=== PATIENT | male | born 1970 | race African-American/Black ===

== ENCOUNTER 2020-08-27 21:05 | Inpatient (IN) ==
--- NOTE | 2020-08-27 21:37 | XRay Report ---
XR chest 1V portable HISTORY: Atypical Chest Pain COMPARISON: None. FINDINGS: No pneumothorax. The cardiac silhouette is mildly enlarged. There is near diffuse interstit ial/vascular thickening most pronounced within the perihilar location. This favors mild pulmonary melquiades ma. There are trace bilateral pleural effusions. IMPRESSION: Cardiomegaly with interstitial pulmonary edema and trace bilateral pleural effusions. ACT 112: Negative or not required by law. Electronically signed by: Brad Walker M.D. 08/27/2020 9:35 PM
[2020-08-27] MEDS ORDERED: ALBUTEROL 0.083% NEBU SOLN 3 ML VIAL NEB STA (21:57)
[2020-08-27] MEDS ORDERED: SODIUM CHLORIDE 0.9% 500 ML IV ONE (21:57)
--- NOTE | 2020-08-27 22:00 | Emergency Department Note ---
Impression & Plan Congestive heart failure, Abnormal ECG, Pulmonary edema, Acute hyperglycemia ED Provider Note NAME: LOPEZ RODRÍGUEZ AGE: 50 SEX: M : 1970 ARRIVES VIA: Walk-In INFORMANT: Patient ED PROVIDER(S): Chris Guzman DO CHIEF COMPLAINT: Shortness of breath and dry cough HPI: Patient is a 50-year-old male who presents to the ER for shortness of breath which has been getting worse for the past week. He admits to a little bit of a dry cough. Denies any runny nose or sore throat. No loss of taste or smell. No chest pain. No belly pain, nausea, vomiting, or diarrhea. No dysuria, urgency, or frequency. He has a history of diabetes, hypertension, hyperlipidemia and is a smoker. No history of COPD or asthma. He says that symptoms are worse when he lays down at night to sleep. No other exacerbating or remitting factors. 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 ROS: See above HPI for pertinent positives & negatives. A total of 10 systems reviewed and were otherwise negative. PAST MEDICAL HISTORY:See Below PAST SURGICAL HISTORY:See Below FAMILY HISTORY:See Below SOCIAL HISTORY:See Below HOME MEDICATIONS:See Below ALLERGIES:See Below VITALS:See Below PHYSICAL EXAMINATION: GENERAL: Sitting up in bed, alert, well appearing, well nourished, no distress, non-toxic EYE EXAM: normal conjunctiva. OROPHARYNX: no exudate, no erythema, lips, buccal mucosa, and tongue normal and mucous membranes are moist NECK: supple, no nuchal rigidity, no adenopathy, non-tender LUNGS: Clear to auscultation. Normal chest wall mechanics HEART: Tachycardic, S1 normal and S2 normal ABDOMEN: abdomen soft, non-tender, normo-active bowel sounds, no masses, no rebound or guarding. BACK: Back is symmetrical on inspection and there is no deformity, no midline tenderness, no CVA tenderness. SKIN: no rashes and no bruising UPPER EXTREMITIES: upper extremities are grossly normal. LOWER EXTREMITIES: No pitting edema. NEURO EXAM: Normal sensorium, cranial nerves II-XII grossly intact, normal speech, no gross weakness of arms, no gross weakness of legs. MEDICAL DECISION MAKING: Patient is a 50-year-old male who presents ER for shortness of breath. IV was established blood work was obtained. Labs show mild leukocytosis of 1500. No significant anemia. D-dimer was negative. BMP with an elevated glucose of 445. LFTs bilirubin was unremarkable. Troponin was detectable but not +0.032. Lipase was normal. proBNP slightly elevated at thousand. Covid was negative. Chest x-ray with pulmonary edema and small pleural effusions. EKG with T wave inversions. This in combination with the chest x-ray does support CHF. He was initially given fluids as a table while to get the chest x-ray. This was stopped and he was given IV Lasix. He was updated bedside. Discussed with the hospitalist admitted for further work-up. Triage Nursing notes reviewed. Limited review of prior medical records performed Vital Signs: reviewed and remarkable for HTN and tachy Differential diagnosis: Differential diagnoses includes but is not limited to pneumonia, bronchitis, COPD/Asthma exacerbation, pneumothorax, pulmonary embolism, congestive heart failure, acute coronary syndrome ER treatment provided: See below Diagnostics interpreted by me: ECG: Sinus rhythm rate of 117 Left axis T wave inversion in the high lateral leads T wave inversion V4 through V6 QTC 451 Cardiac Monitoring: An order was placed for continuous cardiac monitoring. The monitor shows a rate of 122 with sinus rhythm. Laboratory studies: As stated above and show below. Imaging studies: Chest x-ray with pulmonary vascular congestion Consultation(s): Discussed with Dr. Theodore Sevilla for further evaluation Procedures: none Critical Care: None Past Med/Surg History Social History Smoking Status: Current every day smoker Tobacco Type: Cigarettes Preferred Language: Sinhala Feels Safe at Home: Yes Allergies Allergies Allergy/AdvReac Type Severity Reaction Status Date / Time No Known Allergies Allergy Unverified 08/27/20 22:24 Home Meds Home Medications Medication Instructions Recorded Confirmed lisinopril-hydrochlorothiazide 1 tab PO DAILY 08/27/20 08/27/20 metformin 1,000 mg PO BID 08/27/20 08/27/20 Results & Data (ED) Vital Signs Vital Signs - 24 hr 08/27/20 21:06 08/27/20 21:30 08/27/20 22:00 Temperature 36.2 C L Temperature Source Temporal Artery Scan Pulse Rate 121 H 115 H 119 H Pulse Rate [Right Radial] Pulse Rate from SpO2 Sensor 114 H Respiratory Rate 18 24 34 H Respiratory Effort / Characteristics Non-Labored Respiratory Depth Normal Respiratory Pattern Regular Blood Pressure 169/117 H 156/91 H 145/97 H Blood Pressure Mean 134 112 113 Blood Pressure Position Sitting Pulse Oximetry 93 93 Oxygen Delivery Method Room Air Sepsis Recent Fever Within 48 Hours No Sepsis New/Unexplained Change in Mental Status N/A Sepsis Action Taken by Nursing No Action Required Pulse Oximetry Post Tiitration 93 08/27/20 22:05 08/27/20 22:30 08/27/20 23:30 Temperature Temperature Source Pulse Rate 117 H 116 H Pulse Rate [Right Radial] 116 H Pulse Rate from SpO2 Sensor 117 H Respiratory Rate 16 29 H 19 Respiratory Effort / Characteristics Non-Labored Spontaneous Respiratory Depth Respiratory Pattern Blood Pressure 145/102 H 137/118 H Blood Pressure Mean 116 124 Blood Pressure Position Pulse Oximetry 95 96 Oxygen Delivery Method Room Air Sepsis Recent Fever Within 48 Hours Sepsis New/Unexplained Change in Mental Status Sepsis Action Taken by Nursing Pulse Oximetry Post Tiitration 08/28/20 00:01 Temperature Temperature Source Pulse Rate 119 H Pulse Rate [Right Radial] Pulse Rate from SpO2 Sensor 120 H Respiratory Rate 32 H Respiratory Effort / Characteristics Respiratory Depth Respiratory Pattern Blood Pressure 138/90 Blood Pressure Mean 106 Blood Pressure Position Pulse Oximetry 97 Oxygen Delivery Method Sepsis Recent Fever Within 48 Hours Sepsis New/Unexplained Change in Mental Status Sepsis Action Taken by Nursing Pulse Oximetry Post Tiitration Laboratory Data Result diagrams: 08/27/20 21:20 08/27/20 21:20 Lab Results 08/27/20 08/27/20 08/27/20 Range/Units 21:20 21:20 21:20 WBC 11.53 H (4.8-10.8) K/uL RBC 4.41 L (4.7-6.1) M/uL Hgb 16.0 (14.0-18.0) g/dL Hct 44.5 (42-52) % MCV 100.9 H (80-100) fL MCH 36.3 H (25-34) pg MCHC 36.0 (32-36) g/dL RDW Std Deviation 44.6 (36.4-46.3) fL RDW Coeff of Airam 12.1 (11.5-14.5) % Plt Count 241 (130-400) K/uL MPV 11.1 H (7.4-10.4) fL Immature Gran % (Auto) 0.5 % Neut % (Auto) 65.0 % Lymph % (Auto) 23.9 % [place] % (Auto) 8.2 % Eos % (Auto) 2.2 % Baso % (Auto) 0.2 % Neut # (Auto) 7.49 H (1.4-6.5) K/uL Lymph # (Auto) 2.76 (1.2-3.4) K/uL [place] # (Auto) 0.95 H (0.11-0.59) K/uL Eos # (Auto) 0.25 (0-0.5) K/uL Baso # (Auto) 0.02 (0-0.2) K/uL Immature Gran # (Auto) 0.06 H (0.00-0.02) K/uL APTT 25.6 (21.0-31.0) Seconds PTT Ratio 1.0 D-Dimer 480 (0-500) ug/L FEU Sodium 134 L (136-145) mmol/L Potassium 4.1 (3.5-5.1) mmol/L Chloride 105 (98-107) mmol/L Carbon Dioxide 22 (21-32) mmol/L Anion Gap 7.0 (3-11) BUN 13 (7-18) mg/dl Creatinine 1.06 (0.6-1.4) mg/dl Est Cr Clr Drug Dosing 104.8 ml/min Est GFR ( Amer) 93.7 ml/min Est GFR (Non-Af Amer) 80.9 ml/min BUN/Creatinine Ratio 12.3 (10-20) Glucose 445 H* (70-99) mg/dl POC Glucose (70-99) mg/dl Calcium 9.0 (8.5-10.1) mg/dl Total Bilirubin 0.5 (0.2-1) mg/dl AST 55 H (15-37) U/L ALT 61 (12-78) U/L Alkaline Phosphatase 79 (45-117) U/L Troponin I 0.032 (0-0.045) ng/ml NT-Pro-B Natriuret Pep 972 H (0-900) pg/ml Total Protein 6.7 (6.4-8.2) gm/dl Albumin 3.3 L (3.4-5.0) gm/dl Globulin 3.4 (2.5-4.0) gm/dl Albumin/Globulin Ratio 1.0 (0.9-2) Lipase 139 (73-393) U/L Beta-Hydroxybutyric Acd (0.2-2.81) mg/dl COVID-19 Eval Order SARS-CoV-2 (PCR) (Negative) 08/27/20 08/27/20 08/27/20 Range/Units 21:20 21:20 22:58 WBC (4.8-10.8) K/uL RBC (4.7-6.1) M/uL Hgb (14.0-18.0) g/dL Hct (42-52) % MCV (80-100) fL MCH (25-34) pg MCHC (32-36) g/dL RDW Std Deviation (36.4-46.3) fL RDW Coeff of Airam (11.5-14.5) % Plt Count (130-400) K/uL MPV (7.4-10.4) fL Immature Gran % (Auto) % Neut % (Auto) % Lymph % (Auto) % [place] % (Auto) % Eos % (Auto) % Baso % (Auto) % Neut # (Auto) (1.4-6.5) K/uL Lymph # (Auto) (1.2-3.4) K/uL [place] # (Auto) (0.11-0.59) K/uL Eos # (Auto) (0-0.5) K/uL Baso # (Auto) (0-0.2) K/uL Immature Gran # (Auto) (0.00-0.02) K/uL APTT (21.0-31.0) Seconds PTT Ratio D-Dimer (0-500) ug/L FEU Sodium (136-145) mmol/L Potassium (3.5-5.1) mmol/L Chloride (98-107) mmol/L Carbon Dioxide (21-32) mmol/L Anion Gap (3-11) BUN (7-18) mg/dl Creatinine (0.6-1.4) mg/dl Est Cr Clr Drug Dosing ml/min Est GFR ( Amer) ml/min Est GFR (Non-Af Amer) ml/min BUN/Creatinine Ratio (10-20) Glucose (70-99) mg/dl POC Glucose 357 H* (70-99) mg/dl Calcium (8.5-10.1) mg/dl Total Bilirubin (0.2-1) mg/dl AST (15-37) U/L ALT (12-78) U/L Alkaline Phosphatase (45-117) U/L Troponin I (0-0.045) ng/ml NT-Pro-B Natriuret Pep (0-900) pg/ml Total Protein (6.4-8.2) gm/dl Albumin (3.4-5.0) gm/dl Globulin (2.5-4.0) gm/dl Albumin/Globulin Ratio (0.9-2) Lipase (73-393) U/L Beta-Hydroxybutyric Acd (0.2-2.81) mg/dl COVID-19 Eval Order Covid19 at [facility] SARS-CoV-2 (PCR) NEGATIVE (Negative) Administered Medications Discontinued Medications Albuterol (Albuterol 0.083% Nebu Soln 3 Ml Vial) 2.5 mg NEB NOW STA Stop: 08/27/20 21:58 Last Admin: 08/27/20 22:03 Dose: 2.5 mg Documented by: [id number] Furosemide (Furosemide 40 Mg/4 Ml Vial) 40 mg IV NOW STA Stop: 08/27/20 22:44 Last Admin: 08/27/20 22:48 Dose: 40 mg Documented by: [id number] Furosemide (Furosemide 40 Mg/4 Ml Vial) 40 mg IV NOW STA Stop: 08/27/20 23:50 Last Admin: 08/28/20 00:00 Dose: 40 mg Documented by: [id number] Sodium Chloride (Nss) 500 mls @ 999 mls/hr IV .Q31M ONE Stop: 08/27/20 22:27 Last Infusion: 08/27/20 22:44 Dose: 0 mls/hr Documented by: [id number] Admin: 08/27/20 22:09 Dose: 999 mls/hr Documented by: [id number] Insulin Human Regular (Novolin-R Insulin Per Unit Charge) 6 units IV NOW STA Stop: 08/27/20 23:29 Last Admin: 08/27/20 23:37 Dose: 6 units Documented by: [id number] Cosigned by: [id number] Imaging Data Radiologist's Impression: Chest X-Ray 08/27/20 21:25 XR chest 1V portable HISTORY: Atypical Chest Pain COMPARISON: None. FINDINGS: No pneumothorax. The cardiac silhouette is mildly enlarged. There is near diffuse interstitial/vascular thickening most pronounced within the perihilar location. This favors mild pulmonary edema. There are trace bilateral pleural effusions. IMPRESSION: Cardiomegaly with interstitial pulmonary edema and trace bilateral pleural effusions. ACT 112: Negative or not required by law. Electronically signed by: Brad Walker M.D. 08/27/2020 9:35 PM Discharge Plan Visit Data Chief Complaint: Shortness of Breath/Dyspnea Stated Complaint: SOB ED Provider: Chris Guzman Discharge Problem: Congestive heart failure, Abnormal ECG, Pulmonary edema, Acute hyperglycemia Forms Stand Alone Forms: 3C Plus Prescriptions Prescriptions: No Action metformin 1,000 mg Tablet 1,000 mg PO BID RF: 0 lisinopril-hydrochlorothiazide 10-12.5 mg Tablet 1 tab PO DAILY RF: 0 Discharge Problem: Congestive heart failure Qualifiers: Heart failure type: unspecified Heart failure chronicity: unspecified Qualified Code(s): I50.9 - Heart failure, unspecified Pulmonary edema Qualifiers: Chronicity: acute Qualified Code(s): J81.0 - Acute pulmonary edema
[2020-08-27 22:22] LABS: Basophils # (auto) 0.02 K/uL (0-0.2); Basophils % (auto) 0.2 %; Eosinophils # (auto) 0.25 K/uL (0-0.5); Eosinophils % (auto) 2.2 %; Hematocrit (blood only) 44.5 % (42-52); Immature Granulocytes # (auto) 0.06 K/uL (0.00-0.02); Immature Granulocytes % (auto) 0.5 %; Lymphocytes # (auto) 2.76 K/uL (1.2-3.4); Lymphocytes % (auto) 23.9 %; Mean Corpuscular Hemoglobin 36.3 pg (25-34); Mean Corpuscular Volume 100.9 fL (80-100); Mean Platelet Volume 11.1 fL (7.4-10.4); Monocytes # (auto) 0.95 K/uL (0.11-0.59); Monocytes % (auto) 8.2 %; Neutrophils # (auto) 7.49 K/uL (1.4-6.5); Platelet Count 241 K/uL (130-400); RDW Coefficient of Variation 12.1 % (11.5-14.5); RDW Standard Deviation 44.6 fL (36.4-46.3); Red Blood Count 4.41 M/uL (4.7-6.1); White Blood Count 11.53 K/uL (4.8-10.8)
[2020-08-27 22:33] LABS: Albumin Level 3.3 gm/dl (3.4-5.0); BUN Creatinine Ratio 12.3 (10-20); Bilirubin,Total 0.5 mg/dl (0.2-1); Creatinine Clr Calc Pharmacy 104.8 ml/min; Est GFR (African American) 93.7 ml/min; Est GFR (Non-African American) 80.9 ml/min; Potassium 4.1 mmol/L (3.5-5.1); Total Protein 6.7 gm/dl (6.4-8.2); Troponin I 0.032 ng/ml (0-0.045)
[2020-08-27 22:35] LABS: Globulin 3.4 gm/dl (2.5-4.0)
[2020-08-27 22:36] LABS: D Dimer 480 ug/L FEU (0-500); Partial Thromboplastin Time 25.6 Seconds (21.0-31.0)
[2020-08-27] MEDS ORDERED: FUROSEMIDE 40 MG/4 ML VIAL IV STA ×2 (22:43→23:49)
[2020-08-27] MEDS ORDERED: NovoLIN-R INSULIN PER UNIT CHARGE IV STA (23:28)
--- NOTE | 2020-08-27 23:51 | History & Physical Report ---
Date of Service August 27, 2020 Assessment & Plan (1) Pulmonary edema: Vignesh Lee is a 50-year-old male with past medical history significant for hypertension, diabetes; who presents for 1 week history of shortness of breath with exertion. Pulmonary edema: -CXR on admission demonstrating concerns for cardiomegaly with interstitial pulmonary edema and trace bilateral pleural effusions -BNP 972 -Mild troponin elevation (0.032) likely in the setting of cardiomegaly/heart strain will trend overnight -Mild white count elevation to 11.53, will continue to monitor -Covid negative -Received 40 of IV Lasix x2 in ED -Echo in a.m. -Repeat CXR in a.m. -Lipid profile in a.m. Diabetes: -Glucose on admission 445, patient was not fasting prior to this collection -Received 6 units of IV insulin in ED -Hold home oral regimen -BSG's ACHS -Sliding scale insulin ordered -A1c in a.m. Hypertension: -Continue home lisinopril/hydrochlorothiazide Diet: Low-sodium/carb consistent CODE STATUS: Full code (2) HTN (hypertension): (3) Diabetes: History of Present Illness Primary Care Provider: NO PCP Vignesh Lee is a 50-year-old male with past medical history significant for hypertension, diabetes; who presents for 1 week history of shortness of breath with exertion. 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 This culminated yesterday when he climbs 1 flight of stairs and felt winded to the point where he had to sit down. Has never previously had symptoms like this nor had requirements of needing to rest with such little exertion. Remains relatively active given his work, however endorses that over the last several weeks he has been eating worse than he normally would be. Does not recall any specific salty foods but realizes that this may have been a problem. Previously was a 20+ year smoker however decided given this admission this is the time to quit. Minimal alcohol consumption (1-2 times per month 1-2 drinks at a time). No recreational drug use. Did not have any chest pain, palpitations, headache, nausea, vomiting, swelling of arms or legs. Allergies Allergy/AdvReac Type Severity Reaction Status Date / Time No Known Allergies Allergy Unverified 08/27/20 22:24 Home Medications Medication Instructions Recorded Confirmed Type lisinopril-hydrochlorothiazide 1 tab PO DAILY 08/27/20 08/27/20 History metformin 1,000 mg PO BID 08/27/20 08/27/20 History Past Med/Surg History Social History Smoking Status: Former smoker Tobacco Type: Cigarettes Second Hand Exposure: No; Hx Alcohol Use: Yes Hx Substance Use: No Preferred Language: Cameroonian Beliefs That Will Affect Care: Yazidism Yazidism Beliefs: Faith, no pork products Current Living Situation: Family Feels Safe at Home: Yes Safety Concerns: Feels Safe At This Time Assistive Devices: Glasses Review of Systems Review of Systems: All systems reviewed & are unremarkable except as noted in HPI & below Physical Exam Constitutional: WD/WN, vitals as above Eyes: PERRL, conjunctivae normal, anicteric sclerae Respiratory: normal respiratory effort, lungs clear to auscultation Auscultation: no crackles, no rales, no rhonchi and no wheezes Cardiovascular: Rate/Rhythm: regular rhythm and + tachycardic Heart Sounds: no gallop, no murmur and no cardiac rub Vessels: normal peripheral pulses; no JVD Extremities: no edema Gastrointestinal (Abdomen): Inspection/Auscultation: normal bowel sounds; abdomen not distended Percussion/Palpation: abdomen soft; abdomen nontender and no guarding Musculoskeletal: no cyanosis or clubbing, extremities motor strength 5/5 Skin: no rashes, warm and dry Neurologic: PERRL, EOMI, accommodation nl, no face palsy, no dysarthria CN's II-XI intact bilaterally and moves all extremities Psychiatric: Orientation: alert and oriented x 3 Results & Data Results & Data ([facility]) Vital Signs (Past 12 Hours) Vital Signs Temp Pulse Pulse Resp BP Pulse Ox 08/27/20 22:30 117 H 29 H 145/102 H 96 08/27/20 22:05 116 H 16 95 08/27/20 22:00 119 H 34 H 145/97 H 08/27/20 21:30 115 H 24 156/91 H 93 08/27/20 21:06 36.2 C L 121 H 18 169/117 H 93 Laboratory Results 08/28/20 08/27/20 08/27/20 Range/Units 01:36 22:58 21:20 WBC (4.8-10.8) K/uL RBC (4.7-6.1) M/uL Hgb (14.0-18.0) g/dL Hct (42-52) % MCV (80-100) fL MCH (25-34) pg MCHC (32-36) g/dL RDW Std Deviation (36.4-46.3) fL RDW Coeff of Airam (11.5-14.5) % Plt Count (130-400) K/uL MPV (7.4-10.4) fL Immature Gran % (Auto) % Neut % (Auto) % Lymph % (Auto) % [place] % (Auto) % Eos % (Auto) % Baso % (Auto) % Neut # (Auto) (1.4-6.5) K/uL Lymph # (Auto) (1.2-3.4) K/uL [place] # (Auto) (0.11-0.59) K/uL Eos # (Auto) (0-0.5) K/uL Baso # (Auto) (0-0.2) K/uL Immature Gran # (Auto) (0.00-0.02) K/uL APTT (21.0-31.0) Seconds PTT Ratio D-Dimer (0-500) ug/L FEU Sodium (136-145) mmol/L Potassium (3.5-5.1) mmol/L Chloride (98-107) mmol/L Carbon Dioxide (21-32) mmol/L Anion Gap (3-11) BUN (7-18) mg/dl Creatinine (0.6-1.4) mg/dl Est Cr Clr Drug Dosing ml/min Est GFR ( Amer) ml/min Est GFR (Non-Af Amer) ml/min BUN/Creatinine Ratio (10-20) Glucose (70-99) mg/dl POC Glucose 254 H 357 H* (70-99) mg/dl Calcium (8.5-10.1) mg/dl Total Bilirubin (0.2-1) mg/dl AST (15-37) U/L ALT (12-78) U/L Alkaline Phosphatase (45-117) U/L Troponin I (0-0.045) ng/ml NT-Pro-B Natriuret Pep (0-900) pg/ml Total Protein (6.4-8.2) gm/dl Albumin (3.4-5.0) gm/dl Globulin (2.5-4.0) gm/dl Albumin/Globulin Ratio (0.9-2) Lipase (73-393) U/L Beta-Hydroxybutyric Acd (0.2-2.81) mg/dl COVID-19 Eval Order SARS-CoV-2 (PCR) NEGATIVE (Negative) 08/27/20 08/27/20 08/27/20 Range/Units 21:20 21:20 21:20 WBC (4.8-10.8) K/uL RBC (4.7-6.1) M/uL Hgb (14.0-18.0) g/dL Hct (42-52) % MCV (80-100) fL MCH (25-34) pg MCHC (32-36) g/dL RDW Std Deviation (36.4-46.3) fL RDW Coeff of Airam (11.5-14.5) % Plt Count (130-400) K/uL MPV (7.4-10.4) fL Immature Gran % (Auto) % Neut % (Auto) % Lymph % (Auto) % [place] % (Auto) % Eos % (Auto) % Baso % (Auto) % Neut # (Auto) (1.4-6.5) K/uL Lymph # (Auto) (1.2-3.4) K/uL [place] # (Auto) (0.11-0.59) K/uL Eos # (Auto) (0-0.5) K/uL Baso # (Auto) (0-0.2) K/uL Immature Gran # (Auto) (0.00-0.02) K/uL APTT 25.6 (21.0-31.0) Seconds PTT Ratio 1.0 D-Dimer 480 (0-500) ug/L FEU Sodium 134 L (136-145) mmol/L Potassium 4.1 (3.5-5.1) mmol/L Chloride 105 (98-107) mmol/L Carbon Dioxide 22 (21-32) mmol/L Anion Gap 7.0 (3-11) BUN 13 (7-18) mg/dl Creatinine 1.06 (0.6-1.4) mg/dl Est Cr Clr Drug Dosing 104.8 ml/min Est GFR ( Amer) 93.7 ml/min Est GFR (Non-Af Amer) 80.9 ml/min BUN/Creatinine Ratio 12.3 (10-20) Glucose 445 H* (70-99) mg/dl POC Glucose (70-99) mg/dl Calcium 9.0 (8.5-10.1) mg/dl Total Bilirubin 0.5 (0.2-1) mg/dl AST 55 H (15-37) U/L ALT 61 (12-78) U/L Alkaline Phosphatase 79 (45-117) U/L Troponin I 0.032 (0-0.045) ng/ml NT-Pro-B Natriuret Pep 972 H (0-900) pg/ml Total Protein 6.7 (6.4-8.2) gm/dl Albumin 3.3 L (3.4-5.0) gm/dl Globulin 3.4 (2.5-4.0) gm/dl Albumin/Globulin Ratio 1.0 (0.9-2) Lipase 139 (73-393) U/L Beta-Hydroxybutyric Acd (0.2-2.81) mg/dl COVID-19 Eval Order Covid19 at [facility] SARS-CoV-2 (PCR) (Negative) 08/27/20 Range/Units 21:20 WBC 11.53 H (4.8-10.8) K/uL RBC 4.41 L (4.7-6.1) M/uL Hgb 16.0 (14.0-18.0) g/dL Hct 44.5 (42-52) % MCV 100.9 H (80-100) fL MCH 36.3 H (25-34) pg MCHC 36.0 (32-36) g/dL RDW Std Deviation 44.6 (36.4-46.3) fL RDW Coeff of Airam 12.1 (11.5-14.5) % Plt Count 241 (130-400) K/uL MPV 11.1 H (7.4-10.4) fL Immature Gran % (Auto) 0.5 % Neut % (Auto) 65.0 % Lymph % (Auto) 23.9 % [place] % (Auto) 8.2 % Eos % (Auto) 2.2 % Baso % (Auto) 0.2 % Neut # (Auto) 7.49 H (1.4-6.5) K/uL Lymph # (Auto) 2.76 (1.2-3.4) K/uL [place] # (Auto) 0.95 H (0.11-0.59) K/uL Eos # (Auto) 0.25 (0-0.5) K/uL Baso # (Auto) 0.02 (0-0.2) K/uL Immature Gran # (Auto) 0.06 H (0.00-0.02) K/uL APTT (21.0-31.0) Seconds PTT Ratio D-Dimer (0-500) ug/L FEU Sodium (136-145) mmol/L Potassium (3.5-5.1) mmol/L Chloride (98-107) mmol/L Carbon Dioxide (21-32) mmol/L Anion Gap (3-11) BUN (7-18) mg/dl Creatinine (0.6-1.4) mg/dl Est Cr Clr Drug Dosing ml/min Est GFR ( Amer) ml/min Est GFR (Non-Af Amer) ml/min BUN/Creatinine Ratio (10-20) Glucose (70-99) mg/dl POC Glucose (70-99) mg/dl Calcium (8.5-10.1) mg/dl Total Bilirubin (0.2-1) mg/dl AST (15-37) U/L ALT (12-78) U/L Alkaline Phosphatase (45-117) U/L Troponin I (0-0.045) ng/ml NT-Pro-B Natriuret Pep (0-900) pg/ml Total Protein (6.4-8.2) gm/dl Albumin (3.4-5.0) gm/dl Globulin (2.5-4.0) gm/dl Albumin/Globulin Ratio (0.9-2) Lipase (73-393) U/L Beta-Hydroxybutyric Acd (0.2-2.81) mg/dl COVID-19 Eval Order SARS-CoV-2 (PCR) (Negative) Medications Administered Current Inpatient Medications Acetaminophen (Acetaminophen 325 Mg Tab) 650 mg PO Q4H PRN PRN Reason: pain/fever Stop: 09/27/20 01:23 Al Hydrox/Mg Hydrox/Simethicone (Aluminum/Magnesium Susp 30 Ml Udc) 30 ml PO Q6H PRN PRN Reason: Dyspepsia Stop: 09/27/20 01:23 Dextrose (Dextrose 50% 50 Ml Syringe) 25 - 50 ml IV UD PRN; Protocol PRN Reason: Hypoglycemia Protocol Stop: 09/27/20 01:23 Glucagon (Glucagon For Inj 1 Mg Vial) 1 mg SQ UD PRN; Protocol PRN Reason: Hypoglycemia Protocol Stop: 09/27/20 01:23 Glucose (Glucose 10 Tabs/Tube) 4 - 8 tabs PO UD PRN; Protocol PRN Reason: Hypoglycemia Protocol Stop: 09/27/20 01:23 Glucose (Glucose 40% Gel 15 Gm Tube) 15 - 30 gm PO UD PRN; Protocol PRN Reason: Hypoglycemia Protocol Stop: 09/27/20 01:23 Lisinopril/HCTZ (Lisinopril/Hctz 10/12.5mg Tab) 1 tab PO DAILY MALAIKA Stop: 09/27/20 08:59 Insulin Aspart (Insulin Aspart 100 Units/Ml 3 Ml Pen) 0 units SC ACHS MALAIKA Stop: 09/27/20 01:59 Last Admin: 08/28/20 02:05 Dose: 3 units Documented by: Magnesium Hydroxide (Magnesium Hydroxide Susp 30 Ml Udc) 30 ml PO Q6H PRN PRN Reason: Constipation Stop: 09/27/20 01:23 Miscellaneous (Carbohydrates For Hypoglycemia ) 15 - 30 gm PO UD PRN PRN Reason: Hypoglycemia Protocol Stop: 09/27/20 01:23 Ondansetron HCl (Ondansetron Inj 2 Mg/Ml 2 Ml Vial) 4 mg IV Q6H PRN PRN Reason: Nausea Stop: 09/27/20 01:23 Polyethylene Glycol (Polyethylene (Miralax) 17 Gm Pack) 17 gm PO DAILY PRN PRN Reason: Constipation Stop: 09/27/20 01:23 Supervising Physician Co-Signing Physician Notes Attending addendum: I have physically seen this patient, have supervised the medical residents activities, and agree with the H&P unless as otherwise noted. Assessment and Plan: Interstitial pulmonary edema/CHF/hypertension- The patient will be admitted to telemetry for serial cardiac enzymes, serial EKG's, cardiac rhythm monitoring and a 2-D echocardiogram with Dopplers. Received a total of Lasix 80 mg IV in the ED Follow serial chest x-rays and BMP Hold lisinopril/HCTZ due to borderline blood pressure Diabetes mellitus- Glucose on admission 445, for which he received 6 units IV regular insulin from the ED Placed on Accu-Cheks before meals and at bedtime with NovoLog coverage per scale May require an additional regular insulin IV bolus Check a hemoglobin A1c Remaining orders and notations as noted Resident Activity Tracking Resident Involvement: Resident Care Provided Care Provided: Adult Hospital Medicine (1) Pulmonary edema Chronicity: acute Qualified Code(s): J81.0 - Acute pulmonary edema
[2020-08-28] MEDS ORDERED: GLUCAGON FOR INJ 1 MG VIAL SQ PRN (01:24)
[2020-08-28] MEDS ORDERED: ACETAMINOPHEN 325 MG TAB PO PRN (01:24)
[2020-08-28] MEDS ORDERED: POLYETHYLENE (MIRALAX) 17 GM PACK PO PRN (01:24)
[2020-08-28] MEDS ORDERED: ALUMINUM/MAGNESIUM SUSP 30 ML UDC PO PRN (01:24)
[2020-08-28] MEDS ORDERED: CARBOHYDRATES FOR HYPOGLYCEMIA PO PRN (01:24)
[2020-08-28] MEDS ORDERED: GLUCOSE 10 TABS/TUBE PO PRN (01:24)
[2020-08-28] MEDS ORDERED: ONDANSETRON INJ 2 MG/ML 2 ML VIAL IV PRN (01:24)
[2020-08-28] MEDS ORDERED: MAGNESIUM HYDROXIDE SUSP 30 ML UDC PO PRN (01:24)
[2020-08-28] MEDS ORDERED: DEXTROSE 50% 50 ML SYRINGE IV PRN (01:24)
[2020-08-28] MEDS ORDERED: GLUCOSE 40% GEL 15 GM TUBE PO PRN (01:24)
[2020-08-28] MEDS ORDERED: METOPROLOL TARTRATE 1 MG/ML VIAL IV STA (01:39)
[2020-08-28] MEDS: INSULIN ASPART 100 UNITS/ML 3 ML PEN SC SCH ×5 (02:05→20:12)
[2020-08-28 06:23] LABS: Basophils # (auto) 0.02 K/uL (0-0.2); Basophils % (auto) 0.2 %; Eosinophils # (auto) 0.19 K/uL (0-0.5); Eosinophils % (auto) 1.6 %; Hematocrit (blood only) 43.3 % (42-52); Hemoglobin 15.6 g/dL (14.0-18.0); Immature Granulocytes # (auto) 0.06 K/uL (0.00-0.02); Immature Granulocytes % (auto) 0.5 %; Lymphocytes # (auto) 2.19 K/uL (1.2-3.4); Lymphocytes % (auto) 18.9 %; Mean Corpuscular Hemoglobin 37.1 pg (25-34); Mean Corpuscular Volume 102.9 fL (80-100); Mean Platelet Volume 10.6 fL (7.4-10.4); Monocytes # (auto) 0.86 K/uL (0.11-0.59); Monocytes % (auto) 7.4 %; Neutrophils # (auto) 8.28 K/uL (1.4-6.5); Neutrophils % (auto) 71.4 %; Platelet Count 242 K/uL (130-400); RDW Coefficient of Variation 12.1 % (11.5-14.5); RDW Standard Deviation 45.9 fL (36.4-46.3); Red Blood Count 4.21 M/uL (4.7-6.1)
[2020-08-28 06:58] LABS: BUN Creatinine Ratio 17.9 (10-20); Calcium 8.7 mg/dl (8.5-10.1); Creatinine Clr Calc Pharmacy 130.7 ml/min; Est GFR (African American) 116.9 ml/min; Est GFR (Non-African American) 100.9 ml/min; Potassium 3.6 mmol/L (3.5-5.1)
[2020-08-28 07:19] LABS: Estimated Average Glucose 286 mg/dl; Hemoglobin A1C 11.6 % (4.5-5.6)
--- NOTE | 2020-08-28 08:48 | XRay Report ---
XR chest 1V portable HISTORY: 50 years-old Male pulmonary edema acute shortness of breath COMPARISON: Chest radiograph 08/27/2020 TECHNIQUE: Portable AP view of the chest FINDINGS: Cardiac silhouette is enlarged. Pulmonary vascular congestion with decreased pulmonary edema. Trace p leural effusions. Mild right greater than left bibasilar opacities. No pneumothorax. Degenerative ace nges of the shoulders and spine. IMPRESSION: 1. Cardiomegaly with decreased pulmonary edema. 2. Trace pleural effusions. 3. Mild asymmetric right lung base opacities suggestive of atelectasis. Pneumonia considered less lik leonila. ACT 112: Negative or not required by law. The above report was generated using voice recognition software. It may contain grammatical, syntax o r spelling errors. Electronically signed by: Darinel Dominguez M.D. 08/28/2020 8:47 AM
[2020-08-28] MEDS ORDERED: LISINOPRIL/HCTZ 10/12.5MG TAB PO SCH (09:00)
[2020-08-28] MEDS ORDERED: FUROSEMIDE 40 MG in SYRINGE 0 ML IV ONE ×2 (09:15→17:00)
[2020-08-28] MEDS: MAGNESIUM OXIDE 400 MG TAB PO SCH ×2 (09:35→20:10)
[2020-08-28] MEDS: INSULIN GLARGINE SOLOSTAR 100 UNITS/ML 3 ML PEN SC SCH ×2 (09:35→20:11)
[2020-08-28] MEDS: POTASSIUM CHLORIDE CRTAB 20 MEQ TABCR PO SCH ×2 (09:35→20:10)
--- NOTE | 2020-08-28 11:09 | XCELERA ---
[id number]
[2020-08-28 14:58] LABS: Ferritin 146.6 ng/ml (8-388); Thyroid Stimulating Hormone 2.73 uIu/ml (0.300-4.500); Troponin I 0.034 ng/ml (0-0.045)
[2020-08-28 15:28] LABS: Folate (Folic Acid) > 20.00 ng/ml (>5.38); Vitamin B12 139 pg/ml (193-986)
[2020-08-28] MEDS ORDERED: CYANOCOBALAMIN 1000 MCG/ML VIAL IM ONE (17:00)
--- NOTE | 2020-08-28 22:08 | Hospitalist Progress Note ---
Date of Service August 28, 2020 Assessment & Plan (1) Acute combined systolic and diastolic heart failure: Patient with new-onset cardiomyopathy, etiology uncertain. EF 30-35%; global hypokinesis. No LVH. Diastolic dysfunction present. No valvular disease. No prior h/o CAD. He remains volume overloaded but improved clinically & radiographically since admission. Gave 2 doses of IV lasix 40mg today with excellent diuresis. Will hold off on beta elizabeth today as tachycardia is compensatory. But can likely start metoprolol xl 25mg once daily tomorrow. Restart ZENA but will lower to 5mg/day. Stop HCTZ. Add K and mag supplementation. Recheck labs in am. Salt-restricted diet. Fluid-restrict. Needs CHF teaching. See "cardiomyopathy" below for additional details. (2) Cardiomyopathy: Etiology uncertain. Ischemic? - but no wall motion abnormalities on echo. [id number]-[id number], given his uncontrolled DM, abnormal EKG, and HTN, deserves ischemic evaluation. Post-viral? - but no recent infectious process. Certainly at risk of COVID with frequent travel. Check COVID serum antibodies. COVID PCR on intake was negative. SLE / other autoimmune? Mother had SLE. Send ARTURO. Check ZENA level. Check ferritin, SPEP. Patient has B12 deficiency and macrocytosis. Thus, check for other deficiencies including thiamine. Diurese. Add BB tomorrow. Continue ZENA (vs entresto). At discharge - lasix 40mg daily vs BID. Formal cardiology consultation with [facility] cardiology. (3) Macrocytosis: 2nd b12 deficiency. see below. folate level wnl. check thiamine to be complete. (4) Vitamin B12 deficiency: severe. unusual given his age and overall diet. he is not vegan. start vitamin B12 injections while here, then send home on vitamin B12 1000mcg daily. will need f/u as outpatient. (5) Diabetes mellitus type 2, uncontrolled: severely uncontrolled. a1c 11.6%. add lantus 15 units BID. novolog correction with carb coverage. resume metformin at d/c. ideally needs lantus at discharge as well. (6) Essential (primary) hypertension: controlled. continue ZENA but stop HCTZ as he will need lasix at discharge. add low-dose BB tomorrow. (7) Abnormal ECG: lateral ST changes on limb leads and anterior leads. no prior h/o CAD. trops neg x 3. no recent ischemic symptoms. no regional wall motion abnormalities on 2D echo. [id number] he has risk factors for CAD - uncontrolled T2DM, HTN, etc. as part of new-onset cardiomyopathy will need ischemic evaluation. likely he will get this back in [place]. (8) DVT prophylaxis: start lovenox 40mg daily updated at bedside brief update given to sister by phone Admission and Anticipated Discharge Date Admission Date: August 27, 2020 Subjective patient is feeling better today. orthopnea and dyspnea improved. denies LE edema. denies abdominal swelling/increasing girth. denies any exertional chest pain in the months leading up to this admission. patient denies h/o recent illness, COVID, etc. 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 denies excessive etoh use. denies h/o illicit drug use. he practices the Islamic татьяна and does not eat pork; however, he consumes all other foods. patient denies any family h/o CAD or CHF. his mother, however, had SLE. he denies h/o sarcoid. Review of Systems Constitutional: no fever, no chills, no weakness and no anorexia Respiratory: + dyspnea on exertion Cardiovascular: + dyspnea on exertion and + orthopnea; no chest pain, no dyspnea at rest and no edema Gastrointestinal: no abdominal pain and no bloating Physical Exam Constitutional: no acute distress and no altered mental status ENMT: external ear and nose normal, oropharynx normal Respiratory: no respiratory distress Auscultation: + rales (bases b/l - mild); no wheezes Cardiovascular: Rate/Rhythm: regular rhythm and + tachycardic Heart Sounds: normal S1, normal S2 and + gallop; no murmur Vessels: posterior tibial pulses present and dorsalis pedis pulses present; no JVD Extremities: + edema (trace b/l ) Gastrointestinal (Abdomen): normal bowel sounds, soft, nontender, no hepatosplenomegaly Skin: no rashes, warm and dry Psychiatric: A+Ox3, euthymic affect Results & Data Results & Data ([facility]) Vital Signs (Past 12 Hours) Vital Signs Temp Pulse Pulse Resp BP Pulse Ox 08/28/20 19:40 37.0 C 102 H 18 129/76 97 08/28/20 15:36 108 H 08/28/20 15:16 36.8 C 106 H 18 129/88 96 08/28/20 11:29 36.6 C 104 H 20 145/96 H 96 Laboratory Results Laboratory Results - last 24 hr 08/27/20 08/27/20 08/27/20 21:20 21:20 21:20 WBC 11.53 H RBC 4.41 L Hgb 16.0 Hct 44.5 MCV 100.9 H MCH 36.3 H MCHC 36.0 RDW Std Deviation 44.6 RDW Coeff of Airam 12.1 Plt Count 241 MPV 11.1 H Immature Gran % (Auto) 0.5 Neut % (Auto) 65.0 Lymph % (Auto) 23.9 [place] % (Auto) 8.2 Eos % (Auto) 2.2 Baso % (Auto) 0.2 Neut # (Auto) 7.49 H Lymph # (Auto) 2.76 [place] # (Auto) 0.95 H Eos # (Auto) 0.25 Baso # (Auto) 0.02 Immature Gran # (Auto) 0.06 H APTT 25.6 PTT Ratio 1.0 D-Dimer 480 Sodium 134 L Potassium 4.1 Chloride 105 Carbon Dioxide 22 Anion Gap 7.0 BUN 13 Creatinine 1.06 Est Cr Clr Drug Dosing 104.8 Est GFR ( Amer) 93.7 Est GFR (Non-Af Amer) 80.9 BUN/Creatinine Ratio 12.3 Glucose 445 H* POC Glucose Estimat Average Glucose Hemoglobin A1c Calcium 9.0 Iron Transferrin Transferrin % Sat Ferritin Total Bilirubin 0.5 AST 55 H ALT 61 Alkaline Phosphatase 79 Troponin I 0.032 NT-Pro-B Natriuret Pep 972 H Total Protein 6.7 Albumin 3.3 L Globulin 3.4 Albumin/Globulin Ratio 1.0 Triglycerides Cholesterol LDL Cholesterol, Calc VLDL Cholesterol, Calc HDL Cholesterol Cholesterol/HDL Ratio Lipase 139 Angiotensin Convert Enz Vitamin B12 Folate Beta-Hydroxybutyric Acd TSH SARS-CoV-2 (PCR) SARS-CoV-2 IgG & IgM Ab 08/27/20 08/27/20 08/28/20 21:20 22:58 01:36 WBC RBC Hgb Hct MCV MCH MCHC RDW Std Deviation RDW Coeff of Airam Plt Count MPV Immature Gran % (Auto) Neut % (Auto) Lymph % (Auto) [place] % (Auto) Eos % (Auto) Baso % (Auto) Neut # (Auto) Lymph # (Auto) [place] # (Auto) Eos # (Auto) Baso # (Auto) Immature Gran # (Auto) APTT PTT Ratio D-Dimer Sodium Potassium Chloride Carbon Dioxide Anion Gap BUN Creatinine Est Cr Clr Drug Dosing Est GFR ( Amer) Est GFR (Non-Af Amer) BUN/Creatinine Ratio Glucose POC Glucose 357 H* 254 H Estimat Average Glucose Hemoglobin A1c Calcium Iron Transferrin Transferrin % Sat Ferritin Total Bilirubin AST ALT Alkaline Phosphatase Troponin I NT-Pro-B Natriuret Pep Total Protein Albumin Globulin Albumin/Globulin Ratio Triglycerides Cholesterol LDL Cholesterol, Calc VLDL Cholesterol, Calc HDL Cholesterol Cholesterol/HDL Ratio Lipase Angiotensin Convert Enz Vitamin B12 Folate Beta-Hydroxybutyric Acd TSH SARS-CoV-2 (PCR) NEGATIVE SARS-CoV-2 IgG & IgM Ab 08/28/20 08/28/20 08/28/20 05:44 05:44 06:11 WBC 11.60 H RBC 4.21 L Hgb 15.6 Hct 43.3 MCV 102.9 H MCH 37.1 H MCHC 36.0 RDW Std Deviation 45.9 RDW Coeff of Airam 12.1 Plt Count 242 MPV 10.6 H Immature Gran % (Auto) 0.5 Neut % (Auto) 71.4 Lymph % (Auto) 18.9 [place] % (Auto) 7.4 Eos % (Auto) 1.6 Baso % (Auto) 0.2 Neut # (Auto) 8.28 H Lymph # (Auto) 2.19 [place] # (Auto) 0.86 H Eos # (Auto) 0.19 Baso # (Auto) 0.02 Immature Gran # (Auto) 0.06 H APTT PTT Ratio D-Dimer Sodium 136 Potassium 3.6 Chloride 104 Carbon Dioxide 24 Anion Gap 8.0 BUN 15 Creatinine 0.85 Est Cr Clr Drug Dosing 130.7 Est GFR ( Amer) 116.9 Est GFR (Non-Af Amer) 100.9 BUN/Creatinine Ratio 17.9 Glucose 298 H POC Glucose Estimat Average Glucose 286 Hemoglobin A1c 11.6 H Calcium 8.7 Iron Transferrin Transferrin % Sat Ferritin Total Bilirubin AST ALT Alkaline Phosphatase Troponin I NT-Pro-B Natriuret Pep Total Protein Albumin Globulin Albumin/Globulin Ratio Triglycerides 100 Cholesterol 154 LDL Cholesterol, Calc 93 VLDL Cholesterol, Calc 20 HDL Cholesterol 41 Cholesterol/HDL Ratio 4 Lipase Angiotensin Convert Enz Vitamin B12 Folate Beta-Hydroxybutyric Acd TSH SARS-CoV-2 (PCR) SARS-CoV-2 IgG & IgM Ab 08/28/20 08/28/20 08/28/20 06:11 07:37 11:45 WBC RBC Hgb Hct MCV MCH MCHC RDW Std Deviation RDW Coeff of Airam Plt Count MPV Immature Gran % (Auto) Neut % (Auto) Lymph % (Auto) [place] % (Auto) Eos % (Auto) Baso % (Auto) Neut # (Auto) Lymph # (Auto) [place] # (Auto) Eos # (Auto) Baso # (Auto) Immature Gran # (Auto) APTT PTT Ratio D-Dimer Sodium Potassium Chloride Carbon Dioxide Anion Gap BUN Creatinine Est Cr Clr Drug Dosing Est GFR ( Amer) Est GFR (Non-Af Amer) BUN/Creatinine Ratio Glucose POC Glucose 280 H 320 H* Estimat Average Glucose Hemoglobin A1c Calcium Iron Transferrin Transferrin % Sat Ferritin Total Bilirubin AST ALT Alkaline Phosphatase Troponin I 0.030 NT-Pro-B Natriuret Pep Total Protein Albumin Globulin Albumin/Globulin Ratio Triglycerides Cholesterol LDL Cholesterol, Calc VLDL Cholesterol, Calc HDL Cholesterol Cholesterol/HDL Ratio Lipase Angiotensin Convert Enz Vitamin B12 Folate Beta-Hydroxybutyric Acd TSH SARS-CoV-2 (PCR) SARS-CoV-2 IgG & IgM Ab 08/28/20 08/28/20 08/28/20 11:45 14:20 14:20 WBC RBC Hgb Hct MCV MCH MCHC RDW Std Deviation RDW Coeff of Airam Plt Count MPV Immature Gran % (Auto) Neut % (Auto) Lymph % (Auto) [place] % (Auto) Eos % (Auto) Baso % (Auto) Neut # (Auto) Lymph # (Auto) [place] # (Auto) Eos # (Auto) Baso # (Auto) Immature Gran # (Auto) APTT PTT Ratio D-Dimer Sodium Potassium Chloride Carbon Dioxide Anion Gap BUN Creatinine Est Cr Clr Drug Dosing Est GFR ( Amer) Est GFR (Non-Af Amer) BUN/Creatinine Ratio Glucose POC Glucose 319 H* Estimat Average Glucose Hemoglobin A1c Calcium Iron 56 Transferrin 221 Transferrin % Sat 18 L Ferritin 146.6 Total Bilirubin AST ALT Alkaline Phosphatase Troponin I 0.034 NT-Pro-B Natriuret Pep Total Protein Albumin Globulin Albumin/Globulin Ratio Triglycerides Cholesterol LDL Cholesterol, Calc VLDL Cholesterol, Calc HDL Cholesterol Cholesterol/HDL Ratio Lipase Angiotensin Convert Enz Vitamin B12 139 L Folate > 20.00 Beta-Hydroxybutyric Acd TSH 2.730 SARS-CoV-2 (PCR) SARS-CoV-2 IgG & IgM Ab 08/28/20 08/28/20 08/28/20 14:20 14:20 16:26 WBC RBC Hgb Hct MCV MCH MCHC RDW Std Deviation RDW Coeff of Airam Plt Count MPV Immature Gran % (Auto) Neut % (Auto) Lymph % (Auto) [place] % (Auto) Eos % (Auto) Baso % (Auto) Neut # (Auto) Lymph # (Auto) [place] # (Auto) Eos # (Auto) Baso # (Auto) Immature Gran # (Auto) APTT PTT Ratio D-Dimer Sodium Potassium Chloride Carbon Dioxide Anion Gap BUN Creatinine Est Cr Clr Drug Dosing Est GFR ( Amer) Est GFR (Non-Af Amer) BUN/Creatinine Ratio Glucose POC Glucose 297 H Estimat Average Glucose Hemoglobin A1c Calcium Iron Transferrin Transferrin % Sat Ferritin Total Bilirubin AST ALT Alkaline Phosphatase Troponin I NT-Pro-B Natriuret Pep Total Protein Albumin Globulin Albumin/Globulin Ratio Triglycerides Cholesterol LDL Cholesterol, Calc VLDL Cholesterol, Calc HDL Cholesterol Cholesterol/HDL Ratio Lipase Angiotensin Convert Enz Pending Vitamin B12 Folate Beta-Hydroxybutyric Acd TSH SARS-CoV-2 (PCR) SARS-CoV-2 IgG & IgM Ab Pending 08/28/20 20:08 WBC RBC Hgb Hct MCV MCH MCHC RDW Std Deviation RDW Coeff of Airam Plt Count MPV Immature Gran % (Auto) Neut % (Auto) Lymph % (Auto) [place] % (Auto) Eos % (Auto) Baso % (Auto) Neut # (Auto) Lymph # (Auto) [place] # (Auto) Eos # (Auto) Baso # (Auto) Immature Gran # (Auto) APTT PTT Ratio D-Dimer Sodium Potassium Chloride Carbon Dioxide Anion Gap BUN Creatinine Est Cr Clr Drug Dosing Est GFR ( Amer) Est GFR (Non-Af Amer) BUN/Creatinine Ratio Glucose POC Glucose 234 H Estimat Average Glucose Hemoglobin A1c Calcium Iron Transferrin Transferrin % Sat Ferritin Total Bilirubin AST ALT Alkaline Phosphatase Troponin I NT-Pro-B Natriuret Pep Total Protein Albumin Globulin Albumin/Globulin Ratio Triglycerides Cholesterol LDL Cholesterol, Calc VLDL Cholesterol, Calc HDL Cholesterol Cholesterol/HDL Ratio Lipase Angiotensin Convert Enz Vitamin B12 Folate Beta-Hydroxybutyric Acd TSH SARS-CoV-2 (PCR) SARS-CoV-2 IgG & IgM Ab PG Care Time/CCT Total # of Minutes Spent Total Time Spent with Patient: Total time spent is greater than 50% in coordination of care (as documented) at patient's floor/unit and/or counseling patient: Coding Level of Care Code 14098 Subseq Hosp Care Lvl 3 Diagnoses Acute combined systolic and diastolic heart failure I50.41 Cardiomyopathy I42.9 Cardiomyopathy type: unspecified Macrocytosis D75.89 Vitamin B12 deficiency E53.8 Diabetes mellitus type 2, uncontrolled E11.65 Glycemic state: with hyperglycemia Essential (primary) hypertension I10 Abnormal ECG R94.31 DVT prophylaxis Z29.9 (1) Cardiomyopathy Cardiomyopathy type: unspecified Qualified Code(s): I42.9 - Cardiomyopathy, unspecified (2) Diabetes mellitus type 2, uncontrolled Glycemic state: with hyperglycemia Qualified Code(s): E11.65 - Type 2 diabetes mellitus with hyperglycemia
--- NOTE | 2020-08-29 00:08 | Electrocardiogram Report ---
Test Reason : Blood Pressure : / mmHG Vent. Rate : 117 BPM Atrial Rate : 117 BPM P-R Int : 136 ms QRS Dur : 082 ms QT Int : 324 ms P-R-T Axes : 062 -23 108 degrees QTc Int : 451 ms Sinus tachycardia T wave abnormality, consider anterolateral ischemia Possible Inferior infarct Abnormal ECG No previous ECGs available Confirmed by Rian Rivera ([id number]) on 08/29/2020 12:07:59 AM Referred By: REFERRED SELF Confirmed By:Rian Rivera
--- NOTE | 2020-08-29 05:14 | Billing Data ---
Date of Service August 29, 2020 Coding Level of Care Code 16365 Initial Inpt Care Lvl 3
[2020-08-29 06:37] LABS: BUN Creatinine Ratio 22.4 (10-20); Calcium 8.7 mg/dl (8.5-10.1); Creatinine Clr Calc Pharmacy 130.7 ml/min; Est GFR (African American) 116.9 ml/min; Est GFR (Non-African American) 100.9 ml/min; Magnesium 1.9 mg/dl (1.8-2.4); Potassium 3.6 mmol/L (3.5-5.1)
[2020-08-29] MEDS: MAGNESIUM OXIDE 400 MG TAB PO SCH (08:11)
[2020-08-29] MEDS: POTASSIUM CHLORIDE CRTAB 20 MEQ TABCR PO SCH (08:11)
[2020-08-29] MEDS: INSULIN GLARGINE SOLOSTAR 100 UNITS/ML 3 ML PEN SC SCH (08:15)
[2020-08-29] MEDS: INSULIN ASPART 100 UNITS/ML 3 ML PEN SC SCH ×2 (08:17→12:13)
--- NOTE | 2020-08-29 08:32 | Hospitalist Progress Note ---
Date of Service August 29, 2020 Assessment & Plan (1) Pulmonary edema: Vignesh Lee is a 50-year-old male with past medical history significant for hypertension, diabetes; who presents for 1 week history of shortness of breath with exertion. Pulmonary edema: HFref -CXR on admission demonstrating concerns for cardiomegaly with interstitial pulmonary edema and trace bilateral pleural effusions -BNP 972 -Mild troponin elevation 0.032 did not rise -Covid negative -Received 40 of IV Lasix x2 in ED -Echo shows EF 30-35%, global hypokinesis and type 2 dm Diabetes: -Glucose on admission 445, patient was not fasting prior to this collection -Received 6 units of IV insulin in ED -Hold home oral regimen -BSG's ACHS -Sliding scale insulin ordered -A1c 11.6 Hypertension: -Continue home lisinopril, metoprolol Diet: Low-sodium/carb consistent CODE STATUS: Full code (2) HTN (hypertension): (3) Diabetes: Admission and Anticipated Discharge Date Admission Date: August 27, 2020 Results & Data Results & Data ([facility]) Vital Signs (Past 12 Hours) Vital Signs Temp Pulse Pulse Pulse Resp BP Pulse Ox 08/29/20 07:50 98.2 F 101 H 20 112/81 98 08/29/20 07:00 95 H 08/29/20 04:02 98.2 F 105 H 18 115/79 97 08/29/20 01:19 107 H 08/28/20 22:51 98.4 F 107 H 18 127/78 96 PG Care Time/CCT Total # of Minutes Spent Total Time Spent with Patient: Total time spent is greater than 50% in coordination of care (as documented) at patient's floor/unit and/or counseling patient: Coding Diagnoses Pulmonary edema J81.0 Chronicity: acute HTN (hypertension) I10 Diabetes E11.9 (1) Pulmonary edema Chronicity: acute Qualified Code(s): J81.0 - Acute pulmonary edema
[2020-08-29] MEDS ORDERED: ENOXAPARIN INJ 40 MG/0.4 ML SYR SQ SCH (09:00)
[2020-08-29] MEDS ORDERED: METOPROLOL SUCC 25MG EXT REL TAB PO SCH (09:00)
[2020-08-29] MEDS ORDERED: CYANOCOBALAMIN 1000 MCG/ML VIAL IM SCH (09:00)
[2020-08-29] MEDS ORDERED: lisinopril 5 MG TAB PO SCH (09:00)
--- NOTE | 2020-08-29 14:13 | Discharge Summary ---
Date of Service August 29, 2020 Admission HPI Per Admitting Provider Vignesh Lee is a 50-year-old male with past medical history significant for hypertension, diabetes; who presents for 1 week history of shortness of breath with exertion. 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 This culminated yesterday when he climbs 1 flight of stairs and felt winded to the point where he had to sit down. Has never previously had symptoms like this nor had requirements of needing to rest with such little exertion. Remains relatively active given his work, however endorses that over the last several weeks he has been eating worse than he normally would be. Does not recall any specific salty foods but realizes that this may have been a problem. Previously was a 20+ year smoker however decided given this admission this is the time to quit. Minimal alcohol consumption (1-2 times per month 1-2 drinks at a time). No recreational drug use. Did not have any chest pain, palpitations, headache, nausea, vomiting, swelling of arms or legs. Principal Diagnosis HFref diabetes Discharge Exam The patient appeared well Vital signs as documented. No JVD was seen Lungs are clear to auscultation and appear unlabored Cardiac exam, Rhythm is regular.. No murmurs, rubs or gallops. Abdominal exam reveals normal bowel sounds, soft non tender, no masses Extremities are nonedematous and both pedal pulses are normal. Neurologic exam is alert and oriented, no focal loss of strength or sensation Psychologically is without concerns for anxiety or depression. Discharge Data Allergies Allergy/AdvReac Type Severity Reaction Status Date / Time No Known Allergies Allergy Unverified 08/27/20 22:24 Consultations 08/27/20 23:07 ED Decision to Admit Stat Diabetes Follow up Diabetes Follow-up Needed for HgbA1c >9% Hospital Course (1) Pulmonary edema: Vignesh Lee is a 50-year-old male with past medical history significant for hypertension, diabetes; who presents for 1 week history of shortness of breath with exertion. Pulmonary edema: HFref -CXR on admission demonstrating concerns for cardiomegaly with interstitial pulmonary edema and trace bilateral pleural effusions -BNP 972 -Mild troponin elevation 0.032 did not rise -Covid negative -Received 40 of IV Lasix x2 in ED -Echo shows EF 30-35%, global hypokinesis and type 2 dm Will be dischared on lasix 40, lisinopril 5 and metoprolol 25, will benefit from cardiology follow up and likely have an ischemic evaluation. Pt did not want to stay in the hospital to complete any additional testing and in fact said if he was not discharged he would just leave. 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 Hypertension: -Continue home lisinopril, metoprolol Diet: Low-sodium/carb consistent CODE STATUS: Full code (2) HTN (hypertension): (3) Diabetes: Total Time Total Time Spent Total Time Spent (In Minutes): It required greater than 30 minutes to prepare this patient for discharge Discharge Plan Discharge Items Patient Disposition: Home - Self-Care Reason For Visit: DYSPNEA ON EXERTION Discharge Diagnosis: heart failure diabetes Activity: Per Instructions section Activity Comment: no intentional exercise until seen by your follow up doctor Non-emergency contact: Primary Care Provider and Export Coordinator Call non-emergency contact if: you have any medication questions and your symptoms worsen Follow-up/Referrals: Rian Rivera MD [Physician] - PCP,NO [Primary Care Provider] - Diet: Carb Consistent or DM2 and Low Sodium (2gm) Addtl Attending Provider Instructions: Call 911 and go to the Emergency Room if: * You have tightness or pain in your chest that does not go away with rest or Nitroglycerin * You are very short of breath even with rest Call your doctor if any of the following symptoms or problems start or get worse: * Shortness of breath or difficulty breathing * Wake up at night short of breath * Chest pain * Cough * Swelling of your hands, fee, or legs * More fatigued or tired with your normal activity * Palpitations - sudden fast heart beats WEIGHT * Weigh yourself every morning after using the bathroom. * Use the same scale. * Wear the same amount of clothing. * Write your weight down on your chart. * Call your doctor if you gain more than 2-3 pounds in 1-2 days. MEDICATIONS * Use this discharge instruction sheet for instructions. * Take your medications at the time your doctor ordered. * Do not skip a dose of your medicines. * If you miss a dose of medicine, take as soon as possible, but DO NOT DOUBLE A DOSE. * Read your medicine information when you get home. * Know all of the side effects of your medicine. * Call your doctor's office if you have any side effects. * Be sure all of your doctors know what medicine and herbs you take (including cold, flu, and herbal medicine). * Pain Medicine: If you do not get relief from your pain, please call your doctor for help. Take the following with you to your follow-up doctor appointments: * Weight Chart * Medication List * List of questions Do not drink excessive alcohol, beer or wine. Pending Studies at Discharge: No Stand-Alone Forms: [employer], Work/School Release, Smoking Cessation Medications and DC Order Prescriptions: New lisinopril [Zestril] 5 mg Tablet 5 mg PO QAM Qty: 30 RF: 5 metoprolol succinate 25 mg Tablet Extended Release 24 Hr 25 mg PO QAM Qty: 30 RF: 5 Lantus Solostar U-100 Insulin 100 unit/mL (3 mL) Insulin Pen 15 unit SC BID Qty: 15 RF: 5 insulin aspart U-100 [Novolog Flexpen U-100 Insulin] 100 unit/mL (3 mL) Ins ulin Pen 1 unit SC ACHS Qty: 15 RF: 0 (DME) blood-glucose meter [OneTouch Verio Meter] Misc See Rx Instructions .ROUTE .MEDSUPPLY Qty: 1 RF: 0 (DME) blood sugar diagnostic Strip See Rx Instructions .ROUTE .MEDSUPPLY Qty: 10 RF: 0 (DME) lancets Mis See Rx Instructions .ROUTE .MEDSUPPLY Qty: 100 RF: 0 furosemide [Lasix] 40 mg tablet 40 mg PO DAILY Qty: 30 RF: 5 Discontinued metformin 1,000 mg Tablet 1,000 mg PO BID RF: 0 lisinopril-hydrochlorothiazide 10-12.5 mg Tablet 1 tab PO DAILY RF: 0 Discharge Orders: Discharge Order (Routine); Ordered 08/29/20 Ordered By: Willard Burt/Other Patient Handouts: Managing Type 2 Diabetes, ED Heart Failure, Congestive (CHF), ED Low-Salt Diet, A1C Admission Data Admit Date/Time: 08/27/20 23:58 Attending Provider: Willard Murry Admit Provider: Jose Garland Primary Care Provider: PCP,NO Other Providers: Theodore Moore Coding Level of Care Code D/C Day Management >30 mins Diagnoses Pulmonary edema J81.0 Chronicity: acute HTN (hypertension) I10 Diabetes E11.9
[2020-08-30 08:50] LABS: CoV2 Total Antibody Negative (Negative)
--- NOTE | 2020-09-03 09:31 | Coding Query ---
CODING QUERY To promote full compliance with coding requirements relating to patient care, provider participation is requested in all cases of pinion staker uncertainty. Please assist us with the question(s) below: Coding Question(s): Progress note states "acute combine systolic and diastolic heart failure." Discharge states "HFrEF" (xxxx ) Acute Combined Systolic and Diastolic Heart Failure ( ) Acute Systolic Heart Failure ( ) Other Please Explain: Thank you Chito Alfonso Principal Diagnosis: "that condition established after study, to be chiefly responsible for occasioning the admission of the patient to the hospital for care." Co-Existing Principal Diagnosis: "when two or more diagnoses equally meet the criteria for principal diagnosis as determined by the circumstances of admission, diagnostic work up, and/or therapy provided, and the Alphabetic Index, Tabular List, or another coding guideline does not provide sequencing direction, any one of the diagnoses may be sequenced first." "When the physician has documented what appears to be a current diagnosis in the body of the record, but has not included the diagnosis in the final diagnostic statement, the physician should be asked whether the diagnosis should be added." ([facility] 2 QTR90. p3-4) AUBREY
[2020-09-03 14:07] LABS: Albumin 3.2 g/dL (3.8-4.8); Alpha 1 Globulin 0.3 g/dL (0.2-0.3); Alpha 2 Globulin 0.6 g/dL (0.5-0.9); Anti Nuclear Antibody Screen NEGATIVE (NEGATIVE); Beta-1-Globulin 0.4 g/dL (0.4-0.6); Beta-2-Globulin 0.4 g/dL (0.2-0.5); Gamma Globulin 0.8 g/dL (0.8-1.7); Monoclonal Protein Band 1 DNR g/dL (NONE DETECTED); Monoclonal Protein Band 2 DNR g/dL (NONE DETECTED); Monoclonal Protein Band 3 DNR g/dL (NONE DETECTED); Total Protein 5.6 g/dL (6.1-8.1)
== END 2020-08-29 14:15 | disposition home or self-care (01) | DRG 293 ==
LOC: ED 21:05 → SUATTDRO 23:58 → 2N 23:58

== ENCOUNTER 2020-10-05 07:14 | Observation (INO) ==
--- NOTE | 2020-10-05 08:13 | History & Physical Bridge Note ---
Date of Service October 05, 2020 History & Physical Bridge Note I have examined the patient, reviewed the History & Physical and in the interval since the performance of the History & Physical I have noted the following changes of clinical significance: no changes noted
--- NOTE | 2020-10-05 08:21 | Pre Anesthesia Assessment ---
Date of Service October 05, 2020 Pre Sedation Assessment Vital Signs Temp Pulse Resp BP Pulse Ox 10/05/20 07:21 36.9 C 106 H 22 130/88 98 Cardiovascular RRR, no murmur, no edema + tachycardic Respiratory normal respiratory effort, lungs clear to auscultation Pre-Sedation Airway Assessment Smoking Status: Former smoker Hx Sleep Apnea: No Short, Thick Neck: No Thyromental Distance: > or= 3.5 Finger Breadths Oral Cavity: + WNL Mallampati Class: I ASA: ASA2 NPO Status Date of Last Intake of Fluids: 10/04/20 Date of Last Intake of Solid Food: 10/04/20 Procedure Planning Contraindications for Sedation: none Current Medications Reviewed: Yes Notes The planned sedation has been discussed with the patient. Informed Consent was obtained. I have identified the patient, determined the appropriateness of sedation and have assessed the patient immediately prior to the procedure. All medicine(s) and interventions are by my order.
[2020-10-05] MEDS ORDERED: niCARdipine HCL INJ 2.5 MG/ML 10 ML AMP ONE (08:23)
[2020-10-05] MEDS ORDERED: fentaNYL citrate 100 MCG/2 ML VIAL ONE (08:23)
[2020-10-05] MEDS ORDERED: HEPARIN (PORCINE) 1000 UNIT/ML 10 ML (CATH LAB USE ONLY) ONE (08:23)
[2020-10-05] MEDS ORDERED: MIDAZOLAM HCL 1 MG/ML 2ML VIAL ONE (08:24)
[2020-10-05] MEDS ORDERED: NITROGLYCERIN/D5W 100MCG/ML 20ML SYR ONE (08:24)
[2020-10-05] MEDS ORDERED: ONDANSETRON INJ 2 MG/ML 2 ML VIAL ONE (09:22)
[2020-10-05 09:32] LABS: iSTAT Arterial Blood Gas HCO3 29 meg/L (19-24); iSTAT Arterial Blood Gas pCO2 46 mmHg (35-46); iSTAT Arterial Blood Gas pH 7.41 (7.35-7.45); iSTAT Arterial Blood Gas pO2 36 mmHg (80-95); iSTAT Carbon Dioxide 30 mmol/L (24-31); iSTAT Hematocrit 44 % (42-52); iSTAT Potassium 3.7 mmol/L (3.3-5.0); iSTAT Sodium 138 mmol/L (135-144)
[2020-10-05 09:32] LABS: iSTAT Arterial Blood Gas HCO3 24 meg/L (19-24); iSTAT Arterial Blood Gas pCO2 37 mmHg (35-46); iSTAT Arterial Blood Gas pH 7.42 (7.35-7.45); iSTAT Arterial Blood Gas pO2 71 mmHg (80-95); iSTAT Carbon Dioxide 25 mmol/L (24-31); iSTAT Hematocrit 40 % (42-52); iSTAT Hemoglobin 13.6 g/dl (14.0-18.0); iSTAT Potassium 3.1 mmol/L (3.3-5.0); iSTAT Sodium 144 mmol/L (135-144)
--- NOTE | 2020-10-05 09:40 | Cardiac Catheterization ---
Cardiac Cath Procedure Brief Procedure Date October 05, 2020 Pre-Procedure Diagnosis Pre-Procedure Diagnosis: CHF and Cardiomyopathy AUC Score AUC Score: 8 Post-Procedure Diagnosis Post-Procedure Diagnosis: Mild CAD, Decreased LV Systolic Function and Elevated Intracardiac Pressures Procedure(s) Performed Procedure(s) Performed: Coronary Angiography, Left Heart Cath and Right Heart Cath Electrician Crane Maintenance Dominick Ortiz MD Software Support Representative(s) Nancie Wright Estimated Blood Loss Estimated Blood Loss: <15cc Medication(s) Medication(s): Fentanyl (12.5 mcg IV), Heparin (5000 units IV), Lidocaine 1% (Local infiltration access site), Nicardipine (250 mcg intra-arterial after arterial sheath insertion) and Versed (1 mg IV) Medication(s): Zofran 4mg IV Preliminary Findings Large-caliber codominant coronary anatomy Diffuse ectasia with moderate luminal irregularities but no obstructive disease Poorly contractile ventricle on fluoroscopy (LV angiography not performed) Sinus tachycardia Pulmonary hypertension with elevated left heart pressures, narrow pulse pressure Recommendations Recommendations: Medical Therapy and/or Counseling Specimens Specimens: None Fluids (cc crystalloids) Fluids (cc crystalloids): 63 Anesthesia Start time: 840, stop time 934 Procedural Complication(s) None Disposition Nursing Coordinator Holding/Recovery
[2020-10-05] MEDS ORDERED: ACETAMINOPHEN 325 MG TAB PO PRN ×2 (09:43→10:28)
[2020-10-05] MEDS ORDERED: ONDANSETRON INJ 2 MG/ML 2 ML VIAL IV PRN (09:43)
[2020-10-05] MEDS ORDERED: SODIUM CHLORIDE 0.9% 1000ML 1,000 ML IV SCH (09:45)
--- NOTE | 2020-10-05 09:56 | Cardiac Catheterization ---
Cardiac Cath Procedure Full Procedure Date October 05, 2020 Pre-Procedure Diagnosis Pre-Procedure Diagnosis: CHF and Cardiomyopathy AUC Score AUC Score: 8 Post-Procedure Diagnosis Post-Procedure Diagnosis: Mild CAD, Decreased LV Systolic Function and Elevated Intracardiac Pressures Procedure(s) Performed Procedure(s) Performed: Coronary Angiography, Left Heart Cath and Right Heart Cath Cna Per Diem Dominick Ortiz MD Fish Drier(s) Nancie Wright Estimated Blood Loss Estimated Blood Loss: <15cc Medication(s) Medication(s): Fentanyl (12.5 mcg IV), Heparin (5000 units IV), Lidocaine 1% (Local infiltration access site), Nicardipine (250 mcg intra-arterial after arterial sheath insertion) and Versed (1 mg IV) Summary of Findings Impression: Large-caliber codominant coronary anatomy Diffuse ectasia with moderate luminal irregularities but no obstructive disease Poorly contractile ventricle on fluoroscopy (LV angiography not performed) Sinus tachycardia Pulmonary hypertension with elevated left heart pressures, narrow pulse pressure consistent with poorly compensated congestive heart failure, marked increase in right heart pressures post coronary angiography Coronary angiography: Left main: Large caliber without disease Left anterior descending: Large caliber type III vessel. It gives rise to a small first diagonal and a large second diagonal in its midportion. The LAD has diffuse ectasia and mild to moderate luminal irregularities with 30% juncture of mid and apical segments Left circumflex: Very large codominant. Gives rise to a large branching obtuse marginal and along the AV groove a large posterior lateral branch and a small posterior lateral branch. The left circumflex has diffuse ectasia with 30% narrowing at the origin of the obtuse marginal Right coronary artery: Codominant moderate in caliber gives rise to a large right ventricular branch in its proximal portion. At the AV groove it gives rise to a small caliber posterior descending artery. Then continues along the AV groove as a very thin caliber vessel. This does supply the AV zahra artery LV angiography: Not performed. Hemodynamics as below with elevated left ventricular end-diastolic pressure 30 or greater Hemodynamics: Moderate pulmonary hypertension in part at least due to elevated left heart pressures with increase in right heart pressures post coronary angiography Cardiac output 4.6 L by thermal dilution, heart rate 95 RA saturation 74%, PA saturation 69%, radial artery saturation 94% room air. Cardiac output by Jose Eduardo equation 5.0, heart rate 100 Hemodynamics Rest Ao:: 113/87/1 Final Ao: 113/85/99 LV: 107/18/28 LVEDP 30 RA: 8 precoronary angiography, 17 post RV: 44/8 pre, 58/13 post PA: 43/30, mean 33 pre-, 51/39, mean 48 post PW: Mean 19 V wave 21 pre-, mean 38 V wave of 40 post Recommendations Recommendations: Medical Therapy and/or Counseling (Patient referred for inpatient management) Specimens Specimens: None Radiation Exposure (mGy) 825 Contrast (mls) 75 Fluids (cc crystalloids) Fluids (cc crystalloids): 63 Anesthesia Start time: 840, stop time 934 Procedural Complication(s) None Disposition Data Steward Holding/Recovery I attest to the content of the Intraoperative Record and any orders documented therein. Any exceptions are noted below. ACC Data: Data Steward Cardiac Status Clinical evaluation leading to the procedure 50-year-old male with newly diagnosed diffuse cardiomyopathy and congestive heart failure referred for right and left heart catheterization due to poor response to medical therapy CAD Presenation: No Sxs, No angina Anginal Classification: No Symptoms Heart Failure: NYHA Class: CCS III Cardiogenic Shock within 24 Hours: No Cardiac Arrest within 24 Hours: No Imaging Studies Past 6 Months: Yes Stress Studies Past 6 Months: No Standard Exercise Test: No Stress Echocardiogram: No Stress Testing w/SPECT MPI: No Cardiac CTA: No Coronary Anatomy Dominant: Co-Dominant Left Main (% Stenosis): Distal (30) D1 (% Stenosis): Normal D2 (% Stenosis): Normal Circumflex (% Stenosis): Normal OM1 (% Stenosis): Ostial (30) L PL1 (% Stenosis): Normal L PL2 (% Stenosis): Normal RCA (% Stenosis): Normal R PDA (% Stenosis): Normal Ramus (% Stenosis): Normal Diagnostic Physicians Name: Dominick Ortiz MD Status: Elective Closure Device Closure Device: Radial Band Recommendations: Medical Therapy and/or Counseling (Patient referred for inpatient management)
[2020-10-05 10:22] LABS: iSTAT Arterial Blood Gas HCO3 30 meg/L (19-24); iSTAT Arterial Blood Gas pCO2 43 mmHg (35-46); iSTAT Arterial Blood Gas pH 7.45 (7.35-7.45); iSTAT Arterial Blood Gas pO2 37 mmHg (80-95); iSTAT Carbon Dioxide 31 mmol/L (24-31)
--- NOTE | 2020-10-05 10:42 | Communication Note ---
Date of Service: October 05, 2020 Patient underwent diagnostic cardiac catheterization right and left heart today. Finding demonstrates no obstructive coronary disease but poorly compensated cardiomyopathy. Patient referred for inpatient management with high risk for further decline
[2020-10-05] MEDS ORDERED: METOPROLOL SUCC 25MG EXT REL TAB PO SCH ×2 (10:45→14:00)
--- NOTE | 2020-10-05 12:25 | Hospitalist Consultation ---
Date of Consultation October 05, 2020 Assessment & Plan (1) Combined systolic and diastolic heart failure: (2) Non-ischemic cardiomyopathy: This is a 50yo M with a PMH of combined systolic and diastolic heart failure, type 2 diabetes, hypertension, history of tobacco use and LEVON on CPAP who p resented for scheduled diagnostic cardiac catheterization right and left heart earlier today by Dr. Ortiz. Recently dx with combined systolic and diastolic heart failure August 2020 with estimated EF 30-34% with global hypokinesis Underwent scheduled diagnostic catheterization today R and L heart - findings demonstrate no obstructive coronary disease but poorly compensated cardiomyopathy In setting of severe LEVON that was recently diagnosed- plan to start CPAP tonight CXR with mild vascular prominence without evidence of overt failure Given 40mg IV Lasix by Dr. Ortiz this afternoon Continue lisinopril, Toprol, statin per cardiology Daily EKG, monitor on tele (3) Diabetes mellitus type 2, uncontrolled: Uncontrolled - recent a1c 11.6 in August 2020 Initial BSG in 380s --> improved to 119 Given 15u SQ Lantus x 1, strict SSI Consulted glycemic mgmt for assistance- will benefit from adjusted OP regimen BSG AC HS (4) History of tobacco use: Recently quit smoking. Nicotine patch ordered (5) LEVON (obstructive sleep apnea): CPAP HS DVT Ppx: SQ Lovenox Code status: FULL PCP: Zeynep Dispo: Observation PCU Patient seen in collaboration with Dr. Heredia. Please see addendum. Supervising Physician Co-Signing Physician Notes patient seen and examined , care co-ordinated with Kate SALDAÑA_C this is a 50 yo m who has been having ongoing shortness of breath , poor exercise tolerance , orthopnea EcHO shows EF 30-35% with global hypokinesis diagnostic cardiac cath showed , non obstructed coronaries non ischemic cardiomyopathy : started on diuresis pt reports improvement of orthopnea poorly controlled type2 DM A1c > 10 hyperglycemia on admission cont basal lantus added insulin [facility] for glycemic management Eboni Heredia MD History of Present Illness Reason for Consultation: DM II and CHF Requesting Physician: Dr. Ortiz Attending Physician: Dominick Ortiz MD History of Present Illness This is a 50yo M with a PMH of combined systolic and diastolic heart failure, type 2 diabetes, hypertension, history of tobacco use and LEVON on CPAP who presented for scheduled diagnostic cardiac catheterization right and left heart earlier today by Dr. Ortiz. Findings demonstrate no obstructive coronary disease but poorly compensated cardiomyopathy. Patient admitted for inpatient management with high risk for further decline. Patient diagnosed with heart failure this past August with reduced EF of 30 to 34% with global hypokinesis. Repeat echo pending. Was transitioned from Lasix to torsemide 20 mg daily in the past few weeks with improved diuresis, per patient. Also with uncontrolled diabetes with recent A1c of 11.6 in August. Feeling well after cardiac cath. Endorsing continued intermittent palpitations. Able to fly flat without shortness of breath. Denies any cough, chest pain. Recently completed sleep study that showed severe LEVON and is due to start CPAP at home soon. Denies any fever, chills, lightheadedness, nausea, vomiting, abdominal pain, dysuria, diarrhea or constipation. Allergies Allergy/AdvReac Type Severity Reaction Status Date / Time No Known Allergies Allergy Unverified 08/27/20 22:24 Home Medications Medication Instructions Recorded Confirmed Type blood sugar diagnostic #10 ea 08/29/20 09/06/20 Rx blood-glucose meter [OneTouch #1 ea 08/29/20 09/06/20 Rx Verio Meter] insulin aspart U-100 [Novolog 1 unit SC ACHS #15 ml 08/29/20 10/05/20 Rx Flexpen U-100 Insulin] lancets #100 ea 08/29/20 09/06/20 Rx lisinopril [Zestril] 5 mg PO QAM #30 tab 08/29/20 10/05/20 Rx aspirin 81 mg PO DAILY 09/06/20 10/05/20 History insulin glargine [Lantus Solostar 35 unit SC HS 09/06/20 10/05/20 History U-100 Insulin] metformin 1,000 mg PO BIDM 09/06/20 10/05/20 History nicotine 14 mg TOPICAL DAILY 09/06/20 10/05/20 History nitroglycerin 0.4 mg BUCCAL UD 09/06/20 10/05/20 History rosuvastatin 20 mg PO DAILY 09/06/20 10/05/20 History semaglutide [Ozempic] 0.25 mg SUBCUT WK 09/06/20 10/05/20 History metoprolol succinate 25 mg PO BID 10/05/20 10/05/20 History torsemide 20 mg PO DAILY 10/05/20 10/05/20 History Patient History Medical History (Updated 10/05/20 @ 16:45 by Kate Royal PA-C) Combined systolic and diastolic heart failure Diabetes mellitus type 2, uncontrolled History of tobacco use Hypertension Non-ischemic cardiomyopathy LEVON (obstructive sleep apnea) Surgical History No pertinent past surgical history Family History Other Cancer Heart disease Lupus Social History Smoking Status: Former smoker Tobacco Type: Cigarettes Second Hand Exposure: No; Hx Alcohol Use: No Hx Substance Use: No Preferred Language: Tajik Communication Ability: Impaired Cement Truck Driver Required: No Beliefs That Will Affect Care: None Current Living Situation: Spouse Other Information That Helps Us Care for You: No Feels Safe at Home: Yes Safety Concerns: Feels Safe At This Time Assistive Devices: Glasses Review of Systems Review of Systems: At least ten systems reviewed and negative except as noted in the HPI. Physical Exam Physical Exam: General Appearance: WD/WN, vitals as above, NAD, sitting up in bed, pleasant, conversing easily Head: normocephalic, atraumatic Eyes: normal inspection, PERRL, conjunctivae normal, anicteric sclerae ENT: external ear and nose normal, oropharynx normal Neck: normal visual inspection, trachea midline, no thyromegaly Respiratory: normal respiratory effort, lungs clear to auscultation, no wheeze, rales, rhonchi. No accessory muscle use Cardiovascular: tachycardic rate, rhythm, no murmur, normal peripheral pulses, no BLE edema. Vessels: no JVD Chest: normal inspection of chest Abdomen/GI: normal bowel sounds, soft, nontender, no hepatosplenomegaly Extremities/Musculoskeletal: no cyanosis or clubbing, extremities motor strength 5/5 Neurologic: PERRL, EOMI, accommodation nl, no face palsy, no dysarthria, CN's II-XI intact bilaterally and moves all extremities Psychiatric: A+Ox3, euthymic affect Skin: no rashes, normal color, warm/dry Results & Data Results & Data ([facility]) Vital Signs (Past 12 Hours) Vital Signs Temp Pulse Resp BP Pulse Ox 10/05/20 11:53 36.6 C 97 H 18 111/78 98 10/05/20 11:27 36.6 C 103 H 18 121/80 98 10/05/20 11:00 102 H 18 145/98 H 96 10/05/20 10:45 98 H 18 153/103 H 96 10/05/20 10:28 106 H 18 121/104 H 98 10/05/20 10:15 88 18 127/88 98 10/05/20 10:00 87 18 138/90 98 10/05/20 09:45 99 H 18 143/101 H 98 10/05/20 07:21 36.9 C 106 H 22 130/88 98 Laboratory Results BMP 10/05/20 13:12 Sodium 135 L Potassium 4.1 Chloride 103 Carbon Dioxide 25 BUN 17 Creatinine 1.04 Glucose 388 H* Calcium 8.9 Diagnostic Findings CXR pending (1) Diabetes mellitus type 2, uncontrolled Glycemic state: with hyperglycemia Qualified Code(s): E11.65 - Type 2 diabetes mellitus with hyperglycemia
[2020-10-05] MEDS ORDERED: GLUCOSE 40% GEL 15 GM TUBE PO PRN (12:27)
[2020-10-05] MEDS ORDERED: GLUCOSE 10 TABS/TUBE PO PRN (12:27)
[2020-10-05] MEDS ORDERED: DEXTROSE 50% 50 ML SYRINGE IV PRN (12:27)
[2020-10-05] MEDS ORDERED: CARBOHYDRATES FOR HYPOGLYCEMIA PO PRN (12:27)
[2020-10-05] MEDS ORDERED: GLUCAGON FOR INJ 1 MG VIAL SQ PRN (12:27)
[2020-10-05] MEDS ORDERED: INSULIN GLARGINE SOLOSTAR 100 UNITS/ML 3 ML PEN SC STA (12:31)
[2020-10-05] MEDS: ENOXAPARIN INJ 40 MG/0.4 ML SYR SQ SCH ×2 (12:45→20:50)
[2020-10-05] MEDS: INSULIN ASPART 100 UNITS/ML 3 ML PEN SC SCH ×3 (13:16→20:51)
[2020-10-05] MEDS ORDERED: POTASSIUM CHLORIDE CRTAB 20 MEQ TABCR PO STA (13:25)
[2020-10-05 14:00] LABS: BUN Creatinine Ratio 16.4 (10-20); Calcium 8.9 mg/dl (8.5-10.1); Creatinine Clr Calc Pharmacy 104.1 ml/min; Est GFR (African American) 95.9 ml/min; Est GFR (Non-African American) 82.7 ml/min; Potassium 4.1 mmol/L (3.5-5.1)
[2020-10-05] MEDS ORDERED: NICOTINE 14 MG/24 HR PATCH TD ONE (14:15)
[2020-10-05 14:17] LABS: Beta-Hydroxybutyrate 1.03 mg/dl (0.2-2.81)
[2020-10-05] MEDS ORDERED: NICOTINE 21 MG/24 HR TDSY TD ONE (14:30)
[2020-10-05] MEDS ORDERED: MAGNESIUM SULFATE / D5W 1 GM/100 ML BAG IV ONE (15:22)
[2020-10-05] MEDS ORDERED: PHARMACY GLYCEMIC MGMT CONSULT SCH (15:32)
[2020-10-05] MEDS ORDERED: FUROSEMIDE 40 MG in SYRINGE 0 ML IV ONE (16:00)
[2020-10-05] MEDS: METOPROLOL SUCC 25MG EXT REL TAB PO SCH ×2 (18:00→20:15)
--- NOTE | 2020-10-05 18:15 | XRay Report ---
XR chest 1V portable CLINICAL HISTORY: Admission chest x-ray COMPARISON STUDY: 09/06/2020 FINDINGS: The heart is at the upper limits of normal in size. There is minor central vascular promine nce without evidence of overt failure. There are no significant pleural effusions. There is no focal pulmonary consolidation. There is a linear opacity at the right lung base, likely representing subseg mental atelectasis[ IMPRESSION: 1. Mild vascular prominence without evidence of overt failure 2. Right basilar subsegmental atelectasis ACT 112: Negative or not required by law. Electronically signed by: Lucho Farris M.D. 10/05/2020 6:13 PM
[2020-10-05] MEDS ORDERED: INSULIN GLARGINE SOLOSTAR 100 UNITS/ML 3 ML PEN SC SCH ×3 (21:00)
[2020-10-05] MEDS ORDERED: lisinopril 5 MG TAB PO SCH (21:00)
[2020-10-06] MEDS ORDERED: INSULIN ASPART 100 UNITS/ML 3 ML PEN SC ONE (02:00)
[2020-10-06 07:20] LABS: Hematocrit (blood only) 43.2 % (42-52); Hemoglobin 15.7 g/dL (14.0-18.0); Mean Corpuscular Hemoglobin 33.1 pg (25-34); Mean Corpuscular Hgb Conc 36.3 g/dL (32-36); Mean Corpuscular Volume 91.1 fL (80-100); Mean Platelet Volume 10.2 fL (7.4-10.4); Platelet Count 217 K/uL (130-400); RDW Coefficient of Variation 12.4 % (11.5-14.5); RDW Standard Deviation 41.8 fL (36.4-46.3); Red Blood Count 4.74 M/uL (4.7-6.1); White Blood Count 9.92 K/uL (4.8-10.8)
[2020-10-06 07:54] LABS: Calcium 8.6 mg/dl (8.5-10.1); Creatinine Clr Calc Pharmacy 125.2 ml/min; Est GFR (African American) 116.4 ml/min; Est GFR (Non-African American) 100.4 ml/min; Potassium 3.5 mmol/L (3.5-5.1)
[2020-10-06] MEDS: INSULIN ASPART 100 UNITS/ML 3 ML PEN SC SCH ×4 (08:29→22:02)
[2020-10-06] MEDS: ASPIRIN 81 MG ECTAB PO SCH (08:30)
[2020-10-06] MEDS: ENOXAPARIN INJ 40 MG/0.4 ML SYR SQ SCH ×2 (08:31→22:02)
[2020-10-06] MEDS: NICOTINE 21 MG/24 HR TDSY TD SCH (08:33)
[2020-10-06] MEDS: ROSUVASTATIN CALCIUM 20 MG TAB PO SCH (08:33)
[2020-10-06] MEDS: lisinopril 2.5 MG TAB PO SCH ×2 (08:44→22:02)
[2020-10-06] MEDS ORDERED: METOPROLOL SUCC 50MG EXT REL TAB PO SCH (09:00)
[2020-10-06] MEDS ORDERED: lisinopril 5 MG TAB PO SCH (09:00)
[2020-10-06] MEDS ORDERED: NICOTINE 14 MG/24 HR PATCH TD SCH (09:00)
[2020-10-06] MEDS ORDERED: ASPIRIN 81 MG ECTAB PO SCH (09:00)
--- NOTE | 2020-10-06 10:06 | Pharmacy Report ---
Pharmacy Glycemic Short Note 2 - Date of Service October 06, 2020 - Glycemic Short BSG Results (Last 24 hours): 10/05/20 10/05/20 10/05/20 11:30 13:12 16:14 Glucose 388 H* POC Glucose 366 H* 98 10/05/20 10/05/20 10/06/20 17:09 20:21 03:11 Glucose POC Glucose 119 H 141 H 185 H 10/06/20 10/06/20 07:07 07:16 Glucose 188 H POC Glucose 183 H OUTPATIENT ANTIDIABETIC REGIMEN: * Lantus 35 units SQ HS * NovoLog with meals per CF = 25, CR = 8 * Metformin 1,000mg PO BIDM * Semaglutide 0.25mg SQ weekly * A1c = 11.6% on 08/28/20 ASSESSMENT: * 50yo T2DM male with suboptimal outpatient control. Goal A1c < 7% based on age/co-morbidities * Severe hyperglycemia on admission resolved with SQ basal bolus insulin dosing regimen. BID Lantus started yesterday - will change back to Q24hrs dosing at HS to be consistent with outpatient regimen. * Hold metformin & semaglutide for inpatient - will titrate NovoLog and Lantus as needed PLAN FOR INPATIENT GLYCEMIC CONTROL: * Hold outpatient oral diabetes medications * Basal insulin * Work dosing back to Q24hrs at HS; Lantus 35 units SQ x 1 dose at lunch today, then dinner tomorrow and HS the following day. Will adjust dosing to achieve fasting BSG < 140 * Bolus insulin * NovoLog per scale ACHS or Q6hrs while NPO * Goal Range: Low 110 mg/dL - High 140 mg/dL * Correction Factor: 15 mg/dL/unit * Nutritional / Prandial insulin per carb ratio of 1 unit per 5 grams CHO consumed PLAN FOR DISCHARGE: * TBD; outpatient regimen will need adjusted to achieve goal A1c < 7%
[2020-10-06] MEDS ORDERED: INSULIN GLARGINE SOLOSTAR 100 UNITS/ML 3 ML PEN SC SCH (12:00)
--- NOTE | 2020-10-06 12:29 | Cardiology Progress Note ---
Date of Service October 06, 2020 Assessment & Plan (1) Non-ischemic cardiomyopathy: Patient underwent cardiac catheterization yesterday for diagnosis of newly observed nonischemic cardiomyopathy with initial presentation in late August 2020. He has marginally compensated congestive heart failure and severe overall LV dysfunction. Ultimately will be optimal medical regimen and close clinical follow-up. With admission will titrate beta-elizabeth to tolerance and heart rate control. Resume oral torsemide and add spironolactone and magnesium supplement Telemetry today demonstrated short run of nonsustained ventricular tachycardia rate 200 bpm. We will anticipate discharge with LifeVest Discussed all findings in detail with the patient. Future management goals include improved LV systolic function through medical therapies, treatment of obstructive sleep apnea as well as other cardiac vascular risk factors and. Have recommended disability and avoiding strenuous activities and work for initial management until better compensated. LifeVest planned on discharge and if no improvement in LV systolic function 3 months consideration for prophylactic defibrillator. Also discussed long-term management issue should heart function failed to improve. (2) Nonsustained ventricular tachycardia: (3) Combined systolic and diastolic heart failure: (4) LEVON (obstructive sleep apnea): (5) Diabetes mellitus type 2, uncontrolled: Admission and Anticipated Discharge Date Admission Date: October 05, 2020 Subjective Patient was seen and examined, chart, medications, telemetry reviewed. No acute chest pains but has had leg cramping last night. No dizziness or lightheadedness. Was aware of palpitations this morning with telemetry reflecting short run of nonsustained ventricular tachycardia. Heart rate is trending towards better control. Patient did tolerate BiPAP last night and was able to sleep with device in place Review of Systems Review of Systems: All systems reviewed & are unremarkable except as noted in HPI & below Physical Exam 2 Constitutional: WD/WN, vitals as above Eyes: PERRL, conjunctivae normal, anicteric sclerae ENMT: external ear and nose normal, oropharynx normal Neck: trachea midline, no thyromegaly Respiratory: normal respiratory effort, lungs clear to auscultation Cardiovascular: Rate/Rhythm: regular rate and regular rhythm Heart Sounds: normal S1 and normal S2; no gallop and no murmur Palpation: normal PMI and + heave Vessels: normal carotid upstroke and radial pulses present (Radial access site healing); no JVD and no carotid bruit Extremities: + edema (Trace) Gastrointestinal (Abdomen): normal bowel sounds, soft, nontender, no hepatosplenomegaly Musculoskeletal: no cyanosis or clubbing, extremities motor strength 5/5 Skin: no rashes, warm and dry Neurologic: PERRL, EOMI, accommodation nl, no face palsy, no dysarthria Psychiatric: A+Ox3, euthymic affect Results & Data ([place]) Vital Signs (Past 12 Hours) Vital Signs Temp Pulse Pulse Resp BP Pulse Ox 10/06/20 11:31 37.1 C 89 18 110/80 100 10/06/20 08:00 91 H 10/06/20 07:23 36.5 C 86 17 95/66 L 96 10/06/20 03:31 36.5 C 85 20 106/71 99 10/06/20 03:24 89 18 99 Laboratory Results Laboratory Results - last 24 hr 10/05/20 10/05/20 10/05/20 13:12 13:48 13:48 WBC RBC Hgb Hct MCV MCH MCHC RDW Std Deviation RDW Coeff of Airam Plt Count MPV Sodium 135 L Potassium 4.1 Chloride 103 Carbon Dioxide 25 Anion Gap 7.0 BUN 17 Creatinine 1.04 Est Cr Clr Drug Dosing 104.1 Est GFR ( Amer) 95.9 Est GFR (Non-Af Amer) 82.7 BUN/Creatinine Ratio 16.4 Glucose 388 H* POC Glucose Calcium 8.9 Magnesium 1.7 L NT-Pro-B Natriuret Pep 760 Beta-Hydroxybutyric Acd 1.03 10/05/20 10/05/20 10/05/20 16:14 17:09 20:21 WBC RBC Hgb Hct MCV MCH MCHC RDW Std Deviation RDW Coeff of Airam Plt Count MPV Sodium Potassium Chloride Carbon Dioxide Anion Gap BUN Creatinine Est Cr Clr Drug Dosing Est GFR ( Amer) Est GFR (Non-Af Amer) BUN/Creatinine Ratio Glucose POC Glucose 98 119 H 141 H Calcium Magnesium NT-Pro-B Natriuret Pep Beta-Hydroxybutyric Acd 10/06/20 10/06/20 10/06/20 03:11 07:07 07:07 WBC 9.92 RBC 4.74 Hgb 15.7 Hct 43.2 MCV 91.1 MCH 33.1 MCHC 36.3 H RDW Std Deviation 41.8 RDW Coeff of Airam 12.4 Plt Count 217 MPV 10.2 Sodium 137 Potassium 3.5 Chloride 105 Carbon Dioxide 24 Anion Gap 8.0 BUN 20 H Creatinine 0.86 Est Cr Clr Drug Dosing 125.2 Est GFR ( Amer) 116.4 Est GFR (Non-Af Amer) 100.4 BUN/Creatinine Ratio 23.0 H Glucose 188 H POC Glucose 185 H Calcium 8.6 Magnesium NT-Pro-B Natriuret Pep Beta-Hydroxybutyric Acd 10/06/20 10/06/20 07:16 11:25 WBC RBC Hgb Hct MCV MCH MCHC RDW Std Deviation RDW Coeff of Airam Plt Count MPV Sodium Potassium Chloride Carbon Dioxide Anion Gap BUN Creatinine Est Cr Clr Drug Dosing Est GFR ( Amer) Est GFR (Non-Af Amer) BUN/Creatinine Ratio Glucose POC Glucose 183 H 232 H Calcium Magnesium NT-Pro-B Natriuret Pep Beta-Hydroxybutyric Acd (1) Diabetes mellitus type 2, uncontrolled Glycemic state: with hyperglycemia Qualified Code(s): E11.65 - Type 2 diabetes mellitus with hyperglycemia
[2020-10-06] MEDS: SPIRONOLACTONE 12.5 MG TAB PO SCH (14:22)
[2020-10-06] MEDS: MAGNESIUM OXIDE 400 MG TAB PO SCH (14:22)
[2020-10-06] MEDS: TORSEMIDE 10 MG TAB PO SCH (14:22)
[2020-10-06] MEDS: METOPROLOL SUCC 25MG EXT REL TAB PO SCH (18:07)
--- NOTE | 2020-10-06 18:19 | Hospitalist Progress Note ---
Date of Service October 06, 2020 Assessment & Plan (1) Combined systolic and diastolic heart failure: (2) Non-ischemic cardiomyopathy: Patient is a 50 yr male with H/O combined systolic and diastolic heart failure, type 2 diabetes, hypertension, history of tobacco use and LEVON on CPAP who pre sented for scheduled diagnostic cardiac catheterization right and left heart by Dr. Ortiz. Acute on chronic systolic, diastolic heart failure Nonischemic cardiomyopathy NSVT Recently dx with combined systolic and diastolic heart failure August 2020 with estimated EF 30-34% with global hypokinesis -CXR:Mild vascular prominence without evidence of overt failure. Right basilar subsegmental atelectasis -Cardiac Cath:Large-caliber codominant coronary anatomy. Diffuse ectasia with moderate luminal irregularities but no obstructive disease. Poorly contractile ventricle on fluoroscopy (LV angiography not performed). Sinus tachycardia. Pulmonary hypertension with elevated left heart pressures, narrow pulse pressure consistent with poorly compensated congestive heart failure, marked increase in right heart pressures post coronary angiography -ECHO: Left ventricle is mildly dilated. Normal left ventricle wall thickness. Severe global hypokinesis of left ventricle. EF 20 to 25%. Mild to moderate mitral regurgitation. Mild tricuspid regurgitation. Right ventricle systolic pressure is elevated at 40 to 50 mmHg -Received IV Lasix -Started on torsemide, Aldactone Continue metoprolol, lisinopril Appreciate cardiology input Needs LifeVest arranged prior to discharge Monitor I's and O's, daily weight (3) Diabetes mellitus type 2, uncontrolled: Uncontrolled - recent a1c 11.6 in August 2020 Initial BSG in 380s on presentation Continue Insulin therapy Consulted glycemic mgmt Monitor blood glucose levels Hypomagnesemia Replace electrolytes as needed Monitor (4) History of tobacco use: Recently quit smoking. Nicotine patch (5) LEVON (obstructive sleep apnea): CPAP HS DVT Px: SQ Lovenox Code status: FULL CODE Admission and Anticipated Discharge Date Admission Date: October 05, 2020 Subjective Patient is seen and examined at bedside States feeling very tired Reports intermittent palpitations, dyspnea Discussed with cardiology today Also reports left leg cramping Offers no other complaints Patient had a short run of nonsustained ventricular tachycardia Review of Systems Review of Systems: All systems reviewed & are unremarkable except as noted in HPI & below Physical Exam Physical Exam: Physical Exam: Vitals signs as noted above General Appearance:Moderately built and nourished, no apparent distress Head: normocephalic, Atraumatic Eyes: normal inspection, EOMI Neck: supple, Trachea midline Respiratory/Chest: Normal breath sounds, CTA, No accessory muscle use Cardiovascular: S1, S2, No murmur Abdomen/GI:Soft, Non tender, Bowel sounds present Extremities/Musculoskeletal:normal inspection, Trace edema Neurologic/Psych:AAOX3, grossly no focal neurological deficits Skin: normal color, warm Results & Data Results & Data ([facility]) Vital Signs (Past 12 Hours) Vital Signs Temp Pulse Pulse Resp BP Pulse Ox Pulse Ox 10/06/20 15:37 93 H 10/06/20 15:23 36.9 C 89 18 114/77 99 10/06/20 11:31 37.1 C 89 18 110/80 100 10/06/20 10:28 97 10/06/20 08:00 91 H 10/06/20 07:23 36.5 C 86 17 95/66 L 96 Laboratory Results Short CBC 10/06/20 Range/Units 07:07 WBC 9.92 (4.8-10.8) K/uL Hgb 15.7 (14.0-18.0) g/dL Hct 43.2 (42-52) % Plt Count 217 (130-400) K/uL BMP 10/06/20 07:07 Sodium 137 Potassium 3.5 Chloride 105 Carbon Dioxide 24 BUN 20 H Creatinine 0.86 Glucose 188 H Calcium 8.6 (1) Diabetes mellitus type 2, uncontrolled Glycemic state: with hyperglycemia Qualified Code(s): E11.65 - Type 2 diabetes mellitus with hyperglycemia
[2020-10-06] MEDS ORDERED: INSULIN GLARGINE SOLOSTAR 100 UNITS/ML 3 ML PEN SC ONE ×2 (21:00)
[2020-10-07] MEDS ORDERED: POTASSIUM CHLORIDE CRTAB 20 MEQ TABCR PO STA ×2 (00:47→02:21)
[2020-10-07] MEDS ORDERED: MAGNESIUM SULFATE / D5W 1 GM/100 ML BAG IV ONE (01:00)
[2020-10-07 01:38] LABS: Basophils # (auto) 0.02 K/uL (0-0.2); Basophils % (auto) 0.2 %; Eosinophils % (auto) 2.9 %; Hematocrit (blood only) 43.1 % (42-52); Hemoglobin 15.8 g/dL (14.0-18.0); Immature Granulocytes # (auto) 0.05 K/uL (0.00-0.02); Immature Granulocytes % (auto) 0.5 %; Lymphocytes # (auto) 3.22 K/uL (1.2-3.4); Lymphocytes % (auto) 31.6 %; Mean Corpuscular Hemoglobin 33.3 pg (25-34); Mean Corpuscular Hgb Conc 36.7 g/dL (32-36); Mean Corpuscular Volume 90.9 fL (80-100); Mean Platelet Volume 10.3 fL (7.4-10.4); Monocytes # (auto) 0.76 K/uL (0.11-0.59); Monocytes % (auto) 7.5 %; Neutrophils # (auto) 5.85 K/uL (1.4-6.5); Neutrophils % (auto) 57.3 %; Platelet Count 217 K/uL (130-400); RDW Coefficient of Variation 12.5 % (11.5-14.5); RDW Standard Deviation 41.6 fL (36.4-46.3); Red Blood Count 4.74 M/uL (4.7-6.1)
[2020-10-07 02:03] LABS: BUN Creatinine Ratio 23.5 (10-20); Calcium 8.5 mg/dl (8.5-10.1); Creatinine Clr Calc Pharmacy 112.1 ml/min; Est GFR (African American) 105.6 ml/min; Est GFR (Non-African American) 91.2 ml/min; Magnesium 1.9 mg/dl (1.8-2.4); Potassium 3.4 mmol/L (3.5-5.1)
[2020-10-07] MEDS: INSULIN ASPART 100 UNITS/ML 3 ML PEN SC SCH ×4 (08:09→20:50)
[2020-10-07] MEDS: ENOXAPARIN INJ 40 MG/0.4 ML SYR SQ SCH ×2 (09:06→20:50)
[2020-10-07] MEDS: POTASSIUM CHLORIDE CRTAB 20 MEQ TABCR PO SCH ×2 (09:06→17:39)
[2020-10-07] MEDS: ROSUVASTATIN CALCIUM 20 MG TAB PO SCH (09:06)
[2020-10-07] MEDS: MAGNESIUM OXIDE 400 MG TAB PO SCH (09:06)
[2020-10-07] MEDS: NICOTINE 21 MG/24 HR TDSY TD SCH (09:07)
[2020-10-07] MEDS: ASPIRIN 81 MG ECTAB PO SCH (09:07)
[2020-10-07] MEDS: lisinopril 2.5 MG TAB PO SCH (10:44)
[2020-10-07] MEDS ORDERED: METOPROLOL SUCC 50MG EXT REL TAB PO SCH (10:45)
[2020-10-07] MEDS: METOPROLOL SUCC 25MG EXT REL TAB PO SCH ×2 (10:48→17:04)
[2020-10-07] MEDS: TORSEMIDE 10 MG TAB PO SCH (10:57)
[2020-10-07] MEDS: SPIRONOLACTONE 12.5 MG TAB PO SCH (10:58)
--- NOTE | 2020-10-07 11:06 | Pharmacy Report ---
Pharmacy Glycemic Short Note 2 - Date of Service October 07, 2020 - Glycemic Short BSG Results (Last 24 hours): 10/06/20 10/06/20 10/06/20 11:25 16:12 20:53 Glucose POC Glucose 232 H 116 H 125 H 10/07/20 10/07/20 01:17 07:28 Glucose 133 H POC Glucose 170 H OUTPATIENT ANTIDIABETIC REGIMEN: * Lantus 35 units SQ HS * NovoLog with meals per CF = 25, CR = 8 * Metformin 1,000mg PO BIDM * Semaglutide 0.25mg SQ weekly * A1c = 11.6% on 08/28/20 ASSESSMENT: 10/07 * Pt has received 81 units of insulin over the past 24hrs * 35 units of basal with Lantus * 46 units of bolus with NovoLog * BSGs [phone] mg/dl * BSGs trending downwards with changes made yesterday. No changes needed today 10/06 * 50yo T2DM male with suboptimal outpatient control. Goal A1c < 7% based on age/co-morbidities * Severe hyperglycemia on admission resolved with SQ basal bolus insulin dosing regimen. BID Lantus started yesterday - will change back to Q24hrs dosing at HS to be consistent with outpatient regimen. * Hold metformin & semaglutide for inpatient - will titrate NovoLog and Lantus as needed PLAN FOR INPATIENT GLYCEMIC CONTROL: * Hold outpatient oral diabetes medications * Basal insulin * Work dosing back to Q24hrs at HS; Lantus 35 units SQ x 1 dose at dinner today and HS the following day. Will adjust dosing to achieve fasting BSG < 140 * Bolus insulin * NovoLog per scale ACHS or Q6hrs while NPO * Goal Range: Low 110 mg/dL - High 140 mg/dL * Correction Factor: 15 mg/dL/unit * Nutritional / Prandial insulin per carb ratio of 1 unit per 5 grams CHO co nsumed PLAN FOR DISCHARGE: * A1c in August ws 11.6%. At this time insulin and GLP1 were added. Pt is to increase his GLP1 semiglutide dosing this Sunday. Will re-order an A1c; likely A1c has improved with these changes. No changes needed at dc- patient is working with outpatient provider.
[2020-10-07 11:30] LABS: Estimated Average Glucose 260 mg/dl; Hemoglobin A1C 10.7 % (4.5-5.6)
--- NOTE | 2020-10-07 12:26 | Cardiology Progress Note ---
Date of Service October 07, 2020 Assessment & Plan (1) Non-ischemic cardiomyopathy: Patient underwent cardiac catheterization yesterday for diagnosis of newly observed nonischemic cardiomyopathy with initial presentation in late August 2020. He has marginally compensated congestive heart failure and severe overall LV dysfunction. Ultimately will be optimal medical regimen and close clinical follow-up. With admission will titrate beta-elizabeth to tolerance and heart rate control. Resume oral torsemide and add spironolactone and magnesium supplement Telemetry today demonstrated short run of nonsustained ventricular tachycardia rate 200 bpm. We will anticipate discharge with LifeVest Discussed all findings in detail with the patient. Future management goals include improved LV systolic function through medical therapies, treatment of obstructive sleep apnea as well as other cardiac vascular risk factors and. Have recommended disability and avoiding strenuous activities and work for initial management until better compensated. LifeVest planned on discharge and if no improvement in LV systolic function 3 months consideration for prophylactic defibrillator. Also discussed long-term management issue should heart function failed to improve. 10/07/2020 Plan given arrhythmias hypokalemia and hypotension this morning we will admit for further management. Metoprolol succinate 50 mg this morning then resume 75 mg twice per day Potassium supplemented we will continue spironolactone Change lisinopril to 2.5 mg at 1700 (2) Nonsustained ventricular tachycardia: (3) Combined systolic and diastolic heart failure: (4) LEVON (obstructive sleep apnea): Will need device ordered for home on discharge (5) Diabetes mellitus type 2, uncontrolled: Admission and Anticipated Discharge Date Admission Date: October 05, 2020 Subjective Patient was seen and examined, chart, medications, telemetry reviewed. Mild breathlessness last night, lightheaded and low blood pressure this morning. Telemetry demonstrated 2 short runs of nonsustained ventricular tachycardia last night No sustained arrhythmias No worsening edema Physical Exam Constitutional: WD/WN, vitals as above Eyes: PERRL, conjunctivae normal, anicteric sclerae ENMT: Mallampati Class: I Neck: trachea midline, no thyromegaly Respiratory: normal respiratory effort, lungs clear to auscultation Cardiovascular: RRR, no murmur, no edema Rate/Rhythm: regular rate, regular rhythm and + tachycardic Heart Sounds: normal S1 and normal S2; no gallop and no murmur Palpation: normal PMI and + heave Vessels: normal carotid upstroke and radial pulses present (Radial access site healing); no JVD and no carotid bruit Extremities: + edema (Trace) Gastrointestinal (Abdomen): normal bowel sounds, soft, nontender, no hepatosplenomegaly Musculoskeletal: no cyanosis or clubbing, extremities motor strength 5/5 Skin: no rashes, warm and dry Neurologic: PERRL, EOMI, accommodation nl, no face palsy, no dysarthria Psychiatric: A+Ox3, euthymic affect Results & Data ([facility]) Vital Signs (Past 12 Hours) Vital Signs Temp Pulse Pulse Resp BP BP Pulse Ox 10/07/20 11:47 36.7 C 95 H 18 107/76 97 10/07/20 10:00 10/07/20 09:00 97 H 92/60 L 10/07/20 07:27 36.6 C 96 H 17 91/60 L 99 10/07/20 07:00 91 H 10/07/20 03:53 36.6 C 93 H 16 109/73 92 10/07/20 01:23 85 111/72 Pulse Ox 10/07/20 11:47 10/07/20 10:00 95 10/07/20 09:00 10/07/20 07:27 10/07/20 07:00 10/07/20 03:53 10/07/20 01:23 Laboratory Results Laboratory Results - last 24 hr 10/06/20 10/06/20 10/07/20 16:12 20:53 01:17 WBC 10.20 RBC 4.74 Hgb 15.8 Hct 43.1 MCV 90.9 MCH 33.3 MCHC 36.7 H RDW Std Deviation 41.6 RDW Coeff of Airam 12.5 Plt Count 217 MPV 10.3 Immature Gran % (Auto) 0.5 Neut % (Auto) 57.3 Lymph % (Auto) 31.6 [place] % (Auto) 7.5 Eos % (Auto) 2.9 Baso % (Auto) 0.2 Neut # (Auto) 5.85 Lymph # (Auto) 3.22 [place] # (Auto) 0.76 H Eos # (Auto) 0.30 Baso # (Auto) 0.02 Immature Gran # (Auto) 0.05 H Sodium Potassium Chloride Carbon Dioxide Anion Gap BUN Creatinine Est Cr Clr Drug Dosing Est GFR ( Amer) Est GFR (Non-Af Amer) BUN/Creatinine Ratio Glucose POC Glucose 116 H 125 H Estimat Average Glucose Hemoglobin A1c Calcium Magnesium 10/07/20 10/07/20 10/07/20 01:17 01:17 07:28 WBC RBC Hgb Hct MCV MCH MCHC RDW Std Deviation RDW Coeff of Airam Plt Count MPV Immature Gran % (Auto) Neut % (Auto) Lymph % (Auto) [place] % (Auto) Eos % (Auto) Baso % (Auto) Neut # (Auto) Lymph # (Auto) [place] # (Auto) Eos # (Auto) Baso # (Auto) Immature Gran # (Auto) Sodium 137 Potassium 3.4 L Chloride 105 Carbon Dioxide 27 Anion Gap 5.0 BUN 23 H Creatinine 0.96 Est Cr Clr Drug Dosing 112.1 Est GFR ( Amer) 105.6 Est GFR (Non-Af Amer) 91.2 BUN/Creatinine Ratio 23.5 H Glucose 133 H POC Glucose 170 H Estimat Average Glucose 260 Hemoglobin A1c 10.7 H Calcium 8.5 Magnesium 1.9 10/07/20 11:43 WBC RBC Hgb Hct MCV MCH MCHC RDW Std Deviation RDW Coeff of Airam Plt Count MPV Immature Gran % (Auto) Neut % (Auto) Lymph % (Auto) [place] % (Auto) Eos % (Auto) Baso % (Auto) Neut # (Auto) Lymph # (Auto) [place] # (Auto) Eos # (Auto) Baso # (Auto) Immature Gran # (Auto) Sodium Potassium Chloride Carbon Dioxide Anion Gap BUN Creatinine Est Cr Clr Drug Dosing Est GFR ( Amer) Est GFR (Non-Af Amer) BUN/Creatinine Ratio Glucose POC Glucose 217 H Estimat Average Glucose Hemoglobin A1c Calcium Magnesium (1) Diabetes mellitus type 2, uncontrolled Glycemic state: with hyperglycemia Qualified Code(s): E11.65 - Type 2 diabe elda mellitus with hyperglycemia
--- NOTE | 2020-10-07 14:48 | Electrocardiogram Report ---
Test Reason : Blood Pressure : / mmHG Vent. Rate : 092 BPM Atrial Rate : 092 BPM P-R Int : 140 ms QRS Dur : 078 ms QT Int : 368 ms P-R-T Axes : 068 -28 099 degrees QTc Int : 455 ms Normal sinus rhythm Inferior infarct , age undetermined Abnormal ECG When compared with ECG of 06-OCT-2020 05:30, (unconfirmed) Inferior infarct is now Present Confirmed by Jairo Neumann ([id number]) on 10/07/2020 2:48:23 PM Referred By: Yaritza Zaragoza Confirmed By:Jairo Neumann
--- NOTE | 2020-10-07 16:12 | Hospitalist Progress Note ---
Date of Service October 07, 2020 Assessment & Plan (1) Combined systolic and diastolic heart failure: (2) Non-ischemic cardiomyopathy: Patient is a 50 yr male with H/O combined systolic and diastolic heart failure, type 2 diabetes, hypertension, history of tobacco use and LEVON on CPAP who pres ented for scheduled diagnostic cardiac catheterization right and left heart by Dr. Ortiz. Acute on chronic systolic, diastolic heart failure Nonischemic cardiomyopathy NSVT Recently dx with combined systolic and diastolic heart failure August 2020 with estimated EF 30-34% with global hypokinesis -CXR:Mild vascular prominence without evidence of overt failure. Right basilar subsegmental atelectasis -Cardiac Cath:Large-caliber codominant coronary anatomy. Diffuse ectasia with moderate luminal irregularities but no obstructive disease. Poorly contractile ventricle on fluoroscopy (LV angiography not performed). Sinus tachycardia. Pulmonary hypertension with elevated left heart pressures, narrow pulse pressure consistent with poorly compensated congestive heart failure, marked increase in right heart pressures post coronary angiography -ECHO: Left ventricle is mildly dilated. Normal left ventricle wall thickness. Severe global hypokinesis of left ventricle. EF 20 to 25%. Mild to moderate mitral regurgitation. Mild tricuspid regurgitation. Right ventricle systolic pressure is elevated at 40 to 50 mmHg -Received IV Lasix -Continue torsemide, Aldactone Continue metoprolol, lisinopril Lisinopril dose decreased to 2.5 mg daily Appreciate cardiology input Needs LifeVest arranged prior to discharge Monitor I's and O's, daily weight Replace and monitor electrolytes as needed (3) Diabetes mellitus type 2, uncontrolled: Uncontrolled - recent a1c 11.6 in August 2020 Initial BSG in 380s on presentation Continue Insulin therapy Consulted glycemic mgmt Monitor blood glucose levels Hypomagnesemia Replace electrolytes as needed Monitor (4) History of tobacco use: Recently quit smoking. Nicotine patch (5) LEVON (obstructive sleep apnea): CPAP HS DVT Px: SQ Lovenox Code status: FULL CODE Admission and Anticipated Discharge Date Admission Date: October 07, 2020 Subjective Patient is seen and examined at bedside States feeling dizzy today Persistent intermittent palpitations associated with dyspnea Had 2 transient runs of NSVT overnight Review of Systems Review of Systems: All systems reviewed & are unremarkable except as noted in HPI & below Physical Exam Physical Exam: Physical Exam: Vitals signs as noted above General Appearance:Moderately built and nourished, no apparent distress Head: normocephalic, Atraumatic Eyes: normal inspection, EOMI Neck: supple, Trachea midline Respiratory/Chest: Normal breath sounds, CTA, No accessory muscle use Cardiovascular: S1, S2, No murmur Abdomen/GI:Soft, Non tender, Bowel sounds present Extremities/Musculoskeletal:normal inspection, Trace edema Neurologic/Psych:AAOX3, grossly no focal neurological deficits Skin: normal color, warm Results & Data Results & Data ([facility]) Vital Signs (Past 12 Hours) Vital Signs Temp Pulse Pulse Resp BP BP Pulse Ox 10/07/20 14:46 93 H 19 122/88 98 10/07/20 11:47 36.7 C 95 H 18 107/76 97 10/07/20 10:00 10/07/20 09:00 97 H 92/60 L 10/07/20 07:27 36.6 C 96 H 17 91/60 L 99 10/07/20 07:00 91 H Pulse Ox 10/07/20 14:46 10/07/20 11:47 10/07/20 10:00 95 10/07/20 09:00 10/07/20 07:27 10/07/20 07:00 Laboratory Results Short CBC 10/07/20 Range/Units 01:17 WBC 10.20 (4.8-10.8) K/uL Hgb 15.8 (14.0-18.0) g/dL Hct 43.1 (42-52) % Plt Count 217 (130-400) K/uL BMP 10/07/20 01:17 Sodium 137 Potassium 3.4 L Chloride 105 Carbon Dioxide 27 BUN 23 H Creatinine 0.96 Glucose 133 H Calcium 8.5 (1) Diabetes mellitus type 2, uncontrolled Glycemic state: with hyperglycemia Qualified Code(s): E11.65 - Type 2 diabetes mellitus with hyperglycemia
[2020-10-07] MEDS ORDERED: INSULIN GLARGINE SOLOSTAR 100 UNITS/ML 3 ML PEN SC SCH (16:30)
[2020-10-07] MEDS ORDERED: lisinopril 2.5 MG TAB PO SCH (17:00)
[2020-10-08] MEDS ORDERED: PHENAZOPYRIDINE HCL 100 MG TAB PO STA (03:26)
[2020-10-08] MEDS ORDERED: traMADol HCL 50 MG TABLET PO PRN (03:27)
[2020-10-08 06:58] LABS: BUN Creatinine Ratio 21.3 (10-20); Calcium 8.6 mg/dl (8.5-10.1); Creatinine Clr Calc Pharmacy 94.9 ml/min; Est GFR (African American) 85.8 ml/min; Est GFR (Non-African American) 74.1 ml/min; Magnesium 2.1 mg/dl (1.8-2.4); Potassium 3.8 mmol/L (3.5-5.1)
[2020-10-08] MEDS: INSULIN ASPART 100 UNITS/ML 3 ML PEN SC SCH ×4 (08:30→11:52)
[2020-10-08] MEDS: NICOTINE 21 MG/24 HR TDSY TD SCH (08:37)
[2020-10-08] MEDS: METOPROLOL SUCC 25MG EXT REL TAB PO SCH (08:38)
[2020-10-08] MEDS: ENOXAPARIN INJ 40 MG/0.4 ML SYR SQ SCH (08:39)
[2020-10-08] MEDS: SPIRONOLACTONE 12.5 MG TAB PO SCH (08:40)
[2020-10-08] MEDS: ROSUVASTATIN CALCIUM 20 MG TAB PO SCH (08:40)
[2020-10-08] MEDS: POTASSIUM CHLORIDE CRTAB 20 MEQ TABCR PO SCH (08:40)
[2020-10-08] MEDS: TORSEMIDE 10 MG TAB PO SCH (08:40)
[2020-10-08] MEDS: ASPIRIN 81 MG ECTAB PO SCH (08:41)
[2020-10-08] MEDS: MAGNESIUM OXIDE 400 MG TAB PO SCH (08:41)
[2020-10-08 09:55] LABS: Appearance Urine Clear (Clear); Bacteria Urine Automated Negative (Negative); Bilirubin Urine Negative (Negative); Blood Urine Negative (Negative); Cast Urine Automated 0 /lpf (0-5); Color Urine Dark Yellow; Epithelial Cell Urine Auto 0-5 /lpf (0-5); Glucose Urine UA Negative (Negative); Ketones Urine Negative (Negative); Leukocyte Esterase Urine Negative (Negative); Nitrite Urine Positive (Negative); Protein Urine Negative (Negative); RBC Urine Automated 0-4 /hpf (0-4); Urobilinogen Urine Negative (Negative); WBC Urine Automated 0 /hpf (0-5); pH Urine 5.5 (4.5-7.5)
[2020-10-08] MEDS ORDERED: SPIRONOLACTONE 12.5 MG TAB PO ONE (10:08)
--- NOTE | 2020-10-08 10:21 | Cardiology Progress Note ---
Date of Service October 08, 2020 Assessment & Plan (1) Non-ischemic cardiomyopathy: Patient underwent cardiac catheterization yesterday for diagnosis of newly observed nonischemic cardiomyopathy with initial presentation in late August 2020. He has marginally compensated congestive heart failure and severe overall LV dysfunction. Ultimately will be optimal medical regimen and close clinical follow-up. With admission will titrate beta-elizabeth to tolerance and heart rate control. Resume oral torsemide and add spironolactone and magnesium supplement Telemetry today demonstrated short run of nonsustained ventricular tachycardia rate 200 bpm. We will anticipate discharge with LifeVest Discussed all findings in detail with the patient. Future management goals include improved LV systolic function through medical therapies, treatment of obstructive sleep apnea as well as other cardiac vascular risk factors and. Have recommended disability and avoiding strenuous activities and work for initial management until better compensated. LifeVest planned on discharge and if no improvement in LV systolic function 3 months consideration for prophylactic defibrillator. Also discussed long-term management issue should heart function failed to improve. 10/07/2020 Plan given arrhythmias hypokalemia and hypotension this morning we will admit for further management. Metoprolol succinate 50 mg this morning then resume 75 mg twice per day Potassium supplemented we will continue spironolactone Change lisinopril to 2.5 mg at 1700 Patient 10/08/2020 stable for discharge. Cardiac medications to include: Metoprolol succinate 75 mg twice per day Lisinopril 2.5 mg with evening meal Torsemide 20 mg p.o. daily Spironolactone 25 mg p.o. daily Rosuvastatin 20 mg p.o. daily Aspirin 81 mg p.o. daily CHF instructions given Appointment arranged with cardiology in 1 week's time Paperwork to be placed for short-term disability/FLMA (2) Nonsustained ventricular tachycardia: No further arrhythmias overnight, LifeVest in place (3) Combined systolic and diastolic heart failure: (4) LEVON (obstructive sleep apnea): BiPAP scheduled to be delivered (5) Diabetes mellitus type 2, uncontrolled: Admission and Anticipated Discharge Date Admission Date: October 07, 2020 Subjective Patient was seen and examined, chart, medications, telemetry reviewed. No cardiac complaints overnight no arrhythmias other than rare ventricular ectopy. Weight stable. No worsening dyspnea, dizziness or lightheadedness. Patient trained and he is wearing LifeVest currently Review of Systems Review of Systems: All systems reviewed & are unremarkable except as noted in Subjective Physical Exam Constitutional: WD/WN, vitals as above Eyes: PERRL, conjunctivae normal, anicteric sclerae ENMT: Mallampati Class: I Neck: trachea midline, no thyromegaly Respiratory: normal respiratory effort, lungs clear to auscultation Cardiovascular: RRR, no murmur, no edema Rate/Rhythm: regular rate, regular rhythm and + tachycardic Heart Sounds: normal S1 and normal S2; no gallop and no murmur Palpation: normal PMI and + heave Vessels: normal carotid upstroke and radial pulses present (Radial access site healing); no JVD and no carotid bruit Extremities: + edema (Trace) Gastrointestinal (Abdomen): normal bowel sounds, soft, nontender, no hepatosplenomegaly Musculoskeletal: no cyanosis or clubbing, extremities motor strength 5/5 Skin: no rashes, warm and dry Neurologic: PERRL, EOMI, accommodation nl, no face palsy, no dysarthria Psychiatric: A+Ox3, euthymic affect Results & Data ([facility]) Vital Signs (Past 12 Hours) Vital Signs Temp Pulse Pulse Resp BP Pulse Ox 10/08/20 08:20 36.9 C 89 19 108/77 94 10/08/20 04:05 36.6 C 86 18 103/72 96 10/07/20 23:42 74 (1) Diabetes mellitus type 2, uncontrolled Glycemic state: with hyperglycemia Qualified Code(s): E11.65 - Type 2 diabetes mellitus with hyperglycemia
--- NOTE | 2020-10-08 11:52 | Hospitalist Progress Note ---
Date of Service October 08, 2020 Assessment & Plan (1) Combined systolic and diastolic heart failure: (2) Non-ischemic cardiomyopathy: Patient is a 50 yr male with H/O combined systolic and diastolic heart failure, type 2 diabetes, hypertension, history of tobacco use and LEVON on CPAP who pres ented for scheduled diagnostic cardiac catheterization right and left heart by Dr. Ortiz. Acute on chronic systolic, diastolic heart failure Nonischemic cardiomyopathy NSVT Recently dx with combined systolic and diastolic heart failure August 2020 with estimated EF 30-34% with global hypokinesis -CXR:Mild vascular prominence without evidence of overt failure. Right basilar subsegmental atelectasis -Cardiac Cath:Large-caliber codominant coronary anatomy. Diffuse ectasia with moderate luminal irregularities but no obstructive disease. Poorly contractile ventricle on fluoroscopy (LV angiography not performed). Sinus tachycardia. Pulmonary hypertension with elevated left heart pressures, narrow pulse pressure consistent with poorly compensated congestive heart failure, marked increase in right heart pressures post coronary angiography -ECHO: Left ventricle is mildly dilated. Normal left ventricle wall thickness. Severe global hypokinesis of left ventricle. EF 20 to 25%. Mild to moderate mitral regurgitation. Mild tricuspid regurgitation. Right ventricle systolic pressure is elevated at 40 to 50 mmHg -Received IV Lasix -Continue torsemide 20mg daily, Aldactone 25mg daily Continue metoprolol 75mg BID, lisinopril 2.5mg PM daily Lisinopril dose decreased to 2.5 mg daily Appreciate cardiology input LifeVest arranged Monitor I's and O's, daily weight Needs follow up with Cardiology upon discharge (3) Diabetes mellitus type 2, uncontrolled: Uncontrolled - recent a1c 11.6 in August 2020 Repeat HbA1C:10.7 Initial BSG in 380s on presentation Continue Insulin therapy Appreciate glycemic mgmt Input Monitor blood glucose levels Hypomagnesemia Replace electrolytes as needed Monitor (4) History of tobacco use: Recently quit smoking. Nicotine patch (5) LEVON (obstructive sleep apnea): CPAP HS DVT Px: SQ Lovenox Code status: FULL CODE Admission and Anticipated Discharge Date Admission Date: October 07, 2020 Subjective Patient is seen and examined at bedside No arrhythmias overnight Dizziness resolved States feeling better today LifeVest arranged Discussed with cardiology today Review of Systems Review of Systems: All systems reviewed & are unremarkable except as noted in HPI & below Physical Exam Physical Exam: Physical Exam: Vitals signs as noted above General Appearance:Moderately built and nourished, no apparent distress Head: normocephalic, Atraumatic Eyes: normal inspection, EOMI Neck: supple, Trachea midline Respiratory/Chest: Normal breath sounds, CTA, No accessory muscle use Cardiovascular: S1, S2, No murmur Abdomen/GI:Soft, Non tender, Bowel sounds present Extremities/Musculoskeletal:normal inspection, Trace edema Neurologic/Psych:AAOX3, grossly no focal neurological deficits Skin: normal color, warm Results & Data Results & Data ([facility]) Vital Signs (Past 12 Hours) Vital Signs Temp Pulse Pulse Pulse Resp BP BP 10/08/20 11:19 36.9 C 102 H 89 19 108/77 101/69 10/08/20 08:20 36.9 C 89 19 108/77 10/08/20 08:00 84 10/08/20 04:05 36.6 C 86 18 103/72 Pulse Ox 10/08/20 11:19 94 10/08/20 08:20 94 10/08/20 08:00 10/08/20 04:05 96 Laboratory Results BMP 10/08/20 05:52 Sodium 136 Potassium 3.8 Chloride 104 Carbon Dioxide 28 BUN 24 H Creatinine 1.14 Glucose 159 H Calcium 8.6 Urine 10/08/20 Range/Units 09:15 Urine Color Dark Yellow Urine Appearance Clear (Clear) Urine pH 5.5 (4.5-7.5) Ur Specific [place] 1.010 (1.000-1.030) Urine Protein Negative (Negative) Urine Glucose (UA) Negative (Negative) (1) Diabetes mellitus type 2, uncontrolled Glycemic state: with hyperglycemia Qualified Code(s): E11.65 - Type 2 diabetes mellitus with hyperglycemia
--- NOTE | 2020-10-08 12:10 | Discharge Summary ---
Date of Service October 08, 2020 Admission HPI Per Admitting Provider This is a 50yo M with a PMH of combined systolic and diastolic heart failure, type 2 diabetes, hypertension, history of tobacco use and LEVON on CPAP who presented for scheduled diagnostic cardiac catheterization right and left heart earlier today by Dr. Ortiz. Findings demonstrate no obstructive coronary disease but poorly compensated cardiomyopathy. Patient admitted for inpatient management with high risk for further decline. Patient diagnosed with heart failure this past August with reduced EF of 30 to 34% with global hypokinesis. Repeat echo pending. Was transitioned from Lasix to torsemide 20 mg daily in the past few weeks with improved diuresis, per patient. Also with uncontrolled diabetes with recent A1c of 11.6 in August. Feeling well after cardiac cath. Endorsing continued intermittent palpitations. Able to fly flat without shortness of breath. Denies any cough, chest pain. Recently completed sleep study that showed severe LEVON and is due to start CPAP at home soon. Denies any fever, chills, lightheadedness, nausea, vomiting, abdominal pain, dysuria, diarrhea or constipation. Admission Exam Per Admitting Provider Physical Exam Constitutional: WD/WN, vitals as above Eyes: PERRL, conjunctivae normal, anicteric sclerae ENMT: external ear and nose normal, oropharynx normal Neck: trachea midline, no thyromegaly Respiratory: normal respiratory effort, lungs clear to auscultation Cardiovascular: Rate/Rhythm: regular rate and regular rhythm Heart Sounds: normal S1 and normal S2; no gallop and no murmur Palpation: normal PMI and + heave Vessels: normal carotid upstroke and radial pulses present (Radial access site healing); no JVD and no carotid bruit Extremities: + edema (Trace) Gastrointestinal (Abdomen): normal bowel sounds, soft, nontender, no hepatosplenomegaly Musculoskeletal: no cyanosis or clubbing, extremities motor strength 5/5 Skin: no rashes, warm and dry Neurologic: PERRL, EOMI, accommodation nl, no face palsy, no dysarthria Psychiatric: A+Ox3, euthymic affect Principal Diagnosis Acute on chronic systolic, diastolic heart failure Nonsustained ventricular tachycardia Uncontrolled diabetes mellitus Hypomagnesemia Discharge Data Allergies Allergy/AdvReac Type Severity Reaction Status Date / Time No Known Allergies Allergy Unverified 08/27/20 22:24 Consultations 10/05/20 10:40 Consult Hospitalist Routine Procedures Performed Operation Date: 10/05/20 08:00 Actual Procedures p Cath, Right and Left Heart - Dominick Ortiz MD s Cineradiography w/Routine Exam - Dominick Ortiz MD s Ultrasound Vascular Access - Dominick Ortiz MD Ordered Studies 10/05/20 06:53 CL Cath Imgs for PACS use only Routine -CXR:Mild vascular prominence without evidence of overt failure. Right basilar subsegmental atelectasis -Cardiac Cath:Large-caliber codominant coronary anatomy. Diffuse ectasia with moderate luminal irregularities but no obstructive disease. Poorly contractile ventricle on fluoroscopy (LV angiography not performed). Sinus tachycardia. Pulmonary hypertension with elevated left heart pressures, narrow pulse pressure consistent with poorly compensated congestive heart failure, marked increase in right heart pressures post coronary angiography -ECHO: Left ventricle is mildly dilated. Normal left ventricle wall thickness. Severe global hypokinesis of left ventricle. EF 20 to 25%. Mild to moderate mitral regurgitation. Mild tricuspid regurgitation. Right ventricle systolic pressure is elevated at 40 to 50 mmHg Diabetes Follow up Diabetes Follow-up Needed for HgbA1c >9% Hospital Course (1) Combined systolic and diastolic heart failure: (2) Non-ischemic cardiomyopathy: Patient is a 50 yr male with H/O combined systolic and diastolic heart failure, type 2 diabetes, hypertension, history of tobacco use and LEVON on CPAP who presented for scheduled diagnostic cardiac catheterization right and left heart by Dr. Ortiz. Acute on chronic systolic, diastolic heart failure Nonischemic cardiomyopathy NSVT Recently dx with combined systolic and diastolic heart failure August 2020 with estimated EF 30-34% with global hypokinesis -CXR:Mild vascular prominence without evidence of overt failure. Right basilar subsegmental atelectasis -Cardiac Cath:Large-caliber codominant coronary anatomy. Diffuse ectasia with moderate luminal irregularities but no obstructive disease. Poorly contractile ventricle on fluoroscopy (LV angiography not performed). Sinus tachycardia. Pulmonary hypertension with elevated left heart pressures, narrow pulse pressure consistent with poorly compensated congestive heart failure, marked increase in right heart pressures post coronary angiography -ECHO: Left ventricle is mildly dilated. Normal left ventricle wall thickness. Severe global hypokinesis of left ventricle. EF 20 to 25%. Mild to moderate mitral regurgitation. Mild tricuspid regurgitation. Right ventricle systolic pressure is elevated at 40 to 50 mmHg -Received IV Lasix -Continue torsemide 20mg daily, Aldactone 25mg daily Continue metoprolol 75mg BID, lisinopril 2.5mg PM daily Lisinopril dose decreased to 2.5 mg daily Appreciate cardiology input LifeVest arranged Monitor I's and O's, daily weight Needs follow up with Cardiology upon discharge (3) Diabetes mellitus type 2, uncontrolled: Uncontrolled - recent a1c 11.6 in August 2020 Repeat HbA1C:10.7 Initial BSG in 380s on presentation Continue Insulin therapy Appreciate glycemic mgmt Input Monitor blood glucose levels Hypomagnesemia Replace electrolytes as needed Monitor (4) History of tobacco use: Recently quit smoking. Nicotine patch (5) LEVON (obstructive sleep apnea): CPAP HS DVT Px: SQ Lovenox Code status: FULL CODE Total Time Total Time Spent Total Time Spent (In Minutes): 43 minutes Total Time Includes: Examination of the Patient, Discharge Planning, Medication Reconciliation, Communication With Other Providers and Other Discharge Plan Discharge Items Patient Disposition: Home - Self-Care Reason For Visit: Heart Failure w/Reduced Ejection Fraction, Discharge Diagnosis: Acute on chronic systolic, diastolic heart failure Nonsustained ventricular tachycardia Uncontrolled diabetes mellitus Hypomagnesemia Activity: Per Instructions section Exercise/Sports: Wait until after follow-up appointment Non-emergency contact: Primary Care Provider and Chief Nursing Officer Call non-emergency contact if: you have any medication questions, your symptoms worsen, your pain is concerning for you and you have a fever Follow-up/Referrals: Jenny Smith PA-C [Primary Care Provider] - (Date & Time 10/13/2020 9:20 AM Provider Rabia Adhikari [facility] ) Dominick Ortiz MD [Physician] - (Dr. Ortiz is unavailable.) Yaritza Zaragoza CRNP [Nurse Practitioner] - 10/15/20 3:00 pm (Dr. Ortiz is unavailable. Please follow up with AGAPITO Wong on Sunday10/15/20 at 3:00 pm. Please arrive to the office at 2:45 pm for your appointment. If you are unable to keep this appointment, please call the office to reschedule at [phone].) Diet: Carb Consistent or DM2 and Heart Healthy Addtl Attending Provider Instructions: Follow-up with your primary care physician Anne Betancourt PA-C on 10/13/2020 9:20 AM Follow-up with your digital developer Dr. Ortiz in 1 week as advised Get Blood Test (basic metabolic panel, magnesium level) in 1 week and follow-up with your physician for further instructions on medication adjustments. Seek immediate medical attention if your symptoms reoccur or worsen Please take all medications as instructed on discharge list below. Please call if you have any questions or problems. You can reach a [facility] hospitalist on duty at [facility] 24 hours a day by calling [phone] Call your Primary Care doctor if any of the following symptoms or problems start or get worse: * Shortness of breath or difficulty breathing * Wake up at night short of breath * Chest pain * Cough * Swelling of your hands, feet, or legs * More fatigued or tired with your normal activity * Palpitations - sudden fast heart beats WEIGHT * Weigh yourself every morning after using the bathroom. * Use the same scale. * Wear the same amount of clothing. * Write your weight down on a chart. * Call your Primary Care doctor if you gain more than 2-3 pounds in 1-2 days. MEDICATIONS * Use this discharge instruction sheet for medication instructions. * Take your medications at the time your doctor ordered. * Do not skip a dose of your medicines. * If you miss a dose of medicine, take it as soon as possible, but DO NOT DOUBLE A DOSE. * Read your medicine information when you get home. * Know all of the side effects of your medicine. If in doubt, ask your pharmacist * Call your Primary Care doctor's office if you have any side effects. * Be sure all of your doctors know what medicine and herbs you take (including cold, flu, and herbal medicine). Take the following with you to your follow-up doctor appointments: * Weight Chart * Medication List * List of questions Do not drink excessive alcohol, beer or wine. Pending Studies at Discharge: No Stand-Alone Forms: My [facility] [employer], Smoking Cessation Medications and DC Order Prescriptions: New spironolactone 25 mg Tablet 25 mg PO DAILY Qty: 30 RF: 1 potassium chloride [Klor-Con M20] 20 mEq Tablet,Er Particles/Crystals 20 meq PO DAILY Qty: 10 RF: 0 metoprolol succinate 25 mg Tablet Extended Release 24 Hr 75 mg PO BID17 30 Days Qty: 90 RF: 1 magnesium oxide 400 mg (241.3 mg magnesium) Tablet 400 mg PO QAM Qty: 10 RF: 0 Continued insulin aspart U-100 [Novolog Flexpen U-100 Insulin] 100 unit/mL (3 mL) Insulin Pen 1 unit SC ACHS Qty: 15 RF: 0 (DME) blood-glucose meter [OneTouch Verio Meter] Misc See Rx Instructions .ROUTE .MEDSUPPLY Qty: 1 RF: 0 (DME) blood sugar diagnostic Strip See Rx Instructions .ROUTE .MEDSUPPLY Qty: 10 RF: 0 (DME) lancets Misc See Rx Instructions .ROUTE .MEDSUPPLY Qty: 100 RF: 0 aspirin 81 mg tablet,delayed release (DR/EC) 81 mg PO DAILY RF: 0 nicotine 14 mg/24 hr patch 24 hour 14 mg topical DAILY RF: 0 metformin 1,000 mg tablet 1,000 mg PO BIDM RF: 0 nitroglycerin 0.4 mg tablet, sublingual 0.4 mg buccal UD RF: 0 rosuvastatin 20 mg tablet 20 mg PO DAILY RF: 0 Ozempic 0.25 mg or 0.5 mg(2 mg/1.5 mL) pen injector 0.25 mg SUBCUT WK RF: 0 Lantus Solostar U-100 Insulin 100 unit/mL (3 mL) insulin pen 35 unit SC HS RF: 0 torsemide 20 mg Tablet 20 mg PO DAILY Qty: 30 RF: 1 Changed lisinopril [Zestril] 5 mg Tablet 2.5 mg PO 1700 Qty: 30 RF: 5 Discontinued metoprolol succinate 25 mg tablet extended release 24 hr 25 mg PO BID RF: 0 Discharge Orders: Discharge Order (Routine); Ordered 10/08/20 Ordered By: Blaine Mcgee Admission Data Admit Date/Time: 10/07/20 14:06 Attending Provider: Dominick Ortiz Admit Provider: Dominick Ortiz Primary Care Provider: Jenny Smith Other Providers: Lois Earl ; Ana Ang ; Brendon Lees ; Leslye Damon ; Yane Monteiro ; Ayleen Monge ; Kerrie Bazan ; Kate Royal ; Ramy Talley ; Lewis Garcia ; Marvin Bueno ; Eboni Heredia ; Nydia Brito ; Blaine Mcgee ; Cesilia Dueñas ; Karine Farias ; Sal Musa ; Megan Blount ; Ghazal Rea ; Elicia Gasca ; Nakita Singh I. ; Jarvis Alberts Other Interventions: Discharge Summary Assessment (RN) Last Done: 10/08/20 12:27
[2020-10-09] MEDS ORDERED: SPIRONOLACTONE 25 MG TAB PO SCH (09:00)
== END 2020-10-08 13:00 | disposition home or self-care (01) ==
LOC: 2S 07:14 → CC 07:14

== ENCOUNTER 2021-03-22 11:19 | Observation (INO) ==
[2021-03-22] MEDS ORDERED: MoRPHine SULFATE 4 MG/ML 1 ML CARP\\VIAL IV STA (11:54)
[2021-03-22] MEDS ORDERED: SODIUM CHLORIDE 0.9% 1000ML 1,000 ML IV STA (11:54)
[2021-03-22] MEDS ORDERED: ONDANSETRON INJ 2 MG/ML 2 ML VIAL IV STA (11:56)
[2021-03-22 12:08] LABS: Basophils # (auto) 0.01 K/uL (0-0.2); Basophils % (auto) 0.1 %; Eosinophils # (auto) 0.22 K/uL (0-0.5); Hematocrit (blood only) 41.4 % (42-52); Hemoglobin 14.7 g/dL (14.0-18.0); Immature Granulocytes # (auto) 0.02 K/uL (0.00-0.02); Immature Granulocytes % (auto) 0.3 %; Lymphocytes # (auto) 2.26 K/uL (1.2-3.4); Lymphocytes % (auto) 31.2 %; Mean Corpuscular Hemoglobin 36.7 pg (25-34); Mean Corpuscular Hgb Conc 35.5 g/dL (32-36); Mean Corpuscular Volume 103.2 fL (80-100); Mean Platelet Volume 10.5 fL (7.4-10.4); Monocytes # (auto) 0.69 K/uL (0.11-0.59); Monocytes % (auto) 9.5 %; Neutrophils # (auto) 4.05 K/uL (1.4-6.5); Neutrophils % (auto) 55.9 %; Platelet Count 177 K/uL (130-400); RDW Coefficient of Variation 12.4 % (11.5-14.5); RDW Standard Deviation 47.3 fL (36.4-46.3); Red Blood Count 4.01 M/uL (4.7-6.1); White Blood Count 7.25 K/uL (4.8-10.8)
[2021-03-22 12:10] LABS: iSTAT Creatinine 0.7 mg/dl (0.6-1.3); iSTAT Hemoglobin 14.6 g/dl (14.0-18.0); iSTAT Ionized Calcium 1.17 mmol/l (1.12-1.32); iSTAT Potassium 3.8 mmol/L (3.3-5.0)
[2021-03-22 12:19] LABS: Partial Thromboplastin Time 26.8 Seconds (21.0-31.0)
[2021-03-22] MEDS ORDERED: OPTIRAY 320 125ml IV ONE (12:20)
[2021-03-22 12:26] LABS: BUN Creatinine Ratio 13.7 (10-20); Blood Urea Nitrogen 13 mg/dl (7-18); Calcium 8.8 mg/dl (8.5-10.1); Carbon Dioxide 25 mmol/L (21-32); Chloride 106 mmol/L (98-107); Est GFR (African American) 105.6 ml/min; Est GFR (Non-African American) 91.2 ml/min; Glucose 284 mg/dl (70-99); Lipase 192 U/L (73-393); Potassium 3.8 mmol/L (3.5-5.1); Sodium 136 mmol/L (136-145)
[2021-03-22 12:30] LABS: Creatine Kinase 121 U/L (39-308); Troponin I < 0.015 ng/ml (0-0.045)
--- NOTE | 2021-03-22 12:42 | XRay Report ---
SINGLE VIEW CHEST CLINICAL HISTORY: Atypical chest pain. FINDINGS: An AP, portable, upright chest radiograph is compared to study dated 10/05/2020. The heart i s mildly enlarged. The pulmonary vasculature is noncongested. The lungs and pleural spaces are clear. No pneumothorax is seen. The bony thorax is grossly intact. IMPRESSION: Mild cardiomegaly with no active disease in the chest. ACT 112: Negative or not required by law. Electronically signed by: Reilly Hoover M.D. 03/22/2021 12:41 PM
--- NOTE | 2021-03-22 12:50 | CT Scan Report ---
CT ANGIOGRAM OF THE CHEST COMBO CLINICAL HISTORY: Atypical chest pain. COMPARISON STUDY: Chest x-ray dated 03/22/2021. TECHNIQUE: Before and following the IV administration of 119 cc of Optiray 320, CT angiogram of the c hest was performed from the thoracic inlet to the upper abdomen utilizing the dissection protocol. Im ages are reviewed in the axial, sagittal, and coronal planes. 3-D MIPS images are created and assesse d. IV contrast was administered without complication. A dose lowering technique was utilized adherin g to the principles of ALARA. FINDINGS: Thyroid: Imaged portions of the thyroid gland are normal in size and attenuation. Thoracic aorta: No intramural hematoma is seen on the unenhanced series. The thoracic aorta is normal in caliber and demonstrates standard 3-vessel arch anatomy. No dissection is seen. The arch vessels are widely patent. Pulmonary vasculature: The pulmonary trunk is normal in caliber. There are no filling defects identif ied in the main, lobar, or segmental pulmonary vessels to suggest pulmonary embolus. Heart: The heart is mildly enlarged and without pericardial effusion. Lungs and pleural spaces: The lungs and pleural spaces are clear. The trachea and central airways are patent. Mediastinum: There is no mediastinal lymphadenopathy. Chelsie: Clear. Axillae: There is no axillary lymphadenopathy. Upper abdomen: Partially visualized upper abdominal viscera is within normal limits. Skeletal structures: No lytic or blastic bony lesions are seen. Arthritic change is seen in the shoul ders. IMPRESSION: 1. Unremarkable CT angiogram of the thoracic aorta. 2. There is no evidence of pulmonary embolus in the main, lobar, or segmental pulmonary arteries. 3. The lungs are clear. 4. Mild cardiac enlargement. 5. Additional findings as above. ACT 112: Negative or not required by law. Electronically signed by: Reilly Hoover M.D. 03/22/2021 12:49 PM
--- NOTE | 2021-03-22 13:07 | CT Scan Report ---
CT angio abdomen pelvis w con CLINICAL HISTORY: ro dissection TECHNIQUE: Multidetector row helical CT of the abdomen, pelvis and bilateral lower extremities down t hrough the feet was performed, following intravenous administration of 140 cc of Omnipaque-350. No or al contrast was administered. Coronal and sagittal reformations were obtained. MIP and 3D volume rend ered reconstructions were obtained. Comparison: None available at the time of this dictation. FINDINGS: Lower chest: For findings above the diaphragm, please see CT chest performed same day. Liver: Unremarkable. No focal lesions are seen. Gallbladder and biliary tree: No calcified gallstones. Normal caliber wall. No intra- or extrahepatic biliary ductal dilation. Pancreas: Unremarkable, no focal lesions. Spleen: Unremarkable. Adrenals: Unremarkable. Kidneys and ureters: Unremarkable. Bladder: Unremarkable. Reproductive organs: Unremarkable. Bowel: Unremarkable. Lymph nodes Retroperitoneal: Unremarkable. Mesenteric: Unremarkable. Pelvic: Unremarkable. Peritoneum: Normal Abdominal wall: Unremarkable. Bones: Unremarkable. CT angiogram: The abdominal aortic contours appear intact without evidence of aneurysmal dilatation a nd/or dissection. No significant atherosclerosis is seen. The origins of the celiac axis, superior mesenteric, inferior mesenteric and bilateral renal arteries are patent. IMPRESSION: No acute abnormalities and in particular no evidence of aortic dissection. ACT 112: Negative or not required by law. Electronically signed by: Karl Melendrez M.D. 03/22/2021 1:05 PM
--- NOTE | 2021-03-22 13:20 | History & Physical Report ---
Date of Service March 22, 2021 Assessment & Plan (1) Chest pain: Plan: This is a 50-year-old male with PMH of nonischemic cardiomyopathy diagnosed in August 2020 with EF of 30%, uncontrolled type 2 diabetes, hypertension, hyperlipidemia, former tobacco use, severe LEVON on bipap who presents with chest pain and back pain starting last evening. Intermittent pain since last evening, currently asymptomatic No acute ECG changes, initial troponin negative, chest CTA with unremarkable CT angiogram of the thoracic aorta, no evidence of pulmonary embolus in the main, lobar, or segmental pulmonary arteries, lungs are clear, mild cardiac enlargement Trend troponin, monitor on tele, continue aspirin, statin, Toprol Repeat echo pending, routine cardiology consult, NPO @ [facility] (2) Combined systolic and diastolic heart failure: (3) Non-ischemic cardiomyopathy: Plan: Diagnosed with severe HF last August 2020, echo with moderately to severe reduced EF of 30 to 35%. Global hypokinesis. No LVH Dr. Hutchinson planning for ICD placement scheduled on 03/28 at [facility] Appears euvolemic on exam Continue Entresto, Toprol, torsemide, spironolactone (4) Lower back pain: Plan: Seems musculoskeletal in nature, although has urinary complaints CT abd/pelvis without any evidence of nephrolithiasis, urinary obstruction or distended bladder UA pending (5) Nonsustained ventricular tachycardia: Plan: History of short run of NSVT on previous admission last August Discharged with LifeVest but patient did not wear and ultimately returned per cards note (6) Diabetes mellitus type 2, uncontrolled: Plan: A1c 11.1 in Jan 2021 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 Continue home medications (8) LEVON (obstructive sleep apnea): Plan: Severe LEVON. Continue bipap HS (9) History of tobacco use: Plan: Recently quit smoking. Hold nicotine patch for now DVT Ppx: SQ heparin Code status: FULL PCP: Zeynep Dispo: Observation PCU Patient seen in collaboration with Dr. Leone. Please see addendum. History of Present Illness Chief Complaint: Chest pain, lower back pain Primary Care Provider: Jenny Smith PA-C This is a 50-year-old male with PMH of nonischemic cardiomyopathy diagnosed in August 2020 with EF of 30%, uncontrolled type 2 diabetes, hypertension, hyperlipidemia, former tobacco use, severe LEVON on bipap who presents with chest pain and back pain starting last evening. Patient was holding his 4-month-old grandson when he developed central chest discomfort and left lower back pain. Describes chest pain is intermittent throughout the evening, nonradiating and not associated with any diaphoresis, nausea, vomiting or shortness of breath. Did not take any additional medication for this. States that left lower back pain was actually worse in character and constant, waking him up at 3 in the morning. Thinks that maybe he turned the wrong way while holding his granddaughter. Does endorse some burning with urination and rust colored urine this morning, prompting presentation to ED. Denies any fever, chills, headache, lightheadedness, cough, congestion, palpitations, shortness of breath, nausea, vomiting, abdominal pain, diarrhea or constipation. Follows with AGAPITO Bravo and Dr. Hutchinson. Dr. Hutchinson planning for ICD placement scheduled on 03/28 at [facility]. Echo from August 2020 with moderately to severe reduced EF of 30 to 35%. Global hypokinesis. No LVH. Allergies Allergy/AdvReac Type Severity Reaction Status Date / Time No Known Allergies Allergy Unverified 03/22/21 13:47 Home Medications Medication Instructions Recorded Confirmed Type aspirin 81 mg tablet,delayed 81 mg PO DAILY 09/06/20 03/22/21 History release insulin glargine 100 unit/mL (3 35 unit SC HS 09/06/20 03/22/21 History mL) subcutaneous pen (Lantus Solostar U-100 Insulin) metformin 1,000 mg tablet 1,000 mg PO BIDM 09/06/20 03/22/21 History nicotine 14 mg/24 hr daily 14 mg TOPICAL DAILY 09/06/20 03/22/21 History transdermal patch nitroglycerin 0.4 mg sublingual 0.4 mg BUCCAL UD 09/06/20 03/22/21 History tablet rosuvastatin 20 mg tablet 20 mg PO DAILY 09/06/20 03/22/21 History semaglutide (Ozempic) 0.25 mg SUBCUT WK 09/06/20 03/22/21 History magnesium oxide 400 mg (241.3 mg 400 mg PO QAM #10 tab 10/08/20 03/22/21 Rx magnesium) tablet spironolactone 25 mg tablet 25 mg PO DAILY #30 tab 10/08/20 03/22/21 Rx torsemide 20 mg tablet 20 mg PO DAILY #30 tab 10/08/20 03/22/21 Rx insulin aspart U-100 100 unit/mL 3 unit SC ACHS 03/22/21 03/22/21 History (3 mL) subcutaneous pen (Novolog Flexpen U-100 Insulin aspart) metoprolol succinate 100 mg 100 mg PO BID 03/22/21 03/22/21 History tablet,extended release 24 hr sacubitril 97 mg-valsartan 103 mg 1 tab PO BID 03/22/21 03/22/21 History tablet (Entresto) Past Med/Surg History Medical History Combined systolic and diastolic heart failure Diabetes mellitus type 2, uncontrolled History of tobacco use Hypertension Non-ischemic cardiomyopathy LEVON (obstructive sleep apnea) Surgical History No pertinent past surgical history Family History Other Cancer Heart disease Lupus Social History Smoking Status: Former smoker Tobacco Type: Cigarettes Second Hand Exposure: No; Do You Dip or Chew Tobacco: No; Tobacco Cessation Education Requested by Patient: No Hx Alcohol Use: Yes Alcohol type: hard liquor Hx Substance Use: No Preferred Language: Arabic Communication Ability: Effective Design Director Required: No Beliefs That Will Affect Care: None Current Living Situation: Family Other Information That Helps Us Care for You: No Feels Safe at Home: Yes Safety Concerns: Feels Safe At This Time Assistive Devices: BiPap and Glasses Review of Systems Review of Systems: At least ten systems reviewed and negative except as noted in the HPI. Physical Exam Physical Exam: General Appearance: WD/WN, vitals as above, NAD, sitting up in bed, pleasant, conversing easily Head: normocephalic, atraumatic Eyes: normal inspection, PERRL, conjunctivae normal, anicteric sclerae ENT: external ear and nose normal, oropharynx normal Neck: normal visual inspection, trachea midline, no thyromegaly Respiratory: normal respiratory effort, lungs clear to auscultation, no wheeze, rales, rhonchi. No accessory muscle use Cardiovascular: regular rate, rhythm, no murmur, normal peripheral pulses, no BLE edema. Vessels: no JVD Chest: normal inspection of chest Abdomen/GI: normal bowel sounds, soft, nontender, no hepatosplenomegaly Extremities/Musculoskeletal: L lower paraspinal TTP, no CVA TTP. No cyanosis or clubbing, extremities motor strength 5/5 Neurologic: PERRL, EOMI, accommodation nl, no face palsy, no dysarthria, CN's II-XI intact bilaterally and moves all extremities Psychiatric: A+Ox3, euthymic affect Skin: no rashes, normal color, warm/dry Results & Data Results & Data ([facility]) Vital Signs (Past 12 Hours) Vital Signs Temp Pulse Resp BP Pulse Ox 03/22/21 11:22 36.8 C 92 H 18 132/91 100 Laboratory Results Short CBC 03/22/21 Range/Units 11:50 WBC 7.25 (4.8-10.8) K/uL Hgb 14.7 (14.0-18.0) g/dL Hct 41.4 L (42-52) % Plt Count 177 (130-400) K/uL BMP 03/22/21 11:50 Sodium 136 Potassium 3.8 Chloride 106 Carbon Dioxide 25 BUN 13 Creatinine 0.96 Glucose 284 H Calcium 8.8 Cardiac Enzymes 03/22/21 Range/Units 11:50 Total Creatine Kinase 121 (39-308) U/L Troponin I < 0.015 (0-0.045) ng/ml Urine 03/22/21 Range/Units 13:50 Urine Color Yellow Urine Appearance Clear (Clear) Urine pH 7.5 (4.5-7.5) Ur Specific [place] > 1.045 H (1.000-1.030) Urine Protein Negative (Negative) Urine Glucose (UA) 2+ H (Negative) Diagnostic Findings Chest X-Ray 03/22/21 11:54 SINGLE VIEW CHEST CLINICAL HISTORY: Atypical chest pain. FINDINGS: An AP, portable, upright chest radiograph is compared to study dated 10/05/2020. The heart is mildly enlarged. The pulmonary vasculature is noncongested. The lungs and pleural spaces are clear. No pneumothorax is seen. The bony thorax is grossly intact. IMPRESSION: Mild cardiomegaly with no active disease in the chest. ACT 112: Negative or not required by law. Electronically signed by: Reilly Hoover M.D. 03/22/2021 12:41 PM Chest CTA 03/22/21 11:55 CT ANGIOGRAM OF THE CHEST COMBO CLINICAL HISTORY: Atypical chest pain. COMPARISON STUDY: Chest x-ray dated 03/22/2021. TECHNIQUE: Before and following the IV administration of 119 cc of Optiray 320, CT angiogram of the chest was performed from the thoracic inlet to the upper abdomen utilizing the dissection protocol. Images are reviewed in the axial, sagittal, and coronal planes. 3-D MIPS images are created and assessed. IV contrast was administered without complication. A dose lowering technique was utilized adhering to the principles of ALARA. FINDINGS: Thyroid: Imaged portions of the thyroid gland are normal in size and attenuation. Thoracic aorta: No intramural hematoma is seen on the unenhanced series. The thoracic aorta is normal in caliber and demonstrates standard 3-vessel arch anatomy. No dissection is seen. The arch vessels are widely patent. Pulmonary vasculature: The pulmonary trunk is normal in caliber. There are no filling defects identified in the main, lobar, or segmental pulmonary vessels to suggest pulmonary embolus. Heart: The heart is mildly enlarged and without pericardial effusion. Lungs and pleural spaces: The lungs and pleural spaces are clear. The trachea and central airways are patent. Mediastinum: There is no mediastinal lymphadenopathy. Chelsie: Clear. Axillae: There is no axillary lymphadenopathy. Upper abdomen: Partially visualized upper abdominal viscera is within normal limits. Skeletal structures: No lytic or blastic bony lesions are seen. Arthritic change is seen in the shoulders. IMPRESSION: 1. Unremarkable CT angiogram of the thoracic aorta. 2. There is no evidence of pulmonary embolus in the main, lobar, or segmental pulmonary arteries. 3. The lungs are clear. 4. Mild cardiac enlargement. 5. Additional findings as above. ACT 112: Negative or not required by law. Electronically signed by: Reilly Hoover M.D. 03/22/2021 12:49 PM Abdomen/Pelvis CTA 03/22/21 11:56 CT angio abdomen pelvis w con CLINICAL HISTORY: ro dissection TECHNIQUE: Multidetector row helical CT of the abdomen, pelvis and bilateral lower extremities down through the feet was performed, following intravenous administration of 140 cc of Omnipaque-350. No oral contrast was administered. Coronal and sagittal reformations were obtained. MIP and 3D volume rendered reconstructions were obtained. Comparison: None available at the time of this dictation. FINDINGS: Lower chest: For findings above the diaphragm, please see CT chest performed same day. Liver: Unremarkable. No focal lesions are seen. Gallbladder and biliary tree: No calcified gallstones. Normal caliber wall. No intra- or extrahepatic biliary ductal dilation. Pancreas: Unremarkable, no focal lesions. Spleen: Unremarkable. Adrenals: Unremarkable. Kidneys and ureters: Unremarkable. Bladder: Unremarkable. Reproductive organs: Unremarkable. Bowel: Unremarkable. Lymph nodes Retroperitoneal: Unremarkable. Mesenteric: Unremarkable. Pelvic: Unremarkable. Peritoneum: Normal Abdominal wall: Unremarkable. Bones: Unremarkable. CT angiogram: The abdominal aortic contours appear intact without evidence of aneurysmal dilatation and/or dissection. No significant atherosclerosis is seen. The origins of the celiac axis, superior mesenteric, inferior mesenteric and bilateral renal arteries are patent. IMPRESSION: No acute abnormalities and in particular no evidence of aortic dissection. ACT 112: Negative or not required by law. Electronically signed by: Karl Melendrez M.D. 03/22/2021 1:05 PM Supervising Physician Co-Signing Physician Notes Pt is a 50 y/o M with hx of IDDM, HFrEF, HTN admitted for chest pain and L lower back pain Exam: NAD Lungs: good air entry b/l, no crackles or wheezing Cardiac: normal S1/S2 Abd: soft, ND, NT, no CVA TTP MSK: TTP of the L lower back, no LE edema Psych: AAOx3 A/P: Chest pain: -Trop is negative - EKG showed no significant Change - CTA showed no dissection - will trend trop - cards consult HFrEF: -per pt he is taking entresto and Lisinopril together --- will hold Lisinopril for now & continue entresto -strict I/O, daily weights and fluid restriction Lower back pain: -not suspecting nephrolithiasis -likely 2/2 MSK - will do prn pain meds Agree with A/P by Kate Royal PA-C (1) Diabetes mellitus type 2, uncontrolled Glycemic state: with hyperglycemia Qualified Code(s): E11.65 - Type 2 diabetes mellitus with hyperglycemia (2) Chest pain Chest pain type: unspecified Qualified Code(s): R07.9 - Chest pain, unspecified
--- NOTE | 2021-03-22 13:34 | Emergency Department Note ---
History of Present Illness General Chief Complaint: Chest Pain Time Seen by Provider: 03/22/21 11:50 History of Present Illness Provider Complaint: chest pain Onset (ago): day(s) 1 Duration: improved Onset: during rest Pain Location: left chest Pain Radiation: abdomen (L flank) Severity: moderate Maximum Pain Intensity: 7 Current Pain Intensity: 1 Quality: + tightness, + aching, + heaviness and + dull Relieved By: + nitroglycerin Exacerbated By: + nothing Context: no recent illness, no recent surgery, no recent immobilization, no recent travel, no trauma/injury, no new medications or no history of DVT/PE Associated symptoms: + other (hematuria); no nausea, no vomiting, no diaphore sis, no dyspnea, no syncope, no palpitations, no fever, no cough or no leg swelling Treatments prior to arrival: aspirin and nitroglycerin Home Medications Medication Instructions Recorded Confirmed Type blood sugar diagnostic #10 ea 08/29/20 09/06/20 Rx blood-glucose meter (OneTouch #1 ea 08/29/20 09/06/20 Rx Verio Meter) insulin aspart U-100 100 unit/mL 1 unit SC ACHS #15 ml 08/29/20 10/05/20 Rx (3 mL) subcutaneous pen (Novolog Flexpen U-100 Insulin aspart) lancets #100 ea 08/29/20 09/06/20 Rx aspirin 81 mg tablet,delayed 81 mg PO DAILY 09/06/20 10/05/20 History release insulin glargine 100 unit/mL (3 35 unit SC HS 09/06/20 10/05/20 History mL) subcutaneous pen (Lantus Solostar U-100 Insulin) metformin 1,000 mg tablet 1,000 mg PO BIDM 09/06/20 10/05/20 History nicotine 14 mg/24 hr daily 14 mg TOPICAL DAILY 09/06/20 10/05/20 History transdermal patch nitroglycerin 0.4 mg sublingual 0.4 mg BUCCAL UD 09/06/20 10/05/20 History tablet rosuvastatin 20 mg tablet 20 mg PO DAILY 09/06/20 10/05/20 History semaglutide (Ozempic) 0.25 mg SUBCUT WK 09/06/20 10/05/20 History lisinopril 5 mg tablet (Zestril) 2.5 mg PO 1700 #30 tab 10/08/20 10/05/20 Rx magnesium oxide 400 mg (241.3 mg 400 mg PO QAM #10 tab 10/08/20 Rx magnesium) tablet metoprolol succinate 25 mg 75 mg PO BID17 30 Days #90 tab 10/08/20 Rx tablet,extended release 24 hr potassium chloride 20 mEq 20 meq PO DAILY #10 tab 10/08/20 Rx tablet,extended release(part/cryst) (Klor-Con M) spironolactone 25 mg tablet 25 mg PO DAILY #30 tab 10/08/20 Rx torsemide 20 mg tablet 20 mg PO DAILY #30 tab 10/08/20 Rx Allergies Allergy/AdvReac Type Severity Reaction Status Date / Time No Known Allergies Allergy Unverified 08/27/20 22:24 Past Med/Surg History Medical History Combined systolic and diastolic heart failure Diabetes mellitus type 2, uncontrolled History of tobacco use Hypertension Non-ischemic cardiomyopathy LEVON (obstructive sleep apnea) Surgical History No pertinent past surgical history Family History Other Cancer Heart disease Lupus Social History Smoking Status: Former smoker Tobacco Type: Cigarettes Second Hand Exposure: No; Hx Alcohol Use: No Hx Substance Use: No Preferred Language: Malian Communication Ability: Effective Cottage Attendant Required: No Beliefs That Will Affect Care: None Current Living Situation: Spouse Feels Safe at Home: Yes Assistive Devices: Glasses Review of Systems A total of 10 systems reviewed and were otherwise negative Physical Exam Vital Signs Vital Signs - 24 hr 03/22/21 11:22 03/22/21 11:54 Temperature 36.8 C Temperature Source Oral Pulse Rate 92 H Respiratory Rate 18 Respiratory Effort / Characteristics Non-Labored Respiratory Depth Normal Blood Pressure 132/91 Blood Pressure Mean 104 Pulse Oximetry 100 Oxygen Delivery Method Room Air Room Air Sepsis Recent Fever Within 48 Hours No Sepsis New/Unexplained Change in Mental Status No Sepsis Action Taken by Nursing No Action Required Physical Exam GENERAL: He is oriented to person, place, and time. He appears well-developed and well-nourished. He does not appear distressed. HENT: Exam performed. - Head: Normocephalic and atraumatic. - Right Ear: External ear normal. No mastoid tenderness. - Left Ear: External ear normal. No mastoid tenderness. - Mouth/Throat: The oropharynx is clear and moist. No trismus in the jaw. No dental abscesses or uvula swelling. No oropharyngeal exudate or tonsillar abscesses. EYES: Conjunctivae and EOM are normal. Pupils are equal, round, and reactive to light. Right eye exhibits no discharge. Left eye exhibits no discharge. No scleral icterus. NECK: Normal range of motion. Neck supple. No JVD present. No spinous process tenderness present. No carotid bruit present. No rigidity. No tracheal deviation and normal range of motion present. No Brudzinski's sign and no Kernig's sign noted. CV: Normal rate, regular rhythm, normal heart sounds and intact distal pulses. There is no peripheral edema. Palpable radial pulses bue. PULM/CHEST: Effort normal and breath sounds normal. No respiratory distress. No stridor. He has no wheezes. He has no rales. - Chest Wall: He exhibits no tenderness. ABD: The abdomen is soft. Bowel sounds are normal. He has no distension. No mass is present. There is no tenderness. There is no rebound, no guarding, no Amin's sign and no tenderness at McBurney's point. Rovsig negative. MUSC/SKEL: Normal range of motion. There is no peripheral edema, tenderness or deformity. LYMPH: No cervical adenopathy. NEURO: He is alert and oriented to person, place, and time. He has normal strength. No cranial nerve deficit or sensory deficit. Coordination and gait normal. GCS eye subscore is 4. GCS verbal subscore is 5. GCS motor subscore is 6. Cerebellar tests wnl. SKIN: Skin is warm and dry. He is not diaphoretic. PSYCH: He has a normal mood and affect. Behavior is normal. Judgment and thought content normal. Course Course 1150: The patient was evaluated in room A4. A complete history and physical exam was performed Cardiac monitoring: An order was placed for continuous cardiac monitoring. The monitor shows a rate of 60 with sinus rhythm 1331: Vital signs stable. Labs and imaging within normal limits including negat catalina troponin and negative CTA of the chest and abdomen, no dissection. Patient will be admitted to the [facility] hospitalist team for chest pain rule out ACS. Discussed with Kate Royal who states to admit to Dr. Krishnamurthy Administered Medications Discontinued Medications Sodium Chloride (Nss 1000ml) 1,000 mls @ 999 mls/hr IV .Q1H1M STA Stop: 03/22/21 12:54 Last Admin: 03/22/21 12:12 Dose: 999 mls/hr Documented by: [id number] Ioversol (Optiray 320 125ml) 119 ml IV ONCE ONE Stop: 03/22/21 12:21 Last Admin: 03/22/21 12:22 Dose: 119 ml Documented by: [id number] Morphine Sulfate (Morphine Sulfate 4 Mg/Ml 1 Ml Carp\Vial) 4 mg IV NOW STA Stop: 03/22/21 11:55 Last Admin: 03/22/21 12:12 Dose: 4 mg Documented by: [id number] Ondansetron HCl (Ondansetron Inj 2 Mg/Ml 2 Ml Vial) 4 mg IV NOW STA Stop: 03/22/21 11:57 Last Admin: 03/22/21 12:12 Dose: 4 mg Documented by: [id number] Medical Decision Making Laboratory Data Result diagrams: 03/22/21 11:50 03/22/21 11:50 Labs: Lab Results 03/22/21 03/22/21 03/22/21 Range/Units 11:50 11:50 11:50 WBC 7.25 (4.8-10.8) K/uL RBC 4.01 L (4.7-6.1) M/uL Hgb 14.7 (14.0-18.0) g/dL POC Hgb (14.0-18.0) g/dl Hct 41.4 L (42-52) % POC Hct (42-52) % MCV 103.2 H (80-100) fL MCH 36.7 H (25-34) pg MCHC 35.5 (32-36) g/dL RDW Std Deviation 47.3 H (36.4-46.3) fL RDW Coeff of Airam 12.4 (11.5-14.5) % Plt Count 177 (130-400) K/uL MPV 10.5 H (7.4-10.4) fL Immature Gran % (Auto) 0.3 % Neut % (Auto) 55.9 % Lymph % (Auto) 31.2 % Arroyo % (Auto) 9.5 % Eos % (Auto) 3.0 % Baso % (Auto) 0.1 % Neut # (Auto) 4.05 (1.4-6.5) K/uL Lymph # (Auto) 2.26 (1.2-3.4) K/uL Arroyo # (Auto) 0.69 H (0.11-0.59) K/uL Eos # (Auto) 0.22 (0-0.5) K/uL Baso # (Auto) 0.01 (0-0.2) K/uL Immature Gran # (Auto) 0.02 (0.00-0.02) K/uL PT 10.0 (9.0-12.0) Seconds INR 1.0 (0.9-1.1) APTT 26.8 (21.0-31.0) Seconds PTT Ratio 1.0 POC Sodium (135-144) mmol/L Sodium 136 (136-145) mmol/L POC Potassium (3.3-5.0) mmol/L Potassium 3.8 (3.5-5.1) mmol/L POC Chloride (101-112) mmol/L Chloride 106 (98-107) mmol/L Carbon Dioxide 25 (21-32) mmol/L POC Total CO2 (24-31) mmol/L Anion Gap 5.0 (3-11) POC Anion Gap (16-25) mmol/L POC BUN (7-18) mg/dl BUN 13 (7-18) mg/dl Creatinine 0.96 (0.6-1.4) mg/dl POC Creatinine (0.6-1.3) mg/dl Est Cr Clr Drug Dosing Not Reportable Est GFR ( Amer) 105.6 ml/min Est GFR (Non-Af Amer) 91.2 ml/min BUN/Creatinine Ratio 13.7 (10-20) Glucose 284 H (70-99) mg/dl POC Glucose (other) (70-99) mg/dl Calcium 8.8 (8.5-10.1) mg/dl POC Ioniz Calcium Aviva (1.12-1.32) mmol/l Total Creatine Kinase 121 (39-308) U/L Troponin I < 0.015 (0-0.045) ng/ml Lipase 192 (73-393) U/L 03/22/21 Range/Units 11:58 WBC (4.8-10.8) K/uL RBC (4.7-6.1) M/uL Hgb (14.0-18.0) g/dL POC Hgb 14.6 (14.0-18.0) g/dl Hct (42-52) % POC Hct 43 (42-52) % MCV (80-100) fL MCH (25-34) pg MCHC (32-36) g/dL RDW Std Deviation (36.4-46.3) fL RDW Coeff of Airam (11.5-14.5) % Plt Count (130-400) K/uL MPV (7.4-10.4) fL Immature Gran % (Auto) % Neut % (Auto) % Lymph % (Auto) % Arroyo % (Auto) % Eos % (Auto) % Baso % (Auto) % Neut # (Auto) (1.4-6.5) K/uL Lymph # (Auto) (1.2-3.4) K/uL Arroyo # (Auto) (0.11-0.59) K/uL Eos # (Auto) (0-0.5) K/uL Baso # (Auto) (0-0.2) K/uL Immature Gran # (Auto) (0.00-0.02) K/uL PT (9.0-12.0) Seconds INR (0.9-1.1) APTT (21.0-31.0) Seconds PTT Ratio POC Sodium 137 (135-144) mmol/L Sodium (136-145) mmol/L POC Potassium 3.8 (3.3-5.0) mmol/L Potassium (3.5-5.1) mmol/L POC Chloride 101 (101-112) mmol/L Chloride (98-107) mmol/L Carbon Dioxide (21-32) mmol/L POC Total CO2 24 (24-31) mmol/L Anion Gap (3-11) POC Anion Gap 17.0 (16-25) mmol/L POC BUN 13 (7-18) mg/dl BUN (7-18) mg/dl Creatinine (0.6-1.4) mg/dl POC Creatinine 0.7 (0.6-1.3) mg/dl Est Cr Clr Drug Dosing Est GFR ( Amer) ml/min Est GFR (Non-Af Amer) ml/min BUN/Creatinine Ratio (10-20) Glucose (70-99) mg/dl POC Glucose (other) 284 H (70-99) mg/dl Calcium (8.5-10.1) mg/dl POC Ioniz Calcium Aviva 1.17 (1.12-1.32) mmol/l Total Creatine Kinase (39-308) U/L Troponin I (0-0.045) ng/ml Lipase (73-393) U/L Imaging Data Chest x-ray: Radiologist's impression: SINGLE VIEW CHEST CLINICAL HISTORY: Atypical chest pain. FINDINGS: An AP, portable, upright chest radiograph is compared to study dated 10/05/2020. The heart is mildly enlarged. The pulmonary vasculature is noncon gested. The lungs and pleural spaces are clear. No pneumothorax is seen. The bony thorax is grossly intact. IMPRESSION: Mild cardiomegaly with no active disease in the chest. ACT 112: Negative or not required by law. Electronically signed by: Reilly Hoover M.D. 03/22/2021 12:41 PM Dictated: 03/22/21 1240 Transcribed: 03/22/[address] scan - abdomen: Radiologist's impression: CT angio abdomen pelvis w con CLINICAL HISTORY: ro dissection TECHNIQUE: Multidetector row helical CT of the abdomen, pelvis and bilateral lower extremities down through the feet was performed, following intravenous administration of 140 cc of Omnipaque-350. No oral contrast was administered. Coronal and sagittal reformations were obtained. MIP and 3D volume rendered reconstructions were obtained. Comparison: None available at the time of this dictation. FINDINGS: Lower chest: For findings above the diaphragm, please see CT chest performed same day. Liver: Unremarkable. No focal lesions are seen. Gallbladder and biliary tree: No calcified gallstones. Normal caliber wall. No intra- or extrahepatic biliary ductal dilation. Pancreas: Unremarkable, no focal lesions. Spleen: Unremarkable. Adrenals: Unremarkable. Kidneys and ureters: Unremarkable. Bladder: Unremarkable. Reproductive organs: Unremarkable. Bowel: Unremarkable. Lymph nodes Retroperitoneal: Unremarkable. Mesenteric: Unremarkable. Pelvic: Unremarkable. Peritoneum: Normal Abdominal wall: Unremarkable. Bones: Unremarkable. CT angiogram: The abdominal aortic contours appear intact without evidence of aneurysmal dilatation and/or dissection. No significant atherosclerosis is seen. The origins of the celiac axis, superior mesenteric, inferior mesenteric and bilateral renal arteries are patent. IMPRESSION: No acute abnormalities and in particular no evidence of aortic dissection. ACT 112: Negative or not required by law. Electronically signed by: Karl Melendrez M.D. 03/22/2021 1:05 PM Dictated: 03/22/211240 Transcribed: 03/22/211240 CT scan - chest: Radiologist's impression: CT ANGIOGRAM OF THE CHEST COMBO CLINICAL HISTORY: Atypical chest pain. COMPARISON STUDY: Chest x-ray dated 03/22/2021. TECHNIQUE: Before and following the IV administration of 119 cc of Optiray 320, CT angiogram of the chest was performed from the thoracic inlet to the upper a bdomen utilizing the dissection protocol. Images are reviewed in the axial, sagittal, and coronal planes. 3-D MIPS images are created and assessed. IV contrast was administered without complication. A dose lowering technique was utilized adhering to the principles of ALARA. FINDINGS: Thyroid: Imaged portions of the thyroid gland are normal in size and attenuation. Thoracic aorta: No intramural hematoma is seen on the unenhanced series. The thoracic aorta is normal in caliber and demonstrates standard 3-vessel arch anatomy. No dissection is seen. The arch vessels are widely patent. Pulmonary vasculature: The pulmonary trunk is normal in caliber. There are no filling defects identified in the main, lobar, or segmental pulmonary vessels to suggest pulmonary embolus. Heart: The heart is mildly enlarged and without pericardial effusion. Lungs and pleural spaces: The lungs and pleural spaces are clear. The trachea and central airways are patent. Mediastinum: There is no mediastinal lymphadenopathy. Chelsie: Clear. Axillae: There is no axillary lymphadenopathy. Upper abdomen: Partially visualized upper abdominal viscera is within normal limits. Skeletal structures: No lytic or blastic bony lesions are seen. Arthritic change is seen in the shoulders. IMPRESSION: 1. Unremarkable CT angiogram of the thoracic aorta. 2. There is no evidence of pulmonary embolus in the main, lobar, or segmental pulmonary arteries. 3. The lungs are clear. 4. Mild cardiac enlargement. 5. Additional findings as above. ACT 112: Negative or not required by law. Electronically signed by: Reilly Hoover M.D. 03/22/2021 12:49 PM Dictated: 03/22/21 1244 Transcribed: 03/22/21 1244 ECG Data Indication: chest pain Rate (beats per minute): 86 Rhythm: normal sinus Findings: no ST depression, no ST elevation or no prolonged QT Additional Comments: QRS 78 left atrial enlargement. [facility] Narrative 1150: The patient was evaluated in room A4. A complete history and physical exam was performed Cardiac monitoring: An order was placed for continuous cardiac monitoring. The monitor shows a rate of 60 with sinus rhythm 1331: Vital signs stable. Labs and imaging within normal limits including negative troponin and negative CTA of the chest and abdomen, no dissection. Patient will be admitted to the [facility] hospitalist team for chest pain rule out ACS. Discussed with Kate Royal who states to admit to Dr. Krishnamurthy Impression & Plan Chest pain Discharge Plan Visit Data Chief Complaint: Chest Pain Discharge Problem: Chest pain Patient Disposition: Being Evaluated by Hospitalist Forms Stand Alone Forms: [facility] [place] Prescriptions Prescriptions: No Action insulin aspart U-100 [Novolog Flexpen U-100 Insulin] 100 unit/mL (3 mL) Insulin Pen 1 unit SC ACHS Qty: 15 RF: 0 (DME) blood-glucose meter [OneTouch Verio Meter] Misc See Rx Instructions .ROUTE .MEDSUPPLY Qty: 1 RF: 0 (DME) blood sugar diagnostic Strip See Rx Instructions .ROUTE .MEDSUPPLY Qty: 10 RF: 0 (DME) lancets Misc See Rx Instructions .ROUTE .MEDSUPPLY Qty: 100 RF: 0 aspirin 81 mg tablet,delayed release (DR/EC) 81 mg PO DAILY RF: 0 nicotine 14 mg/24 hr patch 24 hour 14 mg topical DAILY RF: 0 metformin 1,000 mg tablet 1,000 mg PO BIDM RF: 0 nitroglycerin 0.4 mg tablet, sublingual 0.4 mg buccal UD RF: 0 rosuvastatin 20 mg tablet 20 mg PO DAILY RF: 0 Ozempic 0.25 mg or 0.5 mg(2 mg/1.5 mL) pen injector 0.25 mg SUBCUT WK RF: 0 Lantus Solostar U-100 Insulin 100 unit/mL (3 mL) insulin pen 35 unit SC HS RF: 0 spironolactone 25 mg Tablet 25 mg PO DAILY Qty: 30 RF: 1 potassium chloride [Klor-Con M20] 20 mEq Tablet,Er Particles/Crystals 20 meq PO DAILY Qty: 10 RF: 0 metoprolol succinate 25 mg Tablet Extended Release 24 Hr 75 mg PO BID17 30 Days Qty: 90 RF: 1 magnesium oxide 400 mg (241.3 mg magnesium) Tablet 400 mg PO QAM Qty: 10 RF: 0 torsemide 20 mg Tablet 20 mg PO DAILY Qty: 30 RF: 1 lisinopril [Zestril] 5 mg Tablet 2.5 mg PO 1700 Qty: 30 RF: 5 Referrals Referrals: Jenny Smith, ALEKS [Primary Care Provider] -
[2021-03-22] MEDS ORDERED: GLUCOSE 40% GEL 15 GM TUBE PO PRN (14:25)
[2021-03-22] MEDS ORDERED: CARBOHYDRATES FOR HYPOGLYCEMIA PO PRN (14:25)
[2021-03-22] MEDS ORDERED: GLUCOSE 10 TABS/TUBE PO PRN (14:25)
[2021-03-22] MEDS ORDERED: DEXTROSE 50% 50 ML SYRINGE IV PRN (14:25)
[2021-03-22] MEDS ORDERED: GLUCAGON FOR INJ 1 MG VIAL SQ PRN (14:25)
[2021-03-22 14:40] LABS: Appearance Urine Clear (Clear); Bilirubin Urine Negative (Negative); Blood Urine Negative (Negative); Color Urine Yellow; Glucose Urine UA 2+ (Negative); Ketones Urine Negative (Negative); Leukocyte Esterase Urine Negative (Negative); Nitrite Urine Negative (Negative); Protein Urine Negative (Negative); Specific Gravity Urine > 1.045 (1.000-1.030); Urobilinogen Urine Negative (Negative); pH Urine 7.5 (4.5-7.5)
[2021-03-22] MEDS ORDERED: INSULIN GLARGINE SOLOSTAR 100 UNITS/ML 3 ML PEN SC ONE (14:48)
--- NOTE | 2021-03-22 16:07 | Cardiology Consultation ---
Date of Consultation March 22, 2021 Assessment & Plan (1) Chest pain: (2) Non-ischemic cardiomyopathy: (3) Combined systolic and diastolic heart failure: (4) Low back pain: (5) Dysuria: 50-year-old patient presents to the ER with low back pain, atypical chest pain, and dysuria with dark-colored urine. Patient's chest pain has resolved. Symptoms atypical for angina and likely musculoskeletal in origin. CTA reviewed without evidence of dissection, aneurysm, or pulmonary embolus. Baseline ECG is abnormal, however, unchanged when compared to prior study. Initial set of cardiac enzymes undetectable. Recent coronary angiography images personally reviewed demonstrating mild nonobstructive CAD. Patient weight is mildly elevated compared to his most recent office visit, however, he states this is within normal range for him on a daily basis noting 7 pound swings depending on when he takes his diuretic and quantity of daily water consumption. He appears compensated/euvolemic currently. Continue current cardiovascular medications including metoprolol succinate 100 mg twice daily, Entresto 97/103mg bid, Aldactone 25mg daily, and torsemide 20mg daily. Low back pain appears to be musculoskeletal in origin, although, renal colic not excluded. Urinalysis concentrated without evidence of blood or infection. Further evaluation as per primary service. History of Present Illness Reason for Consultation: Chest pain, NICM Requesting Physician: Dr. Leone Attending Physician: Dr. Leone History of Present Illness 50-year-old patient presented emergency department with left flank discomfort, chest discomfort, and dark, "rust colored" urine. Patient developed left-sided low back discomfort approximately 24 hours ago. Discomfort waxed and waned throughout the night. Subsequently noted dark- colored and rust colored urine. He was holding his infant grandson with his right arm when he developed a substernal chest discomfort without radiation. Noted some palpitations described as heart pounding and tachycardia. No lightheadedness, dizziness, syncope, or near syncope. Denies any orthopnea, PND, or lower extremity edema. Notes approximately 7-9 pound weight changes on a daily basis. Admits to drinking large amounts of water which and then takes both torsemide and Aldactone with significant diuresis on a daily basis. He was treated with aspirin nitroglycerin. Currently chest pain-free. Currently patient is resting comfortably. Notes mild soreness of his left lumbar region which is reproducible with palpation. Notes burning with urination which has slowly improved. Palpitations have resolved. Telemetry reveals sinus rhythm. No dysrhythmias. Compliant with all medical therapies. Scheduled for single-chamber ICD implantation 03/28/2021. Complex cardiovascular history noted below. Coronary angiography performed in August 2020, images personally reviewed. No significant obstructive coronary disease. Elevated intracardiac filling pressures noted. Patient treated with evidence-based heart failure therapy including Entresto, Aldactone, and metoprolol over the past 6 months. Unfortunately his ejection fraction has not improved. Cardiac problem list: NICM diagnosed 08/2020 EF 30%; remains low despite medical therapy most recent echo 01/2021 25-29% NSVT CAD moderate LI by cath 09/2020 HTN HLD Chronic heart failure with reduced EF, NYHA Class I Allergies Allergy/AdvReac Type Severity Reaction Status Date / Time No Known Allergies Allergy Unverified 03/22/21 13:47 Home Medications Medication Instructions Recorded Confirmed Type aspirin 81 mg tablet,delayed 81 mg PO DAILY 09/06/20 03/22/21 History release insulin glargine 100 unit/mL (3 35 unit SC HS 09/06/20 03/22/21 History mL) subcutaneous pen (Lantus Solostar U-100 Insulin) metformin 1,000 mg tablet 1,000 mg PO BIDM 09/06/20 03/22/21 History nicotine 14 mg/24 hr daily 14 mg TOPICAL DAILY 09/06/20 03/22/21 History transdermal patch nitroglycerin 0.4 mg sublingual 0.4 mg BUCCAL UD 09/06/20 03/22/21 History tablet rosuvastatin 20 mg tablet 20 mg PO DAILY 09/06/20 03/22/21 History semaglutide (Ozempic) 0.25 mg SUBCUT WK 09/06/20 03/22/21 History magnesium oxide 400 mg (241.3 mg 400 mg PO QAM #10 tab 10/08/20 03/22/21 Rx magnesium) tablet spironolactone 25 mg tablet 25 mg PO DAILY #30 tab 10/08/20 03/22/21 Rx torsemide 20 mg tablet 20 mg PO DAILY #30 tab 10/08/20 03/22/21 Rx insulin aspart U-100 100 unit/mL 3 unit SC ACHS 03/22/21 03/22/21 History (3 mL) subcutaneous pen (Novolog Flexpen U-100 Insulin aspart) metoprolol succinate 100 mg 100 mg PO BID 03/22/21 03/22/21 History tablet,extended release 24 hr sacubitril 97 mg-valsartan 103 mg 1 tab PO BID 03/22/21 03/22/21 History tablet (Entresto) Patient History Medical History Combined systolic and diastolic heart failure Diabetes mellitus type 2, uncontrolled History of tobacco use Hypertension Non-ischemic cardiomyopathy LEVON (obstructive sleep apnea) Surgical History No pertinent past surgical history Family History Other Cancer Heart disease Lupus Social History Smoking Status: Former smoker Tobacco Type: Cigarettes Second Hand Exposure: No; Do You Dip or Chew Tobacco: No; Tobacco Cessation Education Requested by Patient: No Hx Alcohol Use: Yes Alcohol type: hard liquor Hx Substance Use: No Preferred Language: Latvian Communication Ability: Effective Locomotive Electrician Required: No Beliefs That Will Affect Care: None Current Living Situation: Family Other Information That Helps Us Care for You: No Feels Safe at Home: Yes Safety Concerns: Feels Safe At This Time Assistive Devices: None Review of Systems Review of Systems: All systems reviewed & are unremarkable except as noted in Subjective Physical Exam Constitutional: well developed and well nourished; no acute distress and not ill appearing Respiratory: normal respiratory effort; no respiratory distress, no labored breathing and no retractions Auscultation: lungs clear to auscultation bilaterally; breath sounds present, no diminished lung sounds, no crackles, no rales, no rhonchi and no wheezes Cardiovascular: Rate/Rhythm: regular rate and regular rhythm Heart Sounds: normal S1 and normal S2; no murmur Vessels: radial pulses present; no JVD and no carotid bruit Extremities: no edema Gastrointestinal (Abdomen): Inspection/Auscultation: abdomen normal to inspection and normal bowel sounds; abdomen not distended Percussion/Palpation: abdomen soft; abdomen nontender, no guarding and abdomen not rigid Neurologic: CN's II-XI intact bilaterally and moves all extremities; no focal motor deficits Motor/Sensory: no tremor Psychiatric: A+Ox3, euthymic affect Results & Data ([facility]) Vital Signs (Past 12 Hours) Vital Signs Temp Pulse Resp BP Pulse Ox 03/22/21 11:22 36.8 C 92 H 18 132/91 100 (1) Chest pain Chest pain type: unspecified Qualified Code(s): R07.9 - Chest pain, unspecified
[2021-03-22] MEDS ORDERED: lisinopril 2.5 MG TAB PO SCH (18:34)
[2021-03-22] MEDS ORDERED: ONDANSETRON INJ 2 MG/ML 2 ML VIAL IV PRN (18:34)
[2021-03-22] MEDS ORDERED: NITROGLYCERIN SL 0.4 MG/TAB TAB SL PRN (18:34)
[2021-03-22] MEDS ORDERED: ACETAMINOPHEN 325 MG TAB PO PRN (18:34)
[2021-03-22] MEDS ORDERED: METOPROLOL SUCC 25MG EXT REL TAB PO SCH (18:34)
[2021-03-22] MEDS ORDERED: POLYETHYLENE (MIRALAX) 17 GM PACK PO PRN (18:34)
[2021-03-22] MEDS: INSULIN ASPART PER UNIT SC SCH ×2 (19:10→20:31)
[2021-03-22] MEDS: INSULIN GLARGINE SOLOSTAR 100 UNITS/ML 3 ML PEN SC SCH (20:30)
[2021-03-22] MEDS: VALSARTAN/SACUBITRIL 103/97MG TAB PO SCH (22:19)
[2021-03-22] MEDS: HEPARIN SOD 5,000 UNIT/0.5 ML VIAL SQ SCH (22:19)
[2021-03-22] MEDS: METOPROLOL SUCC 50MG EXT REL TAB PO SCH (22:19)
[2021-03-23] MEDS: HEPARIN SOD 5,000 UNIT/0.5 ML VIAL SQ SCH ×2 (06:12→14:38)
[2021-03-23] MEDS: INSULIN ASPART PER UNIT SC SCH ×2 (06:12→11:54)
[2021-03-23 06:32] LABS: Hematocrit (blood only) 41.8 % (42-52); Hemoglobin 14.7 g/dL (14.0-18.0); Mean Corpuscular Hemoglobin 36.7 pg (25-34); Mean Corpuscular Hgb Conc 35.2 g/dL (32-36); Mean Corpuscular Volume 104.2 fL (80-100); Platelet Count 170 K/uL (130-400); RDW Coefficient of Variation 12.5 % (11.5-14.5); RDW Standard Deviation 47.8 fL (36.4-46.3); Red Blood Count 4.01 M/uL (4.7-6.1); White Blood Count 8.29 K/uL (4.8-10.8)
[2021-03-23 07:06] LABS: Potassium 3.6 mmol/L (3.5-5.1)
[2021-03-23 07:07] LABS: BUN Creatinine Ratio 13.1 (10-20); Calcium 8.6 mg/dl (8.5-10.1); Creatinine Clr Calc Pharmacy 138.1 ml/min; Est GFR (African American) 121.8 ml/min; Est GFR (Non-African American) 105.1 ml/min
[2021-03-23] MEDS: METOPROLOL SUCC 50MG EXT REL TAB PO SCH (08:03)
[2021-03-23] MEDS: VALSARTAN/SACUBITRIL 103/97MG TAB PO SCH (08:04)
[2021-03-23] MEDS: INSULIN GLARGINE SOLOSTAR 100 UNITS/ML 3 ML PEN SC SCH (08:05)
[2021-03-23] MEDS ORDERED: ROSUVASTATIN CALCIUM 20 MG TAB PO SCH (09:00)
[2021-03-23] MEDS ORDERED: TORSEMIDE 20 MG TAB PO SCH (09:00)
[2021-03-23] MEDS ORDERED: SPIRONOLACTONE 25 MG TAB PO SCH (09:00)
[2021-03-23] MEDS ORDERED: MAGNESIUM OXIDE 400 MG TAB PO SCH (09:00)
[2021-03-23] MEDS ORDERED: ASPIRIN 81 MG ECTAB PO SCH (09:00)
--- NOTE | 2021-03-23 10:07 | Cardiology Progress Note ---
Date of Service March 23, 2021 Assessment & Plan (1) Chest pain: (2) Non-ischemic cardiomyopathy: (3) Combined systolic and diastolic heart failure: (4) Low back pain: (5) Dysuria: Plan: 50-year-old patient presents to the ER with low back pain, atypical chest pain, and dysuria with dark-colored urine. Patient's chest pain has resolved. Chest pain likely musculoskeletal origin. CTA reviewed without evidence of dissection, aneurysm, or pulmonary embolus. Baseline ECG is abnormal, however, unchanged when compared to prior study. Cardiac enzymes are undetectable. Recent coronary angiography images personally reviewed demonstrating mild nonobstructive CAD. He appears compensated/euvolemic. Continue current cardiovascular medications including metoprolol succinate 100 mg twice daily, Entresto 97/103mg bid, Aldactone 25mg daily, and torsemide 20mg daily. No further inpatient cardiovascular testing recommended at this time. Proceed with outpatient single-chamber ICD implantation as scheduled next week. Admission and Anticipated Discharge Date Admission Date: March 22, 2021 Subjective Patient seen and examined at bedside. Episode of positional chest discomfort noted this a.m. when turning to his left side. Currently chest pain-free. No orthopnea or PND. Left sided low back pain improving. No dysrhythmias on telemetry. Offers no new concerns/complaints. Review of Systems Review of Systems: All systems reviewed & are unremarkable except as noted in Subjective Physical Exam Constitutional: well developed and well nourished; no acute distress and not ill appearing Respiratory: normal respiratory effort; no respiratory distress, no labored breathing and no retractions Auscultation: lungs clear to auscultation bilaterally; breath sounds present, no diminished lung sounds, no crackles, no rales, no rhonchi and no wheezes Cardiovascular: Rate/Rhythm: regular rate and regular rhythm Heart Sounds: normal S1 and normal S2; no murmur Vessels: radial pulses present; no JVD and no carotid bruit Extremities: no edema Gastrointestinal (Abdomen): Inspection/Auscultation: abdomen normal to inspection and normal bowel sounds; abdomen not distended Percussion/Palpation: abdomen soft; abdomen nontender, no guarding and abdomen not rigid Neurologic: CN's II-XI intact bilaterally and moves all extremities; no focal motor deficits Motor/Sensory: no tremor Psychiatric: A+Ox3, euthymic affect Results & Data ([place]) Vital Signs (Past 12 Hours) Vital Signs Temp Pulse Pulse Resp BP Pulse Ox 03/23/21 07:41 36.7 C 63 19 119/81 100 03/23/21 03:40 36.8 C 83 18 122/76 97 03/22/21 23:05 36.5 C 84 16 134/76 99 03/22/21 22:16 80 146/81 H 03/22/21 22:13 94 H 20 99 (1) Chest pain Chest pain type: unspecified Qualified Code(s): R07.9 - Chest pain, unspecified
--- NOTE | 2021-03-23 16:34 | Electrocardiogram Report ---
Test Reason : Blood Pressure : / mmHG Vent. Rate : 086 BPM Atrial Rate : 086 BPM P-R Int : 152 ms QRS Dur : 078 ms QT Int : 386 ms P-R-T Axes : 052 -27 038 degrees QTc Int : 461 ms Normal sinus rhythm Possible Left atrial enlargement Inferior infarct (cited on or before 06-SEP-2020) Abnormal ECG When compared with ECG of 07-OCT-2020 05:33, No significant change was found Confirmed by Jairo Neumann ([id number]) on 03/23/2021 4:34:06 PM Referred By: REFERRED SELF Confirmed By:Jairo Neumann
--- NOTE | 2021-03-25 19:46 | Electrocardiogram Report ---
Test Reason : Blood Pressure : / mmHG Vent. Rate : 068 BPM Atrial Rate : 068 BPM P-R Int : 154 ms QRS Dur : 080 ms QT Int : 430 ms P-R-T Axes : 064 -20 047 degrees QTc Int : 457 ms Normal sinus rhythm Inferior infarct (cited on or before 06-SEP-2020) T wave abnormality, consider anterolateral ischemia Abnormal ECG When compared with ECG of 22-MAR-2021 11:41, (unconfirmed) T wave inversion now evident in Anterior leads Confirmed by Jairo Neumann ([id number]) on 03/25/2021 7:46:14 PM Referred By: REFERRED SELF Confirmed By:Jairo Neumann
== END 2021-03-23 17:46 | disposition home or self-care (01) ==
LOC: 2S 11:19 → ED 11:19 → SUATTDRO 13:32 → 2S 18:24
DX: Z79.82 Long term (current) use of aspirin; Z87.891 Personal history of nicotine dependence; I11.0 Hypertensive heart disease with heart failure; M54.50 Low back pain, unspecified; G47.33 Obstructive sleep apnea (adult) (pediatric); R07.9 Chest pain, unspecified; E78.5 Hyperlipidemia, unspecified; I42.8 Other cardiomyopathies; Z79.4 Long term (current) use of insulin; R30.0 Dysuria; I50.40 Unspecified combined systolic (congestive) and diastolic (congestive) heart failure; Z79.84 Long term (current) use of oral hypoglycemic drugs; E11.65 Type 2 diabetes mellitus with hyperglycemia

== ENCOUNTER 2021-04-23 12:50 | Inpatient (IN) ==
[2021-04-23] MEDS ORDERED: ONDANSETRON INJ 2 MG/ML 2 ML VIAL IV STA (13:25)
[2021-04-23] MEDS ORDERED: MoRPHine SULFATE 4 MG/ML 1 ML CARP\\VIAL IV STA (13:25)
--- NOTE | 2021-04-23 13:27 | Emergency Department Note ---
Impression & Plan Acute deep vein thrombosis (DVT) of left upper extremity, Chest pain ADMIT ED Provider Note HPI: The patient is a 51-year-old male with history of nonischemic cardiomyopathy with reduced ejection fraction 30%, status post pacemaker last month through [employer], presents the emergency department with chief complaint of left chest pain and left upper extremity swelling that is been ongoing for the past 3-4 days. Patient states he is also had some intermittent left upper chest pain over the past 3-4 days. Patient states he began to notice some swelling of his left upper extremity during this time. On arrival to the ED he is hemodynamically stable, he is saturating well on room air, he is otherwise in no acute distress on my initial assessment. He does not have any discoloration or neurovascular compromise in his left upper extremity on arrival. ROS: -MSK: Left upper extremity swelling -Cardio: Chest discomfort *10 point review systems was conducted and is otherwise negative unless stated above *Outpatient medications and allergy history reviewed PE: General: Alert, NAD HEENT: Normocephalic, atraumatic Eyes: Extraocular eye movement is intact, no scleral erythema Pulmonary: Clear to auscultation bilaterally, no wheezing Cardio: Regular rate and rhythm GI: Abdomen is soft, nontender : No suprapubic tenderness MSK: No evidence of trauma or malformation of the extremities, there is asymmetrical swelling of the left upper extremity in comparison to the right, motor function is intact Skin: No evidence of rash Neuro: Alert, no focal deficits 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 On arrival to the ED he is hemodynamically stable, he is in no acute distress on my initial assessment he is saturating well on room air. Lab work shows evidence of a negative troponin x1, EKG does not show any ischemic changes, appears similar to previous EKG. CT angiography of the chest was obtained that does not show any evidence of pulmonary embolism, however there is mention of some dilation of the left subclavian vein, ultrasound imaging was therefore obtained of the left upper extremity which shows evidence of an extensive DVT that is occlusive in the left axillary and subclavian veins. There is also mention of thrombus adjacent to the left subclavian pacer lead. I did receive a phone call from the pacer player services representative stating that the patient has not had any events on his pacer/ICD that were reported. Patient denies any syncope or presyncope. On my reassessment the patient is resting comfortably in bed, he remains hemodynamically stable, I discussed the above findings with the patient. He will be initiated on heparin drip and will be admitted to the hospitalist service for further management. Patient was in agreement to this plan. Case was discussed with the on-call [facility] hospitalist, Dr. Thomson and the patient was admitted to a telemetry bed in stable condition. Diagnosis: 1. DVT of the left upper extremity 2. Nonspecific chest discomfort 3. History of pacemaker/AICD 4. History of nonischemic cardiomyopathy with reduced ejection fraction Disposition: Admission Jose Enrique Ramos DO Emergency Medicine Past Med/Surg History Medical History Combined systolic and diastolic heart failure Diabetes mellitus type 2, uncontrolled History of tobacco use Hypertension Non-ischemic cardiomyopathy LEVON (obstructive sleep apnea) Surgical History No pertinent past surgical history Family History Other Cancer Heart disease Lupus Social History Smoking Status: Former smoker Tobacco Type: Cigarettes Second Hand Exposure: No; Hx Alcohol Use: Yes Alcohol type: hard liquor Hx Substance Use: No Preferred Language: German Communication Ability: Effective 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: No Beliefs That Will Affect Care: None Current Living Situation: Family How many Children do You have: 2 Feels Safe at Home: Yes Assistive Devices: None Allergies Allergies Allergy/AdvReac Type Severity Reaction Status Date / Time No Known Allergies Allergy Unverified 03/22/21 13:47 Home Meds Home Medications Medication Instructions Recorded Confirmed aspirin 81 mg tablet,delayed 81 mg PO PM 09/06/20 04/23/21 release insulin glargine 100 unit/mL (3 35 unit SC HS 09/06/20 04/23/21 mL) subcutaneous pen (Lantus Solostar U-100 Insulin) nicotine 14 mg/24 hr daily 14 mg TOPICAL DAILY 09/06/20 04/23/21 transdermal patch nitroglycerin 0.4 mg sublingual 0.4 mg BUCCAL UD 09/06/20 04/23/21 tablet rosuvastatin 20 mg tablet 20 mg PO DAILY 09/06/20 04/23/21 metoprolol succinate 100 mg 100 mg PO BID 03/22/21 04/23/21 tablet,extended release 24 hr sacubitril 97 mg-valsartan 103 mg 1 tab PO BID 03/22/21 04/23/21 tablet (Entresto) acetaminophen 500 mg tablet 2,000 mg PO Q6H PRN 04/23/21 04/23/21 (Tylenol Extra Strength) semaglutide 1 mg/dose (4 mg/3 mL) 1 mg SUBCUT WK 04/23/21 04/23/21 subcutaneous pen injector (Ozempic) torsemide 20 mg tablet 20 mg PO BID 04/23/21 04/23/21 Previous Rx's Medication Instructions Recorded magnesium oxide 400 mg (241.3 mg 400 mg PO QAM #10 tab 10/08/20 magnesium) tablet spironolactone 25 mg tablet 25 mg PO DAILY #30 tab 10/08/20 Results & Data (ED) Vital Signs Vital Signs - 24 hr 04/23/21 12:54 04/23/21 13:07 04/23/21 13:30 Temperature 37.3 C Temperature Source Temporal Artery Scan Pulse Rate 104 H Pulse Rate [Left Radial] Pulse Rate from SpO2 Sensor Pulse Rhythm Regular Pulse Rhythm [Left Radial] Pulse Strength Normal Pulse Strength [Left Radial] Respiratory Rate 18 Respiratory Effort / Characteristics Non-Labored Spontaneous Respiratory Depth Normal Respiratory Pattern Regular Blood Pressure 132/91 140/97 Blood Pressure [Left Arm] Blood Pressure Mean 104 111 Blood Pressure Mean [Left Arm] Blood Pressure Position Sitting Blood Pressure Position [Left Arm] Pulse Oximetry 100 98 Oxygen Delivery Method Room Air Room Air Sepsis Recent Fever Within 48 Hours No Sepsis New/Unexplained Change in Mental Status No Sepsis Action Taken by Nursing No Action Required 04/23/21 13:50 04/23/21 14:00 04/23/21 14:10 Temperature Temperature Source Pulse Rate 89 90 86 Pulse Rate [Left Radial] Pulse Rate from SpO2 Sensor 89 90 87 Pulse Rhythm Pulse Rhythm [Left Radial] Pulse Strength Pulse Strength [Left Radial] Respiratory Rate 12 14 18 Respiratory Effort / Characteristics Respiratory Depth Respiratory Pattern Blood Pressure 143/101 H Blood Pressure [Left Arm] Blood Pressure Mean 115 Blood Pressure Mean [Left Arm] Blood Pressure Position Blood Pressure Position [Left Arm] Pulse Oximetry 99 99 99 Oxygen Delivery Method Sepsis Recent Fever Within 48 Hours Sepsis New/Unexplained Change in Mental Status Sepsis Action Taken by Nursing 04/23/21 14:20 04/23/21 14:30 04/23/21 14:40 Temperature Temperature Source Pulse Rate Pulse Rate [Left Radial] Pulse Rate from SpO2 Sensor 89 89 84 Pulse Rhythm Pulse Rhythm [Left Radial] Pulse Strength Pulse Strength [Left Radial] Respiratory Rate Respiratory Effort / Characteristics Respiratory Depth Respiratory Pattern Blood Pressure 144/105 H Blood Pressure [Left Arm] Blood Pressure Mean 118 Blood Pressure Mean [Left Arm] Blood Pressure Position Blood Pressure Position [Left Arm] Pulse Oximetry 99 98 99 Oxygen Delivery Method Sepsis Recent Fever Within 48 Hours Sepsis New/Unexplained Change in Mental Status Sepsis Action Taken by Nursing 04/23/21 14:50 04/23/21 15:17 04/23/21 15:20 Temperature Temperature Source Pulse Rate 109 H 82 Pulse Rate [Left Radial] Pulse Rate from SpO2 Sensor 84 82 Pulse Rhythm Pulse Rhythm [Left Radial] Pulse Strength Pulse Strength [Left Radial] Respiratory Rate 10 L 23 Respiratory Effort / Characteristics Respiratory Depth Respiratory Pattern Blood Pressure Blood Pressure [Left Arm] Blood Pressure Mean Blood Pressure Mean [Left Arm] Blood Pressure Position Blood Pressure Position [Left Arm] Pulse Oximetry 99 99 Oxygen Delivery Method Sepsis Recent Fever Within 48 Hours Sepsis New/Unexplained Change in Mental Status Sepsis Action Taken by Nursing 04/23/21 15:30 04/23/21 15:40 04/23/21 15:50 Temperature Temperature Source Pulse Rate 81 76 75 Pulse Rate [Left Radial] Pulse Rate from SpO2 Sensor 80 78 75 Pulse Rhythm Pulse Rhythm [Left Radial] Pulse Strength Pulse Strength [Left Radial] Respiratory Rate 19 14 20 Respiratory Effort / Characteristics Respiratory Depth Respiratory Pattern Blood Pressure 174/111 H Blood Pressure [Left Arm] Blood Pressure Mean 132 Blood Pressure Mean [Left Arm] Blood Pressure Position Blood Pressure Position [Left Arm] Pulse Oximetry 97 95 96 Oxygen Delivery Method Sepsis Recent Fever Within 48 Hours Sepsis New/Unexplained Change in Mental Status Sepsis Action Taken by Nursing 04/23/21 16:00 04/23/21 16:10 04/23/21 16:20 Temperature Temperature Source Pulse Rate 76 70 77 Pulse Rate [Left Radial] Pulse Rate from SpO2 Sensor 75 71 79 Pulse Rhythm Pulse Rhythm [Left Radial] Pulse Strength Pulse Strength [Left Radial] Respiratory Rate 18 18 18 Respiratory Effort / Characteristics Respiratory Depth Respiratory Pattern Blood Pressure 167/112 H Blood Pressure [Left Arm] Blood Pressure Mean 130 Blood Pressure Mean [Left Arm] Blood Pressure Position Blood Pressure Position [Left Arm] Pulse Oximetry 96 97 100 Oxygen Delivery Method Sepsis Recent Fever Within 48 Hours Sepsis New/Unexplained Change in Mental Status Sepsis Action Taken by Nursing 04/23/21 16:50 Temperature Temperature Source Pulse Rate Pulse Rate [Left Radial] 79 Pulse Rate from SpO2 Sensor Pulse Rhythm Pulse Rhythm [Left Radial] Regular Pulse Strength Pulse Strength [Left Radial] Normal Respiratory Rate 14 Respiratory Effort / Characteristics Non-Labored Respiratory Depth Normal Respiratory Pattern Blood Pressure Blood Pressure [Left Arm] 149/89 H Blood Pressure Mean Blood Pressure Mean [Left Arm] 109 Blood Pressure Position Blood Pressure Position [Left Arm] Lying Pulse Oximetry 97 Oxygen Delivery Method Room Air Sepsis Recent Fever Within 48 Hours Sepsis New/Unexplained Change in Mental Status Sepsis Action Taken by Nursing Laboratory Data Result diagrams: 04/23/21 14:00 04/23/21 14:00 Lab Results 04/23/21 04/23/21 04/23/21 Range/Units 14:00 14:00 14:00 WBC 7.93 (4.8-10.8) K/uL RBC 4.00 L (4.7-6.1) M/uL Hgb 14.6 (14.0-18.0) g/dL Hct 40.4 L (42-52) % MCV 101.0 H (80-100) fL MCH 36.5 H (25-34) pg MCHC 36.1 H (32-36) g/dL RDW Std Deviation 45.3 (36.4-46.3) fL RDW Coeff of Airam 12.3 (11.5-14.5) % Plt Count 196 (130-400) K/uL MPV 10.0 (7.4-10.4) fL Immature Gran % (Auto) 0.3 % Neut % (Auto) 62.1 % Lymph % (Auto) 26.1 % [place] % (Auto) 8.2 % Eos % (Auto) 3.0 % Baso % (Auto) 0.3 % Neut # (Auto) 4.93 (1.4-6.5) K/uL Lymph # (Auto) 2.07 (1.2-3.4) K/uL [place] # (Auto) 0.65 H (0.11-0.59) K/uL Eos # (Auto) 0.24 (0-0.5) K/uL Baso # (Auto) 0.02 (0-0.2) K/uL Immature Gran # (Auto) 0.02 (0.00-0.02) K/uL PT 10.0 (9.0-12.0) Seconds INR 1.0 (0.9-1.1) APTT 27.6 (21.0-31.0) Seconds PTT Ratio 1.0 Sodium 138 (136-145) mmol/L Potassium 3.5 (3.5-5.1) mmol/L Chloride 104 (98-107) mmol/L Carbon Dioxide 28 (21-32) mmol/L Anion Gap 6 (3-11) BUN 13 (6-23) mg/dl Creatinine 0.81 (0.6-1.4) mg/dl Est Cr Clr Drug Dosing 128.3 ml/min Est GFR ( Amer) 118.4 ml/min Est GFR (Non-Af Amer) 102.2 ml/min BUN/Creatinine Ratio 16.0 (10-20) Glucose 90 (70-99) mg/dl Calcium 9.0 (8.5-10.1) mg/dl Total Bilirubin 0.6 (0.2-1.0) mg/dl AST 13 (13-39) U/L ALT 8 (7-52) U/L Alkaline Phosphatase 52 (34-104) U/L Troponin I < 0.03 (0-0.04) ng/ml Total Protein 6.7 (6.0-8.3) gm/dl Albumin 3.9 (3.4-5.0) gm/dl Globulin 2.8 (2.5-4.0) gm/dl Albumin/Globulin Ratio 1.4 (0.9-2) Lipase 32 (11-82) U/L Administered Medications Discontinued Medications Ioversol (Optiray 320 125ml) 102 ml IV ONCE ONE Stop: 04/23/21 15:13 Last Admin: 04/23/21 15:13 Dose: 102 ml Documented by: [id number] Morphine Sulfate (Morphine Sulfate 4 Mg/Ml 1 Ml Carp\Vial) 4 mg IV NOW STA Stop: 04/23/21 13:26 Last Admin: 04/23/21 13:53 Dose: 4 mg Documented by: [id number] Ondansetron HCl (Ondansetron Inj 2 Mg/Ml 2 Ml Vial) 4 mg IV NOW STA Stop: 04/23/21 13:26 Last Admin: 04/23/21 13:53 Dose: 4 mg Documented by: [id number] Imaging Data Radiologist's Impression: Chest X-Ray 04/23/21 13:07 XR chest 1V portable CLINICAL HISTORY: Atypical chest pain. COMPARISON STUDY: Chest CT and chest radiograph March 22, 2021. FINDINGS: Lung volumes are normal. Lungs are clear. There is no pneumothorax or pleural effusion. Mild cardiomegaly is unchanged. Mediastinal contours are normal. There is no evidence for pulmonary edema. IMPRESSION: No acute cardiopulmonary findings. ACT 112: Negative or not required by law. Electronically signed by: David Modi M.D. 04/23/2021 1:28 PM Extremity Venous Study 04/23/21 13:25 LEFT UPPER EXTREMITY VENOUS DOPPLER ULTRASOUND CLINICAL HISTORY: swelling x 3 days eval for DVT COMPARISON STUDY: Chest CT performed earlier today. TECHNIQUE: Sonography of the deep venous system of the left upper extremity was performed. FINDINGS: There is extensive acute appearing deep venous thrombus within the left upper extremity. Specifically, there is occlusive deep venous thrombus within the left subclavian, axillary and brachial veins. Thrombus adjacent to the left subclavian pacer wire is noted. There is also superficial thrombus within the left basilic vein. IMPRESSION: Extensive acute appearing deep venous thrombus within the left upper extremity with occlusive thrombus within the left subclavian, axillary and brachial veins. Thrombus adjacent to the left subclavian pacer lead. ACT 112: Negative or not required by law. Electronically signed by: David Modi M.D. 04/23/2021 6:58 PM Chest CTA 04/23/21 13:26 CT ANGIOGRAPHY OF THE CHEST, PULMONARY EMBOLUS PROTOCOL CLINICAL HISTORY: Chest pain. COMPARISON STUDY: Chest CT March 22, 2021. Chest radiograph performed earlier today. TECHNIQUE: Following IV administration of 102 mL of Optiray, helical axial images of the chest were obtained utilizing the pulmonary embolus protocol. Maximal intensity projections and sagittal and coronal reformats were viewed on an independent 3D workstation. IV contrast was administered without complication. Automated exposure control was utilized for the study. A dose lowering technique was utilized adhering to the principles of ALARA. CT DOSE: 438.48 mGy.cm FINDINGS: No pulmonary emboli are identified. There is no thoracic aortic dissection. Cardiomegaly is again noted. There is no pericardial effusion. No pneumothorax or pleural effusion is noted. There is no consolidation to suggest pneumonia. There is no thoracic lymphadenopathy. Interval placement of a left subclavian pacer/AICD is noted since CT of March 22, 2021. Note is made of infiltration within the left axilla, including adjacent to the left axillary vessels. Areas of apparent increased attenuation within the left axillary and brachial veins are noted. Vessels appear distended. This may reflect a deep venous thrombus. This could extend into the left subclavian vein, adjacent to the pacer lead. IMPRESSION: 1. No pulmonary emboli identified. 2. Left axillary infiltration and apparent increased attenuation and dilatation of the left axillary and brachial veins which is suspicious for deep venous thrombus. This may extend into left subclavian vein, adjacent to the left subclavian pacer/AICD lead. Left upper extremity venous Doppler ultrasound is recommended for further evaluation. 3. Stable cardiomegaly. ACT 112: Negative or not required by law. Electronically signed by: David Modi M.D. 04/23/2021 3:43 PM Discharge Plan Visit Data Chief Complaint: Chest Pain Stated Complaint: CHEST PAIN/SWELLING, L ARM PAIN/SWOLLEN ED Provider: Jose Enrique Ramos Discharge Problem: Acute deep vein thrombosis (DVT) of left upper extremity, Chest pain Forms Stand Alone Forms: [employer] Prescriptions Prescriptions: No Action aspirin 81 mg tablet,delayed release (DR/EC) 81 mg PO PM RF: 0 nicotine 14 mg/24 hr patch 24 hour 14 mg topical DAILY RF: 0 nitroglycerin 0.4 mg tablet, sublingual 0.4 mg buccal UD RF: 0 rosuvastatin 20 mg tablet 20 mg PO DAILY RF: 0 Lantus Solostar U-100 Insulin 100 unit/mL (3 mL) insulin pen 35 unit SC HS RF: 0 spironolactone 25 mg Tablet 25 mg PO DAILY Qty: 30 RF: 1 magnesium oxide 400 mg (241.3 mg magnesium) Tablet 400 mg PO QAM Qty: 10 RF: 0 Entresto 97-103 mg tablet 1 tab PO BID RF: 0 metoprolol succinate 100 mg tablet extended release 24 hr 100 mg PO BID RF: 0 acetaminophen [Tylenol Extra Strength] 500 mg Tablet 2,000 mg PO Q6H PRN (Reason: Pain) RF: 0 Ozempic 1 mg/dose (4 mg/3 mL) pen injector 1 mg SUBCUT WK RF: 0 torsemide 20 mg tablet 20 mg PO BID RF: 0 Referrals Referrals: Jenny Smith PA-C [Primary Care Provider] - Discharge Problem: Acute deep vein thrombosis (DVT) of left upper extremity Qualifiers: Affected thrombotic vein of extremity: unspecified vein of extremity Qualified Code(s): I82.622 - Acute embolism and thrombosis of deep veins of left upper extremity Chest pain Qualifiers: Chest pain type: unspecified Qualified Code(s): R07.9 - Chest pain, unspecified
--- NOTE | 2021-04-23 13:29 | XRay Report ---
XR chest 1V portable CLINICAL HISTORY: Atypical chest pain. COMPARISON STUDY: Chest CT and chest radiograph March 22, 2021. FINDINGS: Lung volumes are normal. Lungs are clear. There is no pneumothorax or pleural effusion. Mil d cardiomegaly is unchanged. Mediastinal contours are normal. There is no evidence for pulmonary komal a. IMPRESSION: No acute cardiopulmonary findings. ACT 112: Negative or not required by law. Electronically signed by: David Modi M.D. 04/23/2021 1:28 PM
[2021-04-23 14:15] LABS: Basophils # (auto) 0.02 K/uL (0-0.2); Basophils % (auto) 0.3 %; Eosinophils # (auto) 0.24 K/uL (0-0.5); Hematocrit (blood only) 40.4 % (42-52); Hemoglobin 14.6 g/dL (14.0-18.0); Immature Granulocytes # (auto) 0.02 K/uL (0.00-0.02); Immature Granulocytes % (auto) 0.3 %; Lymphocytes # (auto) 2.07 K/uL (1.2-3.4); Lymphocytes % (auto) 26.1 %; Mean Corpuscular Hemoglobin 36.5 pg (25-34); Mean Corpuscular Hgb Conc 36.1 g/dL (32-36); Monocytes # (auto) 0.65 K/uL (0.11-0.59); Monocytes % (auto) 8.2 %; Neutrophils # (auto) 4.93 K/uL (1.4-6.5); Neutrophils % (auto) 62.1 %; Platelet Count 196 K/uL (130-400); RDW Coefficient of Variation 12.3 % (11.5-14.5); RDW Standard Deviation 45.3 fL (36.4-46.3); White Blood Count 7.93 K/uL (4.8-10.8)
[2021-04-23 14:30] LABS: Partial Thromboplastin Time 27.6 Seconds (21.0-31.0)
[2021-04-23 14:43] LABS: Troponin I < 0.03 ng/ml (0-0.04)
[2021-04-23 14:44] LABS: Alanine Aminotransferase 8 U/L (7-52); Albumin Globulin Ratio 1.4 (0.9-2); Albumin Level 3.9 gm/dl (3.4-5.0); Alkaline Phosphatase 52 U/L (34-104); Anion Gap 6 (3-11); Aspartate Aminotransferase 13 U/L (13-39); Bilirubin,Total 0.6 mg/dl (0.2-1.0); Blood Urea Nitrogen 13 mg/dl (6-23); Carbon Dioxide 28 mmol/L (21-32); Chloride 104 mmol/L (98-107); Creatinine Clr Calc Pharmacy 128.3 ml/min; Est GFR (African American) 118.4 ml/min; Est GFR (Non-African American) 102.2 ml/min; Globulin 2.8 gm/dl (2.5-4.0); Glucose 90 mg/dl (70-99); Lipase 32 U/L (11-82); Potassium 3.5 mmol/L (3.5-5.1); Sodium 138 mmol/L (136-145); Total Protein 6.7 gm/dl (6.0-8.3)
[2021-04-23] MEDS ORDERED: OPTIRAY 320 125ml IV ONE (15:12)
--- NOTE | 2021-04-23 15:44 | CT Scan Report ---
CT ANGIOGRAPHY OF THE CHEST, PULMONARY EMBOLUS PROTOCOL CLINICAL HISTORY: Chest pain. COMPARISON STUDY: Chest CT March 22, 2021. Chest radiograph performed earlier today. TECHNIQUE: Following IV administration of 102 mL of Optiray, helical axial images of the chest were o btained utilizing the pulmonary embolus protocol. Maximal intensity projections and sagittal and cor onal reformats were viewed on an independent 3D workstation. IV contrast was administered without co mplication. Automated exposure control was utilized for the study. A dose lowering technique was ut ilized adhering to the principles of ALARA. CT DOSE: 438.48 mGy.cm FINDINGS: No pulmonary emboli are identified. There is no thoracic aortic dissection. Cardiomegaly i s again noted. There is no pericardial effusion. No pneumothorax or pleural effusion is noted. There is no consolidation to suggest pneumonia. There is no thoracic lymphadenopathy. Interval placement of a left subclavian pacer/AICD is noted since CT of March 22, 2021. Note is made of infiltration wi thin the left axilla, including adjacent to the left axillary vessels. Areas of apparent increased at tenuation within the left axillary and brachial veins are noted. Vessels appear distended. This may r eflect a deep venous thrombus. This could extend into the left subclavian vein, adjacent to the pacer lead. IMPRESSION: 1. No pulmonary emboli identified. 2. Left axillary infiltration and apparent increased attenuation and dilatation of the left axillary and brachial veins which is suspicious for deep venous thrombus. This may extend into left subclavian vein, adjacent to the left subclavian pacer/AICD lead. Left upper extremity venous Doppler ultrasoun d is recommended for further evaluation. 3. Stable cardiomegaly. ACT 112: Negative or not required by law. Electronically signed by: David Modi M.D. 04/23/2021 3:43 PM
--- NOTE | 2021-04-23 18:59 | Ultrasound Report ---
LEFT UPPER EXTREMITY VENOUS DOPPLER ULTRASOUND CLINICAL HISTORY: swelling x 3 days eval for DVT COMPARISON STUDY: Chest CT performed earlier today. TECHNIQUE: Sonography of the deep venous system of the left upper extremity was performed. FINDINGS: There is extensive acute appearing deep venous thrombus within the left upper extremity. Sp ecifically, there is occlusive deep venous thrombus within the left subclavian, axillary and brachial veins. Thrombus adjacent to the left subclavian pacer wire is noted. There is also superficial throm bus within the left basilic vein. IMPRESSION: Extensive acute appearing deep venous thrombus within the left upper extremity with occl usive thrombus within the left subclavian, axillary and brachial veins. Thrombus adjacent to the left subclavian pacer lead. ACT 112: Negative or not required by law. Electronically signed by: David Modi M.D. 04/23/2021 6:58 PM
[2021-04-23] MEDS ORDERED: Heparin IV Adult Wt-Based Standard WITH Bolus Protocol IV STA (19:03)
[2021-04-23] MEDS ORDERED: HEPARIN SOD (PORCINE) 1000 UNIT/ML IV ONE ×2 (19:19→19:45)
[2021-04-23] MEDS ORDERED: POTASSIUM CHLORIDE CRTAB 20 MEQ TABCR PO STA (19:28)
[2021-04-23] MEDS: HEPARIN SODIUM/DEXTROSE 25,000 UNITS/500 ML BAG IV SCH (19:56)
--- NOTE | 2021-04-23 20:30 | History & Physical Report ---
Date of Service April 23, 2021 Assessment & Plan (1) Acute deep vein thrombosis (DVT) of left upper extremity: Plan: Recent ICD placement for nonischemic cardiomyopathy LUE pain radiating to the chest HTN, slightly elevated nonobstructive CAD as per records history NSVT DM2 insulin requiring, suboptimal control as of recent hemoglobin A1c 9 last March 2021 Past tobacco abuse on nicotine patch Medical telemetry IV heparin Cardiology consult Re: Post ICD upper extremity DVT Vascular surgery consult in a.m. Re: Extensive LUE DVT causing significant discomfort, role for thrombolytic intervention N.p.o. until patient seen by vascular surgeon in a.m. in anticipation of any procedure. Basal insulin adjusted for n.p.o. status, ISS BG goal 1 10-1 40 DVT prophylaxis. IV heparin Full code Text document was generated using [employer] voice recognition software. It may contain grammatical or spelling errors. Kindly contact undersigned for clarification of any documentation item in question. History of Present Illness Chief Complaint: Left arm pain/swelling, chest pain Primary Care Provider: Jenny Smith PA-C History obtained from patient and records. Medical history significant for chronic systolic heart failure secondary to nonischemic cardiomyopathy (EF 25 to 29%, TTE 2020) status post ICD (03/2021), nonobstructive CAD as per records, history NSVT, HTN, LEVON on BiPAP, pulmonary hypertension, macrocytosis as per records, DM2 insulin requiring, past tobacco abuse. Last confinement March 2021 for chest pain. Patient underwent ICD placement for nonischemic cardiomyopathy at [facility] last March 28, 2021. Well 5 days ago, patient noted left upper extremity swelling with pain going to his chest. No shortness of breath no cough symptoms. No recollection of recent trauma. No fever, no chills. Possible weight gain from heavy arm as per patient. IV heparin started at the ER for LUE DVT. No previous history of blood clots as per patient. 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 Allergies Allergy/AdvReac Type Severity Reaction Status Date / Time No Known Allergies Allergy Unverified 03/22/21 13:47 Home Medications Medication Instructions Recorded Confirmed Type aspirin 81 mg tablet,delayed 81 mg PO PM 09/06/20 04/23/21 History release insulin glargine 100 unit/mL (3 35 unit SC HS 09/06/20 04/23/21 History mL) subcutaneous pen (Lantus Solostar U-100 Insulin) nicotine 14 mg/24 hr daily 14 mg TOPICAL DAILY 09/06/20 04/23/21 History transdermal patch nitroglycerin 0.4 mg sublingual 0.4 mg BUCCAL UD 09/06/20 04/23/21 History tablet rosuvastatin 20 mg tablet 20 mg PO DAILY 09/06/20 04/23/21 History magnesium oxide 400 mg (241.3 mg 400 mg PO QAM #10 tab 10/08/20 04/23/21 Rx magnesium) tablet spironolactone 25 mg tablet 25 mg PO DAILY #30 tab 10/08/20 04/23/21 Rx metoprolol succinate 100 mg 100 mg PO BID 03/22/21 04/23/21 History tablet,extended release 24 hr sacubitril 97 mg-valsartan 103 mg 1 tab PO BID 03/22/21 04/23/21 History tablet (Entresto) acetaminophen 500 mg tablet 2,000 mg PO Q6H PRN 04/23/21 04/23/21 History (Tylenol Extra Strength) semaglutide 1 mg/dose (4 mg/3 mL) 1 mg SUBCUT WK 04/23/21 04/23/21 History subcutaneous pen injector (Ozempic) torsemide 20 mg tablet 20 mg PO BID 04/23/21 04/23/21 History Past Med/Surg History Medical History Combined systolic and diastolic heart failure Diabetes mellitus type 2, uncontrolled History of tobacco use Hypertension Non-ischemic cardiomyopathy LEVON (obstructive sleep apnea) Surgical History No pertinent past surgical history Family History Other Cancer Heart disease Lupus Social History Smoking Status: Former smoker Tobacco Type: Cigarettes Second Hand Exposure: No; Hx Alcohol Use: No Hx Substance Use: No Preferred Language: Grenadian Communication Ability: Effective [employer] Miner Required: No Beliefs That Will Affect Care: None Current Living Situation: Family How many Children do You have: 2 Other Information That Helps Us Care for You: No Feels Safe at Home: Yes Assistive Devices: None Review of Systems Review of Systems: As per HPI, all 10 systems reviewed, all other ROS negative Physical Exam Physical Exam: GENERAL: Comfortable, pleasant, no respiratory distress SKIN: Normal color, warm HEENT: [place] palpebral conjunctivae, no ptosis, dry buccal mucosa NECK : Supple, no tenderness CHEST : CTA, no tenderness HEART : Diminished S1 and 2, no obvious murmurs ABDOMEN: Some distention, nontender EXTREMITIES : Tender LUE swelling, no lower extremity swelling/tenderness NEUROLOGIC : Coherent, no facial asymmetry, no other gross focality Results & Data Results & Data ([facility]) Vital Signs (Past 12 Hours) Vital Signs Temp Pulse Pulse Resp BP BP Pulse Ox 04/23/21 18:00 141/94 H 04/23/21 17:30 141/99 H 04/23/21 17:10 79 21 99 04/23/21 17:00 80 13 193/118 H 99 04/23/21 16:50 79 14 149/89 H 97 04/23/21 16:30 79 13 174/122 H 100 04/23/21 16:20 77 18 100 04/23/21 16:10 70 18 97 04/23/21 16:00 76 18 167/112 H 96 04/23/21 15:50 75 20 96 04/23/21 15:40 76 14 95 04/23/21 15:30 81 19 174/111 H 97 04/23/21 15:20 82 23 99 04/23/21 15:17 109 H 10 L 04/23/21 14:50 99 04/23/21 14:40 99 04/23/21 14:30 144/105 H 98 04/23/21 14:20 99 04/23/21 14:10 86 18 99 04/23/21 14:00 90 14 143/101 H 99 04/23/21 13:50 89 12 99 04/23/21 13:30 140/97 04/23/21 13:07 98 04/23/21 12:54 37.3 C 104 H 18 132/91 100 Laboratory Results Laboratory Results WBC 7.93 K/uL (4.8-10.8) 04/23/21 14:00 RBC 4.00 M/uL (4.7-6.1) L 04/23/21 14:00 Hgb 14.6 g/dL (14.0-18.0) 04/23/21 14:00 Hct 40.4 % (42-52) L 04/23/21 14:00 MCV 101.0 fL (80-100) H 04/23/21 14:00 MCH 36.5 pg (25-34) H 04/23/21 14:00 MCHC 36.1 g/dL (32-36) H 04/23/21 14:00 RDW Std Deviation 45.3 fL (36.4-46.3) 04/23/21 14:00 RDW Coeff of Airam 12.3 % (11.5-14.5) 04/23/21 14:00 Plt Count 196 K/uL (130-400) 04/23/21 14:00 MPV 10.0 fL (7.4-10.4) 04/23/21 14:00 Immature Gran % (Auto) 0.3 % 04/23/21 14:00 Neut % (Auto) 62.1 % 04/23/21 14:00 Lymph % (Auto) 26.1 % 04/23/21 14:00 [place] % (Auto) 8.2 % 04/23/21 14:00 Eos % (Auto) 3.0 % 04/23/21 14:00 Baso % (Auto) 0.3 % 04/23/21 14:00 Neut # (Auto) 4.93 K/uL (1.4-6.5) 04/23/21 14:00 Lymph # (Auto) 2.07 K/uL (1.2-3.4) 04/23/21 14:00 [place] # (Auto) 0.65 K/uL (0.11-0.59) H 04/23/21 14:00 Eos # (Auto) 0.24 K/uL (0-0.5) 04/23/21 14:00 Baso # (Auto) 0.02 K/uL (0-0.2) 04/23/21 14:00 Immature Gran # (Auto) 0.02 K/uL (0.00-0.02) 04/23/21 14:00 PT 10.0 Seconds (9.0-12.0) 04/23/21 14:00 INR 1.0 (0.9-1.1) 04/23/21 14:00 APTT 27.6 Seconds (21.0-31.0) 04/23/21 14:00 PTT Ratio 1.0 04/23/21 14:00 Sodium 138 mmol/L (136-145) 04/23/21 14:00 Potassium 3.5 mmol/L (3.5-5.1) 04/23/21 14:00 Chloride 104 mmol/L (98-107) 04/23/21 14:00 Carbon Dioxide 28 mmol/L (21-32) 04/23/21 14:00 Anion Gap 6 (3-11) 04/23/21 14:00 BUN 13 mg/dl (6-23) 04/23/21 14:00 Creatinine 0.81 mg/dl (0.6-1.4) 04/23/21 14:00 Est Cr Clr Drug Dosing 128.3 ml/min 04/23/21 14:00 Est GFR ( Amer) 118.4 ml/min 04/23/21 14:00 Est GFR (Non-Af Amer) 102.2 ml/min 04/23/21 14:00 BUN/Creatinine Ratio 16.0 (10-20) 04/23/21 14:00 Glucose 90 mg/dl (70-99) 04/23/21 14:00 Calcium 9.0 mg/dl (8.5-10.1) 04/23/21 14:00 Total Bilirubin 0.6 mg/dl (0.2-1.0) 04/23/21 14:00 AST 13 U/L (13-39) 04/23/21 14:00 ALT 8 U/L (7-52) 04/23/21 14:00 Alkaline Phosphatase 52 U/L (34-104) 04/23/21 14:00 Troponin I < 0.03 ng/ml (0-0.04) 04/23/21 14:00 Total Protein 6.7 gm/dl (6.0-8.3) 04/23/21 14:00 Albumin 3.9 gm/dl (3.4-5.0) 04/23/21 14:00 Globulin 2.8 gm/dl (2.5-4.0) 04/23/21 14:00 Albumin/Globulin Ratio 1.4 (0.9-2) 04/23/21 14:00 Lipase 32 U/L (11-82) 04/23/21 14:00 Impressions Chest X-Ray 04/23/21 13:07 XR chest 1V portable CLINICAL HISTORY: Atypical chest pain. COMPARISON STUDY: Chest CT and chest radiograph March 22, 2021. FINDINGS: Lung volumes are normal. Lungs are clear. There is no pneumothorax or pleural effusion. Mild cardiomegaly is unchanged. Mediastinal contours are normal. There is no evidence for pulmonary edema. IMPRESSION: No acute cardiopulmonary findings. ACT 112: Negative or not required by law. Electronically signed by: David Modi M.D. 04/23/2021 1:28 PM Extremity Venous Study 04/23/21 13:25 LEFT UPPER EXTREMITY VENOUS DOPPLER ULTRASOUND CLINICAL HISTORY: swelling x 3 days eval for DVT COMPARISON STUDY: Chest CT performed earlier today. TECHNIQUE: Sonography of the deep venous system of the left upper extremity was performed. FINDINGS: There is extensive acute appearing deep venous thrombus within the left upper extremity. Specifically, there is occlusive deep venous thrombus within the left subclavian, axillary and brachial veins. Thrombus adjacent to the left subclavian pacer wire is noted. There is also superficial thrombus within the left basilic vein. IMPRESSION: Extensive acute appearing deep venous thrombus within the left upper extremity with occlusive thrombus within the left subclavian, axillary and brachial veins. Thrombus adjacent to the left subclavian pacer lead. ACT 112: Negative or not required by law. Electronically signed by: David Modi M.D. 04/23/2021 6:58 PM Chest CTA 04/23/21 13:26 CT ANGIOGRAPHY OF THE CHEST, PULMONARY EMBOLUS PROTOCOL CLINICAL HISTORY: Chest pain. COMPARISON STUDY: Chest CT March 22, 2021. Chest radiograph performed earlier today. TECHNIQUE: Following IV administration of 102 mL of Optiray, helical axial images of the chest were obtained utilizing the pulmonary embolus protocol. Maximal intensity projections and sagittal and coronal reformats were viewed on an independent 3D workstation. IV contrast was administered without complication. Automated exposure control was utilized for the study. A dose lowering technique was utilized adhering to the principles of ALARA. CT DOSE: 438.48 mGy.cm FINDINGS: No pulmonary emboli are identified. There is no thoracic aortic dissection. Cardiomegaly is again noted. There is no pericardial effusion. No pneumothorax or pleural effusion is noted. There is no consolidation to suggest pneumonia. There is no thoracic lymphadenopathy. Interval placement of a left subclavian pacer/AICD is noted since CT of March 22, 2021. Note is made of infiltration within the left axilla, including adjacent to the left axillary vessels. Areas of apparent increased attenuation within the left axillary and brachial veins are noted. Vessels appear distended. This may reflect a deep venous thrombus. This could extend into the left subclavian vein, adjacent to the pacer lead. IMPRESSION: 1. No pulmonary emboli identified. 2. Left axillary infiltration and apparent increased attenuation and dilatation of the left axillary and brachial veins which is suspicious for deep venous thrombus. This may extend into left subclavian vein, adjacent to the left subclavian pacer/AICD lead. Left upper extremity venous Doppler ultrasound is recommended for further evaluation. 3. Stable cardiomegaly. ACT 112: Negative or not required by law. Electronically signed by: David Modi M.D. 04/23/2021 3:43 PM Diagnostic Findings EKG as per my interpretation rate 95, NSR, LAD, LAFB diffuse T wave abnormalities, inferior infarct, PVCs (1) Acute deep vein thrombosis (DVT) of left upper extremity Affected thrombotic vein of extremity: unspecified vein of extremity Qualified Code(s): I82.622 - Acute embolism and thrombosis of deep veins of left upper extremity
[2021-04-23] MEDS ORDERED: GLUCOSE 40% GEL 15 GM TUBE PO PRN (20:37)
[2021-04-23] MEDS ORDERED: CARBOHYDRATES FOR HYPOGLYCEMIA PO PRN (20:37)
[2021-04-23] MEDS ORDERED: LORazepam 0.25 MG/0.5 ML VIAL IV PRN (20:37)
[2021-04-23] MEDS ORDERED: DEXTROSE 50% 50 ML SYRINGE IV PRN (20:37)
[2021-04-23] MEDS ORDERED: GLUCAGON FOR INJ 1 MG VIAL SQ PRN (20:37)
[2021-04-23] MEDS ORDERED: GLUCOSE 10 TABS/TUBE PO PRN (20:37)
[2021-04-23] MEDS ORDERED: PROMETHAZINE HCL 12.5 MG in SODIUM CHLORIDE 0.9% 50 ML IV PRN (20:37)
[2021-04-23] MEDS ORDERED: POTASSIUM CHLORIDE / WTR 10 MEQ/100 ML PLCT IV SCH (21:00)
[2021-04-23] MEDS: INSULIN ASPART PER UNIT SC SCH (21:50)
[2021-04-23] MEDS: METOPROLOL SUCC 50MG EXT REL TAB PO SCH (22:04)
[2021-04-23] MEDS: VALSARTAN/SACUBITRIL 103/97MG TAB PO SCH (22:04)
[2021-04-23] MEDS ORDERED: POTASSIUM CHLORIDE 10 MEQ / 100ML WTR IV ONE (22:23)
[2021-04-23] MEDS ORDERED: ONDANSETRON INJ 2 MG/ML 2 ML VIAL ONE (23:10)
[2021-04-23] MEDS: MoRPHine SULFATE 4 MG/ML 1 ML CARP\\VIAL IV PRN (23:15)
[2021-04-24] MEDS: SODIUM CHLORIDE 0.9% 1000ML 1,000 ML IV SCH (00:53)
[2021-04-24 01:42] LABS: Basophils # (auto) 0.01 K/uL (0-0.2); Basophils % (auto) 0.1 %; Eosinophils # (auto) 0.32 K/uL (0-0.5); Eosinophils % (auto) 4.2 %; Hematocrit (blood only) 37.4 % (42-52); Hemoglobin 13.4 g/dL (14.0-18.0); Immature Granulocytes # (auto) 0.02 K/uL (0.00-0.02); Immature Granulocytes % (auto) 0.3 %; Lymphocytes # (auto) 2.67 K/uL (1.2-3.4); Lymphocytes % (auto) 35.1 %; Mean Corpuscular Hemoglobin 35.9 pg (25-34); Mean Corpuscular Hgb Conc 35.8 g/dL (32-36); Mean Corpuscular Volume 100.3 fL (80-100); Mean Platelet Volume 9.6 fL (7.4-10.4); Monocytes # (auto) 0.67 K/uL (0.11-0.59); Monocytes % (auto) 8.8 %; Neutrophils # (auto) 3.91 K/uL (1.4-6.5); Neutrophils % (auto) 51.5 %; Platelet Count 181 K/uL (130-400); RDW Coefficient of Variation 12.1 % (11.5-14.5); RDW Standard Deviation 44.4 fL (36.4-46.3); Red Blood Count 3.73 M/uL (4.7-6.1)
[2021-04-24 02:03] LABS: BUN Creatinine Ratio 11.8 (10-20); Calcium 8.6 mg/dl (8.5-10.1); Creatinine Clr Calc Pharmacy 152.8 ml/min; Est GFR (African American) 127.3 ml/min; Est GFR (Non-African American) 109.8 ml/min; Potassium 3.2 mmol/L (3.5-5.1)
[2021-04-24 03:03] LABS: Partial Thromboplastin Ratio 5.3
[2021-04-24 03:07] LABS: Partial Thromboplastin Time 138.2 Seconds (21.0-31.0)
[2021-04-24] MEDS: ASPIRIN 81 MG ECTAB PO SCH ×2 (03:13→21:54)
[2021-04-24] MEDS ORDERED: POTASSIUM CHLORIDE CRTAB 20 MEQ TABCR PO STA (07:49)
[2021-04-24] MEDS: INSULIN ASPART PER UNIT SC SCH ×4 (08:00→21:40)
[2021-04-24] MEDS: MoRPHine SULFATE 4 MG/ML 1 ML CARP\\VIAL IV PRN ×3 (09:31→23:41)
[2021-04-24] MEDS: INSULIN GLARGINE SOLOSTAR 100 UNITS/ML 3 ML PEN SC SCH ×2 (09:33→21:48)
--- NOTE | 2021-04-24 09:47 | Electrocardiogram Report ---
Test Reason : Blood Pressure : / mmHG Vent. Rate : 096 BPM Atrial Rate : 096 BPM P-R Int : 148 ms QRS Dur : 082 ms QT Int : 344 ms P-R-T Axes : 069 -22 174 degrees QTc Int : 434 ms Sinus rhythm with occasional Premature ventricular complexes Possible Left atrial enlargement Inferior infarct (cited on or before 06-SEP-2020) T wave abnormality, consider lateral ischemia Abnormal ECG When compared with ECG of 23-MAR-2021 06:07, Premature ventricular complexes are now Present Confirmed by Moshe Ram ([id number]) on 04/24/2021 9:47:27 AM Referred By: ED Confirmed By:Moshe Ram
[2021-04-24] MEDS: NICOTINE 14 MG/24 HR PATCH TD SCH (10:02)
[2021-04-24] MEDS: METOPROLOL SUCC 50MG EXT REL TAB PO SCH ×2 (10:02→21:53)
[2021-04-24] MEDS: ROSUVASTATIN CALCIUM 20 MG TAB PO SCH (10:03)
[2021-04-24] MEDS: SPIRONOLACTONE 25 MG TAB PO SCH (10:03)
[2021-04-24] MEDS: VALSARTAN/SACUBITRIL 103/97MG TAB PO SCH ×2 (10:03→21:53)
--- NOTE | 2021-04-24 11:46 | Cardiology Consultation ---
Date of Consultation April 24, 2021 Assessment & Plan (1) Acute deep vein thrombosis (DVT) of left upper extremity: (2) NICM (nonischemic cardiomyopathy): (3) DM2 (diabetes mellitus, type 2): (4) CAD (coronary artery disease): (5) Hypertension: (6) NSVT (nonsustained ventricular tachycardia): Agree with anticoagulation for left upper extremity DVT, will defer management to primary team. Patient is status post single lead ICD placement but this should not preclude anticoagulation. Otherwise, from a cardiac standpoint patient is on appropriate outpatient guideline directed medical therapy and no changes will be made at this time. History of Present Illness Attending Physician: Brendon Lees MD History of Present Illness Mr. Lee is a very pleasant 51-year-old gentleman who presented to [facility] on 04/23/2021 with complaints of left upper extremity swelling and pain with radiation to his left upper chest. He presented to the emergency department and was found to have left upper extremity DVT and started on appropriate anticoagulation. A CTA of the chest was performed which likely showed no pulmonary emboli. Left upper extremity discomfort not significantly changed since admission. Denies shortness of breath or palpitations. Cardiac problems 1. Heart failure with reduced ejection fraction, NYHA class 2, LVEF 25-29% s/p single lead ICD placement for primary prevention, 03/28/21 2. Nonischemic cardiomyopathy 3. DM2, A1c 11.6%, on insulin and other oral diabetic agents 4. History of Tobacco use 5. Hypertension 6. Severe LEVON, predominantly central with Kenny Renee Respirations and hypoxemia, on BiPAP Allergies Allergy/AdvReac Type Severity Reaction Status Date / Time No Known Allergies Allergy Unverified 03/22/21 13:47 Home Medications Medication Instructions Recorded Confirmed Type aspirin 81 mg tablet,delayed 81 mg PO PM 09/06/20 04/23/21 History release insulin glargine 100 unit/mL (3 35 unit SC HS 09/06/20 04/23/21 History mL) subcutaneous pen (Lantus Solostar U-100 Insulin) nicotine 14 mg/24 hr daily 14 mg TOPICAL DAILY 09/06/20 04/23/21 History transdermal patch nitroglycerin 0.4 mg sublingual 0.4 mg BUCCAL UD 09/06/20 04/23/21 History tablet rosuvastatin 20 mg tablet 20 mg PO DAILY 09/06/20 04/23/21 History magnesium oxide 400 mg (241.3 mg 400 mg PO QAM #10 tab 10/08/20 04/23/21 Rx magnesium) tablet spironolactone 25 mg tablet 25 mg PO DAILY #30 tab 10/08/20 04/23/21 Rx metoprolol succinate 100 mg 100 mg PO BID 03/22/21 04/23/21 History tablet,extended release 24 hr sacubitril 97 mg-valsartan 103 mg 1 tab PO BID 03/22/21 04/23/21 History tablet (Entresto) acetaminophen 500 mg tablet 2,000 mg PO Q6H PRN 04/23/21 04/23/21 History (Tylenol Extra Strength) semaglutide 1 mg/dose (4 mg/3 mL) 1 mg SUBCUT WK 04/23/21 04/23/21 History subcutaneous pen injector (Ozempic) torsemide 20 mg tablet 20 mg PO BID 04/23/21 04/23/21 History Patient History Medical History Chest pain Surgical History No pertinent past surgical history Family History Other Cancer Heart disease Lupus Social History Smoking Status: Former smoker Tobacco Type: Cigarettes Second Hand Exposure: No; Hx Alcohol Use: No Hx Substance Use: No Preferred Language: Indonesian Communication Ability: Effective Business Office Specialist Required: No Beliefs That Will Affect Care: None Current Living Situation: Family How many Children do You have: 2 Other Information That Helps Us Care for You: No Feels Safe at Home: Yes Assistive Devices: Glasses Review of Systems Review of Systems: All systems reviewed & are unremarkable except as noted in HPI & below Physical Exam Physical Exam: General: Awake, alert and oriented x 3. No acute distress. HEENT: Normocephalic, atraumatic. Pupils equal, round and reactive to light and accommodation. Extraocular muscles are intact. Anicteric sclera. Moist mucous membranes. Neck: No JVD. No bruit. Cardiovascular: Regular. Positive S-4. Normal S-1 and S-2. No S-3. No murmurs or rubs. Pulmonary: Clear to auscultation B/L. No rales, rhonchi or wheezing Abdomen: Bowel sounds x 4, soft. No rebound, guarding or tenderness. No organomegaly. Extremities: No clubbing, cyanosis or edema. +2 pedal pulses bilaterally. Skin: Warm and dry. Results & Data ([facility]) Vital Signs (Past 12 Hours) Vital Signs Temp Pulse Pulse Resp BP BP Pulse Ox 04/24/21 09:59 80 18 110/73 04/24/21 07:51 36.9 C 78 20 94/60 L 99 04/24/21 04:00 36.9 C 78 18 109/63 98 04/24/21 00:45 88 04/23/21 23:52 72 14 148/78 H 98 Diagnostic Findings Echo 01/25/2021 The examination is adequate to evaluate the referral indication. The left ventricular cavity size is mildly enlarged. The qualitative LV ejection fraction is 25-29% (severely reduced). There is severe diffuse left ventricular hypokinesis. Mild mitral regurgitation is present. Cardiac catheterization 10/05/2020 at [facility] with Dr. Ortiz Large caliber codominant coronary anatomy Diffuse ectasia with moderate luminal irregularities but no obstructive disease Poorly contractile ventricle with on fluoroscopy Sinus tachycardia Pulmonary hypertension with elevated left heart pressures, narrow pulse pressure consistent with poorly compensated congestive heart failure, marked increase in right heart pressures post coronary angiography Full report scanned in the chart (1) Acute deep vein thrombosis (DVT) of left upper extremity Affected thrombotic vein of extremity: unspecified vein of extremity Qualified Code(s): I82.622 - Acute embolism and thrombosis of deep veins of left upper extremity
[2021-04-24 11:58] LABS: Partial Thromboplastin Time 53.2 Seconds (21.0-31.0)
[2021-04-24] MEDS ORDERED: ALUMINUM/MAGNESIUM SUSP 30 ML UDC PO STA (14:20)
[2021-04-24] MEDS: HEPARIN SODIUM/DEXTROSE 25,000 UNITS/500 ML BAG IV SCH (17:56)
--- NOTE | 2021-04-24 18:28 | Hospitalist Progress Note ---
Date of Service April 24, 2021 Assessment & Plan (1) Acute deep vein thrombosis (DVT) of left upper extremity: Plan: Present on admission with LUE swelling and pain s/p recent ICD placement on 03/28 CTA showed left axillary infiltration and apparent increased attenuation and dilatation of the left axillary and brachial veins which is suspicious for deep venous thrombus. This may extend into left subclavian vein, adjacent to the left subclavian pacer/AICD lead. Venous doppler of LUE showed Extensive acute appearing deep venous thrombus within the left upper extremity with occlusive thrombus within the left subclavian, axillary and brachial veins. Thrombus adjacent to the left subclavian pacer lead. Currently on IV heparin drip Case discussed with vascular surgeon recommended to continue anticoagulant with heparin drip Not a candidate for thrombolytic agents due to recent pacemaker placement as per vascular surgery Will consider to transition to Eliquis on discharge Hypokalemia K 3.2 today K replaced Continue monitor BMP Combined systolic and diastolic heart failure: Non-ischemic cardiomyopathy: Nonsustained ventricular tachycardia: Echo with moderately to severe reduced EF of 30 to 35%. Global hypokinesis. No LVH S/P ICD Placement by Dr. Hutchinson on 03/28 at [facility] Incision scar healing, no redness and drainage Cardiology on board Stable Continue Entresto, Toprol, torsemide, spironolactone Diabetes mellitus type 2, uncontrolled: A1c 11.1 in Jan 2021 Hold home agents Basal/bolus insulin per protocol Will resume metformin after 48hr post contrast from the CTA chest Hypertension Normotensive. Continue home medications LEVON (obstructive sleep apnea): Continue bipap HS History of tobacco use: Recently quit smoking. DVT Ppx: On heparin drip Code status: FULL PCP: Zeynep Dispo: Will discharge once medically stable Admission and Anticipated Discharge Date Admission Date: April 23, 2021 Subjective Pt was seen and examined for follow up of LUE DVT Lying in bed with no acute distress watching football Pt said that pain slightly improved denies any chest pain, palpitation, dizziness and SOB Review of Systems Review of Systems: All systems reviewed & are unremarkable except as noted in Subjective Physical Exam Physical Exam: General- No acute distress Head- atraumatic Eyes- PERRL, EOMI, ENT- oropharynx clear Neck- supple, no JVD Lungs- clear to auscultation Heart- regular rhythm; no murmur Abdomen- normal bowel sounds, soft, nontender Extremities- no calf tenderness Neuro- alert, oriented x 3; PERRL, EOMI; no facial palsy; no dysarthria Skin- warm & dry, pacemaker incision, healing Results & Data Results & Data ([facility]) Vital Signs (Past 12 Hours) Vital Signs Temp Pulse Pulse Resp BP Pulse Ox 04/24/21 15:25 84 04/24/21 15:24 36.5 C 78 20 121/78 99 04/24/21 12:04 37.2 C 76 20 118/79 99 04/24/21 11:48 85 04/24/21 09:59 80 18 110/73 04/24/21 07:51 36.9 C 78 20 94/60 L 99 (1) Acute deep vein thrombosis (DVT) of left upper extremity Affected thrombotic vein of extremity: unspecified vein of extremity Qualified Code(s): I82.622 - Acute embolism and thrombosis of deep veins of left upper extremity
[2021-04-25] MEDS: SODIUM CHLORIDE 0.9% 1000ML 1,000 ML IV SCH (02:15)
[2021-04-25] MEDS: MoRPHine SULFATE 4 MG/ML 1 ML CARP\\VIAL IV PRN ×4 (03:47→19:33)
[2021-04-25] MEDS: VALSARTAN/SACUBITRIL 103/97MG TAB PO SCH ×2 (08:06→21:29)
[2021-04-25] MEDS: NICOTINE 14 MG/24 HR PATCH TD SCH (08:06)
[2021-04-25] MEDS: SPIRONOLACTONE 25 MG TAB PO SCH (08:06)
[2021-04-25] MEDS: METOPROLOL SUCC 50MG EXT REL TAB PO SCH ×2 (08:06→21:29)
[2021-04-25] MEDS: ROSUVASTATIN CALCIUM 20 MG TAB PO SCH (08:06)
[2021-04-25 08:38] LABS: Hematocrit (blood only) 37.9 % (42-52); Hemoglobin 13.7 g/dL (14.0-18.0); Mean Corpuscular Hemoglobin 36.1 pg (25-34); Mean Corpuscular Hgb Conc 36.1 g/dL (32-36); Mean Corpuscular Volume 99.7 fL (80-100); Mean Platelet Volume 10.1 fL (7.4-10.4); Platelet Count 187 K/uL (130-400); RDW Coefficient of Variation 12.2 % (11.5-14.5); RDW Standard Deviation 44.4 fL (36.4-46.3); White Blood Count 7.81 K/uL (4.8-10.8)
[2021-04-25] MEDS: INSULIN ASPART PER UNIT SC SCH ×5 (08:39→21:32)
[2021-04-25] MEDS: INSULIN GLARGINE SOLOSTAR 100 UNITS/ML 3 ML PEN SC SCH ×3 (08:40→21:29)
[2021-04-25 09:04] LABS: Partial Thromboplastin Ratio 2.2
[2021-04-25 09:05] LABS: BUN Creatinine Ratio 12.2 (10-20); Calcium 8.3 mg/dl (8.5-10.1); Est GFR (African American) 122.9 ml/min; Est GFR (Non-African American) 106.1 ml/min; Potassium 4.2 mmol/L (3.5-5.1)
[2021-04-25 09:12] LABS: Partial Thromboplastin Time 56.9 Seconds (21.0-31.0)
--- NOTE | 2021-04-25 11:23 | Cardiology Progress Note ---
Date of Service April 25, 2021 Assessment & Plan (1) Acute deep vein thrombosis (DVT) of left upper extremity: (2) NICM (nonischemic cardiomyopathy): (3) DM2 (diabetes mellitus, type 2): (4) CAD (coronary artery disease): (5) Hypertension: (6) NSVT (nonsustained ventricular tachycardia): Plan: Agree with anticoagulation for left upper extremity DVT Continue heparin for at least 48 hours. At that time, can Transition to Eliquis, but need to verify affordab ility/coverage by his insurance prior to discharge. Otherwise he will need hep to coumadin bridge. Continue all other current medications . Case discussed with Dr. Dodd. Admission and Anticipated Discharge Date Admission Date: April 23, 2021 Supervising Physician Co-Signing Physician Notes Patient seen and examined personally. Assessment as above. Left arm with palpable cord and tenderness. Patient appropriately anticoagulated and comfo rtable Plan as above. Recommend warm compresses for symptom relief consider compression sleeve Subjective Patient resting in bed comfortably. Notes Left upper arm pain and swelling but improved from admission. Denies all other symptoms. no chest pain, dyspnea, palpitations. Review of Systems Review of Systems: All systems reviewed & are unremarkable except as noted in HPI & below Physical Exam Physical Exam: General: Awake, alert and oriented x 3. No acute distress. HEENT: Normocephalic, atraumatic. Pupils equal, round and reactive to light and accommodation. Extraocular muscles are intact. Anicteric sclera. Moist mucous membranes. Neck: No JVD. No bruit. Cardiovascular: Regular. Positive S-4. Normal S-1 and S-2. No S-3. No murmurs or rubs. Pulmonary: Clear to auscultation B/L. No rales, rhonchi or wheezing Abdomen: Bowel sounds x 4, soft. No rebound, guarding or tenderness. No organomegaly. Extremities: No clubbing, cyanosis or edema. +2 pedal pulses bilaterally. left upper extremity swelling Skin: Warm and dry. Results & Data ([facility]) Vital Signs (Past 12 Hours) Vital Signs Temp Pulse Pulse Resp BP Pulse Ox 04/25/21 11:14 36.9 C 86 20 124/92 95 04/25/21 07:58 36.8 C 84 18 116/80 98 04/25/21 07:20 80 04/25/21 04:00 36.7 C 89 18 122/84 97 04/24/21 23:22 75 Laboratory Results 04/25/21 04/25/21 04/25/21 Range/Units 08:08 08:08 08:08 WBC 7.81 (4.8-10.8) K/uL RBC 3.80 L (4.7-6.1) M/uL Hgb 13.7 L (14.0-18.0) g/dL Hct 37.9 L (42-52) % MCV 99.7 (80-100) fL MCH 36.1 H (25-34) pg MCHC 36.1 H (32-36) g/dL RDW Std Deviation 44.4 (36.4-46.3) fL RDW Coeff of Airam 12.2 (11.5-14.5) % Plt Count 187 (130-400) K/uL MPV 10.1 (7.4-10.4) fL APTT 56.9 H* (21.0-31.0) Seconds PTT Ratio 2.2 Sodium 135 L (136-145) mmol/L Potassium 4.2 (3.5-5.1) mmol/L Chloride 106 (98-107) mmol/L Carbon Dioxide 24 (21-32) mmol/L Anion Gap 5 (3-11) BUN 9 (6-23) mg/dl Creatinine 0.74 (0.6-1.4) mg/dl Est Cr Clr Drug Dosing 141.0 ml/min Est GFR ( Amer) 122.9 ml/min Est GFR (Non-Af Amer) 106.1 ml/min BUN/Creatinine Ratio 12.2 (10-20) Glucose 92 (70-99(Fasting)) mg/dl Calcium 8.3 L (8.5-10.1) mg/dl 04/24/21 Range/Units 11:10 WBC (4.8-10.8) K/uL RBC (4.7-6.1) M/uL Hgb (14.0-18.0) g/dL Hct (42-52) % MCV (80-100) fL MCH (25-34) pg MCHC (32-36) g/dL RDW Std Deviation (36.4-46.3) fL RDW Coeff of Airam (11.5-14.5) % Plt Count (130-400) K/uL MPV (7.4-10.4) fL APTT 53.2 H* (21.0-31.0) Seconds PTT Ratio 2.0 Sodium (136-145) mmol/L Potassium (3.5-5.1) mmol/L Chloride (98-107) mmol/L Carbon Dioxide (21-32) mmol/L Anion Gap (3-11) BUN (6-23) mg/dl Creatinine (0.6-1.4) mg/dl Est Cr Clr Drug Dosing ml/min Est GFR ( Amer) ml/min Est GFR (Non-Af Amer) ml/min BUN/Creatinine Ratio (10-20) Glucose (70-99(Fasting)) mg/dl Calcium (8.5-10.1) mg/dl Diagnostic Findings Telemetry reviewed - NSR, no arrhythmias Medications Administered Current Inpatient Medications Aspirin (Aspirin 81 Mg Ectab) 81 mg PO PM [facility] Stop: 05/23/21 23:29 Last Admin: 04/24/21 21:54 Dose: 81 mg Documented by: Dextrose (Dextrose 50% 50 Ml Syringe) 25 - 50 ml IV UD PRN; Protocol PRN Reason: Hypoglycemia Protocol Stop: 05/23/21 20:36 Glucagon (Glucagon For Inj 1 Mg Vial) 1 mg SQ UD PRN; Protocol PRN Reason: Hypoglycemia Protocol Stop: 05/23/21 20:36 Glucose (Glucose 10 Tabs/Tube) 4 - 8 tabs PO UD PRN; Protocol PRN Reason: Hypoglycemia Protocol Stop: 05/23/21 20:36 Glucose (Glucose 40% Gel 15 Gm Tube) 15 - 30 gm PO UD PRN; Protocol PRN Reason: Hypoglycemia Protocol Stop: 05/23/21 20:36 Heparin Sodium/Dextrose (Heparin Sodium/Dextrose) 25,000 units in 500 mls @ 24 mls/hr IV .[id number] [facility]; Protocol Stop: 05/23/21 19:29 Last Titration: 04/24/21 18:55 Dose: 1,200 units/hr, 24 mls/hr Documented by: Promethazine HCl 12.5 mg/ (Sodium Chloride) 50.5 mls @ 202 mls/hr IV Q6H PRN PRN Reason: Nausea And Vomiting Stop: 05/23/21 20:36 Lorazepam (Ativan) 0.25 mg in 0.5 mls @ 0.5 mls/min IV Q4H PRN PRN Reason: Anxiety Stop: 05/23/21 20:36 Sodium Chloride (Nss 1000ml) 1,000 mls @ 40 mls/hr IV .Q24H [facility] Stop: 05/24/21 00:00 Last Admin: 04/25/21 02:15 Dose: 40 mls/hr Documented by: Insulin Aspart (Insulin Aspart Per Unit) 0 units SC ACHS [facility] Stop: 05/23/21 20:59 Last Admin: 04/25/21 08:39 Dose: Not Given Documented by: Insulin Glargine (Insulin Glargine Solostar 100 Units/Ml 3 Ml Pen) 10 units SC BID [facility] Stop: 05/24/21 08:59 Last Admin: 04/25/21 08:40 Dose: 10 units Documented by: Metoprolol Succinate (Metoprolol Succ 50mg Ext Rel Tab) 100 mg PO BID [facility] Stop: 05/23/21 20:59 Last Admin: 04/25/21 08:06 Dose: 100 mg Documented by: Miscellaneous (Carbohydrates For Hypoglycemia ) 15 - 30 gm PO UD PRN PRN Reason: Hypoglycemia Protocol Stop: 05/23/21 20:36 Miscellaneous (Remove Nicoderm Patch) 1 ea N/A DAILY [facility] Stop: 05/24/21 08:59 Last Admin: 04/25/21 08:07 Dose: 1 ea Documented by: Morphine Sulfate (Morphine Sulfate 4 Mg/Ml 1 Ml Carp\Vial) 4 mg IV Q4H PRN PRN Reason: Pain Stop: 05/07/21 20:36 Last Admin: 04/25/21 08:34 Dose: 4 mg Documented by: Nicotine (Nicotine 14 Mg/24 Hr Patch) 14 mg TD DAILY [facility] Stop: 05/24/21 08:59 Last Admin: 04/25/21 08:06 Dose: 14 mg Documented by: Rosuvastatin Calcium (Rosuvastatin Calcium 20 Mg Tab) 20 mg PO DAILY [facility] Stop: 05/24/21 08:59 Last Admin: 04/25/21 08:06 Dose: 20 mg Documented by: Sacubitril/Valsartan (Valsartan/Sacubitril 103/97mg Tab) 1 tab PO BID [facility] Stop: 05/23/21 20:59 Last Admin: 04/25/21 08:06 Dose: 1 tab Documented by: Spironolactone (Spironolactone 25 Mg Tab) 25 mg PO DAILY [facility] Stop: 05/24/21 08:59 Last Admin: 04/25/21 08:06 Dose: 25 mg Documented by: Tramadol HCl (Tramadol Hcl 50 Mg Tablet) 25 - 50 mg PO Q4H PRN PRN Reason: Pain Stop: 05/23/21 20:36 (1) Acute deep vein thrombosis (DVT) of left upper extremity Affected thrombotic vein of extremity: unspecified vein of extremity Qualified Code(s): I82.622 - Acute embolism and thrombosis of deep veins of left upper extremity
[2021-04-25] MEDS: HEPARIN SODIUM/DEXTROSE 25,000 UNITS/500 ML BAG IV SCH (14:27)
[2021-04-25] MEDS: ASPIRIN 81 MG ECTAB PO SCH (21:28)
--- NOTE | 2021-04-25 22:57 | Hospitalist Progress Note ---
Date of Service April 25, 2021 Assessment & Plan (1) Acute deep vein thrombosis (DVT) of left upper extremity: Plan: Present on admission with LUE swelling and pain s/p recent ICD placement on 03/28 CTA showed left axillary infiltration and apparent increased attenuation and dilatation of the left axillary and brachial veins which is suspicious for deep venous thrombus. This may extend into left subclavian vein, adjacent to the left subclavian pacer/AICD lead. Venous doppler of LUE showed Extensive acute appearing deep venous thrombus within the left upper extremity with occlusive thrombus within the left subclavian, axillary and brachial veins. Thrombus adjacent to the left subclavian pacer lead. Currently on IV heparin drip Case discussed with vascular surgeon recommended to continue anticoagulant with heparin drip Not a candidate for thrombolytic agents due to recent pacemaker placement as per vascular surgery. Will cancel the official consult as per Vascular surgery Keep IV heparin drip for 48 hrs, then transition to Eliquis on discharge. Patient is not interested to do the Coumadin. cost for Eliquis that will be $125 per month Okay to apply warm compress for symptom management Hypokalemia K 34.2 today Stable Combined systolic and diastolic heart failure: Non-ischemic cardiomyopathy: Nonsustained ventricular tachycardia: Echo with moderately to severe reduced EF of 30 to 35%. Global hypokinesis. No LVH S/P ICD Placement by Dr. Hutchinson on 03/28 at [facility] Incision scar healing, no redness and drainage Cardiology on board Stable Continue Entresto, Toprol, torsemide, spironolactone Diabetes mellitus type 2, uncontrolled: A1c 11.1 in Jan 2021 Hold home agents Basal/bolus insulin per protocol Will resume metformin after 48hr post contrast from the CTA chest Hypertension Normotensive. Continue home medications LEVON (obstructive sleep apnea): Continue bipap HS History of tobacco use: Recently quit smoking. DVT Ppx: On heparin drip Code status: FULL PCP: Zeynep Dispo: Possible discharge tomorrow Admission and Anticipated Discharge Date Admission Date: April 23, 2021 Subjective Pt was seen and examined for follow up of LUE DVT Lying in bed with no acute distress Pt said that pain improved with the narcotic denies any chest pain, palpitation, dizziness and SOB Review of Systems Review of Systems: All systems reviewed & are unremarkable except as noted in Subjective Physical Exam Physical Exam: General- No acute distress Head- atraumatic Eyes- PERRL, EOMI, ENT- oropharynx clear Neck- supple, no JVD Lungs- clear to auscultation Heart- regular rhythm; no murmur Abdomen- normal bowel sounds, soft, nontender Extremities- no calf tenderness Neuro- alert, oriented x 3; PERRL, EOMI; no facial palsy; no dysarthria Skin- warm & dry, pacemaker incision, healing Results & Data Results & Data ([facility]) Vital Signs (Past 12 Hours) Vital Signs Temp Pulse Pulse Pulse Resp BP Pulse Ox 04/25/21 19:20 37.2 C 87 18 114/79 97 04/25/21 15:14 80 04/25/21 15:10 36.9 C 81 20 115/79 98 04/25/21 11:14 36.9 C 86 20 124/92 95 (1) Acute deep vein thrombosis (DVT) of left upper extremity Affected thrombotic vein of extremity: unspecified vein of extremity Qualified Code(s): I82.622 - Acute embolism and thrombosis of deep veins of left upper extremity
[2021-04-26] MEDS: SODIUM CHLORIDE 0.9% 1000ML 1,000 ML IV SCH (03:40)
[2021-04-26] MEDS: MoRPHine SULFATE 4 MG/ML 1 ML CARP\\VIAL IV PRN ×3 (05:27→22:05)
[2021-04-26] MEDS ORDERED: LORATADINE 10 MG TAB PO ONE (05:54)
[2021-04-26 06:10] LABS: Basophils # (auto) 0.01 K/uL (0-0.2); Basophils % (auto) 0.1 %; Eosinophils % (auto) 4.2 %; Hematocrit (blood only) 40.2 % (42-52); Hemoglobin 14.5 g/dL (14.0-18.0); Immature Granulocytes # (auto) 0.01 K/uL (0.00-0.02); Immature Granulocytes % (auto) 0.1 %; Lymphocytes # (auto) 2.42 K/uL (1.2-3.4); Mean Corpuscular Hemoglobin 35.8 pg (25-34); Mean Corpuscular Hgb Conc 36.1 g/dL (32-36); Mean Corpuscular Volume 99.3 fL (80-100); Mean Platelet Volume 10.1 fL (7.4-10.4); Monocytes # (auto) 0.66 K/uL (0.11-0.59); Monocytes % (auto) 9.3 %; Neutrophils # (auto) 3.72 K/uL (1.4-6.5); Neutrophils % (auto) 52.3 %; Platelet Count 205 K/uL (130-400); RDW Standard Deviation 43.9 fL (36.4-46.3); Red Blood Count 4.05 M/uL (4.7-6.1); White Blood Count 7.12 K/uL (4.8-10.8)
[2021-04-26 06:21] LABS: Partial Thromboplastin Ratio 1.3; Partial Thromboplastin Time 32.9 Seconds (21.0-31.0)
[2021-04-26] MEDS ORDERED: HEPARIN SOD (PORCINE) 1000 UNIT/ML IV ONE (07:11)
[2021-04-26] MEDS ORDERED: HEPARIN IV BOLUS 3,000 UNITS in SYRINGE 0 ML IV SCH (07:30)
[2021-04-26] MEDS: METOPROLOL SUCC 50MG EXT REL TAB PO SCH ×2 (07:54→20:22)
[2021-04-26] MEDS: SPIRONOLACTONE 25 MG TAB PO SCH (07:55)
[2021-04-26] MEDS: VALSARTAN/SACUBITRIL 103/97MG TAB PO SCH ×2 (07:55→20:22)
[2021-04-26] MEDS: ROSUVASTATIN CALCIUM 20 MG TAB PO SCH (07:55)
[2021-04-26] MEDS: NICOTINE 14 MG/24 HR PATCH TD SCH (07:55)
[2021-04-26] MEDS: traMADol HCL 50 MG TABLET PO PRN ×2 (08:02→23:11)
[2021-04-26] MEDS: INSULIN GLARGINE SOLOSTAR 100 UNITS/ML 3 ML PEN SC SCH ×2 (08:03→20:22)
[2021-04-26] MEDS: INSULIN ASPART PER UNIT SC SCH ×4 (08:03→20:23)
--- NOTE | 2021-04-26 08:42 | Cardiology Progress Note ---
Date of Service April 26, 2021 Assessment & Plan (1) Acute deep vein thrombosis (DVT) of left upper extremity: (2) NICM (nonischemic cardiomyopathy): (3) DM2 (diabetes mellitus, type 2): (4) CAD (coronary artery disease): (5) Hypertension: (6) NSVT (nonsustained ventricular tachycardia): Plan: Agree with anticoagulation for left upper extremity DVT Okay to transition to Eliquis. Dosing recommendation of 10 mg twice daily x7 days then transition to 5 mg twice daily Patient was given a co-pay card for Eliquis. He does not wish to discuss Coumadin. Recommend warm compresses for symptom relief, can consider compression sleeve. Continue all other current medications. No further cardiology recommendations prior to discharge. Follow up with cardiology as an outpatient in about 4 weeks. Admission and Anticipated Discharge Date Admission Date: April 23, 2021 Supervising Physician Co-Signing Physician Notes Patient seen and examined the bedside. Continues to report left arm discomfort and swelling. Telemetry reveals sinus rhythm with occasional premature ventricular complexes. Patient notes occasional palpitations. Denies orthopnea or PND. No lower extremity edema. PE: VSS. Gen: NAD AAO x3. Heart: Regular rhythm, normal S1-S2, no murmur. Lungs: Clear bilateral, no rales, rhonchi, wheeze. Extremities: + Left upper extremity edema. A/P: Transition patient from IV heparin to Eliquis 10 mg twice daily for 7 days then 5 mg twice daily. Continue other cardiovascular medications as previously ordered. Subjective Resting comfortably in bed. Denies any exertional chest pain. Does note msk discomfort of the left chest/deltoid/and trap. +Discomfort in the left upper arm, swelling continues to improve. No shortness of breath. No shortness of breath, palpitations, dizziness, syncope or near syncope. No orthopnea, PND, or increased lower extremity edema. No fever, chills, cough, hematochezia, melena, or hemoptysis. Remains on heparin. Patient notes he is hopeful to transition to Eliquis and go home today. Patient will be 48 hours on heparin 04/26 at 1930. 04/26 Labs stable. 04/[address]- no evidence of PE LUE duplex 04/23- Extensive acute appearing deep venous thrombus within the left upper extremity with occlusive thrombus within the left subclavian, axillary and brachial veins. Thrombus adjacent to the left subclavian pacer lead Tele: SR with PVCs, 80s Weight: 96.7 kg Review of Systems Review of Systems: All systems reviewed & are unremarkable except as noted in HPI & below Physical Exam Physical Exam: General: No acute distress. A+Ox3. HEENT: Normocephalic. Atraumatic. Conjunctiva and sclera clear. NECK: No carotid bruits. No JVD. Carotid upstrokes are brisk. Heart: RRR. S1 and S2 noted without murmur, rubs, gallops. PMI non displaced. Lungs: Clear to auscultation. No wheezes, rhonchi, rales. Abdomen: Normal bowel sounds. Soft. Nontender. No masses or organomegaly. No abdominal bruits. Extremities: No edema. No clubbing or cyanosis. LUE swelling Pulses: radial=2/4, posterior tibial=2/4, dorsalis pedis = 2/4. NEURO: No focal deficits. PSYCH: Normal. Results & Data ([facility]) Vital Signs (Past 12 Hours) Vital Signs Temp Pulse Pulse Resp BP Pulse Ox 04/26/21 07:59 37.0 C 84 20 109/70 98 04/26/21 07:36 85 04/25/21 23:27 36.6 C 84 18 131/92 97 04/25/21 22:19 79 Laboratory Results 04/26/21 04/26/21 04/25/21 Range/Units 05:33 05:33 08:08 WBC 7.12 (4.8-10.8) K/uL RBC 4.05 L (4.7-6.1) M/uL Hgb 14.5 (14.0-18.0) g/dL Hct 40.2 L (42-52) % MCV 99.3 (80-100) fL MCH 35.8 H (25-34) pg MCHC 36.1 H (32-36) g/dL RDW Std Deviation 43.9 (36.4-46.3) fL RDW Coeff of Airam 12.0 (11.5-14.5) % Plt Count 205 (130-400) K/uL MPV 10.1 (7.4-10.4) fL Immature Gran % (Auto) 0.1 % Neut % (Auto) 52.3 % Lymph % (Auto) 34.0 % [place] % (Auto) 9.3 % Eos % (Auto) 4.2 % Baso % (Auto) 0.1 % Neut # (Auto) 3.72 (1.4-6.5) K/uL Lymph # (Auto) 2.42 (1.2-3.4) K/uL [place] # (Auto) 0.66 H (0.11-0.59) K/uL Eos # (Auto) 0.30 (0-0.5) K/uL Baso # (Auto) 0.01 (0-0.2) K/uL Immature Gran # (Auto) 0.01 (0.00-0.02) K/uL APTT 32.9 H (21.0-31.0) Seconds PTT Ratio 1.3 Sodium 135 L (136-145) mmol/L Potassium 4.2 (3.5-5.1) mmol/L Chloride 106 (98-107) mmol/L Carbon Dioxide 24 (21-32) mmol/L Anion Gap 5 (3-11) BUN 9 (6-23) mg/dl Creatinine 0.74 (0.6-1.4) mg/dl Est Cr Clr Drug Dosing 141.0 ml/min Est GFR ( Amer) 122.9 ml/min Est GFR (Non-Af Amer) 106.1 ml/min BUN/Creatinine Ratio 12.2 (10-20) Glucose 92 (70-99(Fasting)) mg/dl Calcium 8.3 L (8.5-10.1) mg/dl 04/25/21 Range/Units 08:08 WBC (4.8-10.8) K/uL RBC (4.7-6.1) M/uL Hgb (14.0-18.0) g/dL Hct (42-52) % MCV (80-100) fL MCH (25-34) pg MCHC (32-36) g/dL RDW Std Deviation (36.4-46.3) fL RDW Coeff of Airam (11.5-14.5) % Plt Count (130-400) K/uL MPV (7.4-10.4) fL Immature Gran % (Auto) % Neut % (Auto) % Lymph % (Auto) % [place] % (Auto) % Eos % (Auto) % Baso % (Auto) % Neut # (Auto) (1.4-6.5) K/uL Lymph # (Auto) (1.2-3.4) K/uL [place] # (Auto) (0.11-0.59) K/uL Eos # (Auto) (0-0.5) K/uL Baso # (Auto) (0-0.2) K/uL Immature Gran # (Auto) (0.00-0.02) K/uL APTT 56.9 H* (21.0-31.0) Seconds PTT Ratio 2.2 Sodium (136-145) mmol/L Potassium (3.5-5.1) mmol/L Chloride (98-107) mmol/L Carbon Dioxide (21-32) mmol/L Anion Gap (3-11) BUN (6-23) mg/dl Creatinine (0.6-1.4) mg/dl Est Cr Clr Drug Dosing ml/min Est GFR ( Amer) ml/min Est GFR (Non-Af Amer) ml/min BUN/Creatinine Ratio (10-20) Glucose (70-99(Fasting)) mg/dl Calcium (8.5-10.1) mg/dl (1) Acute deep vein thrombosis (DVT) of left upper extremity Affected thrombotic vein of extremity: unspecified vein of extremity Qualified Code(s): I82.622 - Acute embolism and thrombosis of deep veins of left upper extremity
--- NOTE | 2021-04-26 11:53 | Hospitalist Progress Note ---
Date of Service April 26, 2021 Assessment & Plan (1) Acute deep vein thrombosis (DVT) of left upper extremity: Plan: Present on admission with LUE swelling and pain s/p recent ICD placement on 03/28 CTA showed left axillary infiltration and apparent increased attenuation and dilatation of the left axillary and brachial veins which is suspicious for deep venous thrombus. This may extend into left subclavian vein, adjacent to the left subclavian pacer/AICD lead. Venous doppler of LUE showed Extensive acute appearing deep venous thrombus within the left upper extremity with occlusive thrombus within the left subclavian, axillary and brachial veins. Thrombus adjacent to the left subclavian pacer lead. Currently on IV heparin drip Case discussed with vascular surgeon recommended to continue anticoagulant with heparin drip Not a candidate for thrombolytic agents due to recent pacemaker placement as per vascular surgery. Cancelled the official consult as per Vascular surgery Keep IV heparin drip for 48 hrs, then transition to Eliquis on discharge. Patient is not interested to do the Coumadin. 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 Global hypokinesis. No LVH S/P ICD Placement by Dr. Hutchinson on 03/28 at [facility] Incision scar healing, no redness and drainage Cardiology on board Continue Entresto, Toprol, torsemide, spironolactone No further cardiology recommendations prior to discharge as per cardiology Follow up with cardiology as an outpatient in about 4 weeks. Stable Diabetes mellitus type 2, uncontrolled: A1c 11.1 in Jan 2021 Hold home agents Basal/bolus insulin per protocol Ok to resume Metformin on discharge Hypertension Normotensive. Continue home medications LEVON (obstructive sleep apnea): Continue bipap HS History of tobacco use: Recently quit smoking. DVT Ppx: On heparin drip Code status: FULL PCP: Zeynep Dispo: Discharge home today Follow up with cardiology as an outpatient in about 4 we Follow up with your PCP within 1 week Admission and Anticipated Discharge Date Admission Date: April 23, 2021 Subjective Pt was seen and examined for follow up of LUE DVT Lying in bed with no acute distress LUE pain and swelling improved Cost for Ernie will be $125/month He said that is ok with the cost and does not want to talk about coumadin denies any chest pain, palpitation, dizziness and SOB Review of Systems Review of Systems: All systems reviewed & are unremarkable except as noted in Subjective Physical Exam Physical Exam: General- No acute distress Head- atraumatic Eyes- PERRL, EOMI, ENT- oropharynx clear Neck- supple, no JVD Lungs- clear to auscultation Heart- regular rhythm; no murmur Abdomen- normal bowel sounds, soft, nontender Extremities- no calf tenderness Neuro- alert, oriented x 3; PERRL, EOMI; no facial palsy; no dysarthria Skin- warm & dry, pacemaker incision, healing Results & Data Results & Data ([facility]) Vital Signs (Past 12 Hours) Vital Signs Temp Pulse Pulse Resp BP Pulse Ox 04/26/21 10:57 37.2 C 83 18 127/90 100 04/26/21 07:59 37.0 C 84 20 109/70 98 04/26/21 07:36 85 (1) Acute deep vein thrombosis (DVT) of left upper extremity Affected thrombotic vein of extremity: unspecified vein of extremity Qualified Code(s): I82.622 - Acute embolism and thrombosis of deep veins of left upper extremity
[2021-04-26] MEDS: HEPARIN SODIUM/DEXTROSE 25,000 UNITS/500 ML BAG IV SCH ×2 (12:16→13:11)
[2021-04-26 13:45] LABS: Partial Thromboplastin Ratio 2.7
[2021-04-26 13:49] LABS: Partial Thromboplastin Time 69.8 Seconds (21.0-31.0)
[2021-04-26] MEDS: APIXABAN 5 MG TABLET PO SCH ×2 (13:56→20:21)
[2021-04-26] MEDS: ASPIRIN 81 MG ECTAB PO SCH (20:22)
[2021-04-27] MEDS: MoRPHine SULFATE 4 MG/ML 1 ML CARP\\VIAL IV PRN ×2 (04:29→10:39)
--- NOTE | 2021-04-27 08:21 | Cardiology Progress Note ---
Date of Service April 27, 2021 Assessment & Plan (1) Acute deep vein thrombosis (DVT) of left upper extremity: (2) NICM (nonischemic cardiomyopathy): (3) DM2 (diabetes mellitus, type 2): (4) CAD (coronary artery disease): (5) Hypertension: (6) NSVT (nonsustained ventricular tachycardia): Plan: Continue Eliquis. Dosing recommendation of 10 mg twice daily x7 days then transition to 5 mg twice daily Patient was given a co-pay card for Eliquis. He does not wish to discuss Coumadin. Recommend warm compresses for symptom relief, can consider compression sleeve. Continue all other current medications. Okay for discharge from a cardiac standpoint. Follow up with cardiology as an outpatient in about 4 weeks. Admission and Anticipated Discharge Date Admission Date: April 23, 2021 Supervising Physician Co-Signing Physician Notes Patient seen and examined the bedside. Left arm swelling unchanged. Discomfort reported overnight making sleep difficult. Telemetry reveals sinus rhythm with occasional premature ventricular complexes. No recurrent palpitations or chest discomfort overnight. Denies orthopnea or PND. No lower extremity edema. PE: VSS. Gen: NAD AAO x3. Heart: Regular rhythm, normal S1-S2, no murmur. Lungs: Clear bilateral, no rales, rhonchi, wheeze. Extremities: + Left upper e xtremity edema. A/P: Transition patient from IV heparin to Eliquis 10 mg twice daily for 7 days then 5 mg twice daily. Continue other cardiovascular medications as previously ordered. Outpatient cardiology follow-up in 4 weeks. Subjective Transitioned from heparin to Eliquis over night. Patient resting in bed comfortably. Notes Left upper arm discomfort and swelling but improved from admission. Denies all other symptoms. no chest pain, dyspnea, palpitations.Hopeful to go home today. Review of Systems Review of Systems: All systems reviewed & are unremarkable except as noted in HPI & below Physical Exam Physical Exam: General: No acute distress. A+Ox3. HEENT: Normocephalic. Atraumatic. Conjunctiva and sclera clear. NECK: No carotid bruits. No JVD. Carotid upstrokes are brisk. Heart: RRR. S1 and S2 noted without murmur, rubs, gallops. PMI non displaced. Lungs: Clear to auscultation. No wheezes, rhonchi, rales. Abdomen: Normal bowel sounds. Soft. Nontender. No masses or organomegaly. No abdominal bruits. Extremities: No edema. No clubbing or cyanosis. LUE swelling Pulses: radial=2/4, posterior tibial=2/4, dorsalis pedis = 2/4. NEURO: No focal deficits. PSYCH: Normal. Results & Data ([facility]) Vital Signs (Past 12 Hours) Vital Signs Temp Pulse Resp BP Pulse Ox 04/27/21 07:30 36.7 C 74 16 119/81 100 04/26/21 23:05 37.0 C 86 18 132/96 98 Laboratory Results 04/27/21 04/26/21 04/26/21 Range/Units 08:05 20:04 16:14 APTT (21.0-31.0) Seconds PTT Ratio POC Glucose 92 91 83 (70-99) mg/dl 04/26/21 04/26/21 Range/Units 12:58 11:19 APTT 69.8 H* (21.0-31.0) Seconds PTT Ratio 2.7 POC Glucose 96 (70-99) mg/dl (1) Acute deep vein thrombosis (DVT) of left upper extremity Affected thrombotic vein of extremity: unspecified vein of extremity Qualified Code(s): I82.622 - Acute embolism and thrombosis of deep veins of left upper extremity
[2021-04-27] MEDS: APIXABAN 5 MG TABLET PO SCH (10:24)
[2021-04-27] MEDS: NICOTINE 14 MG/24 HR PATCH TD SCH (10:24)
[2021-04-27] MEDS: METOPROLOL SUCC 50MG EXT REL TAB PO SCH (10:24)
[2021-04-27] MEDS: ROSUVASTATIN CALCIUM 20 MG TAB PO SCH (10:26)
[2021-04-27] MEDS: SPIRONOLACTONE 25 MG TAB PO SCH (10:26)
[2021-04-27] MEDS: VALSARTAN/SACUBITRIL 103/97MG TAB PO SCH (10:26)
[2021-04-27] MEDS: INSULIN ASPART PER UNIT SC SCH (10:29)
[2021-04-27] MEDS: INSULIN GLARGINE SOLOSTAR 100 UNITS/ML 3 ML PEN SC SCH (10:34)
--- NOTE | 2021-04-27 11:04 | Discharge Summary ---
Date of Service April 27, 2021 Admission HPI Per Admitting Provider History obtained from patient and records. Medical history significant for chronic systolic heart failure secondary to nonischemic cardiomyopathy (EF 25 to 29%, TTE 2020) status post ICD (03/2021), nonobstructive CAD as per records, history NSVT, HTN, LEVON on BiPAP, pulmonary hypertension, macrocytosis as per records, DM2 insulin requiring, past tobacco abuse. Last confinement March 2021 for chest pain. Patient underwent ICD placement for nonischemic cardiomyopathy at [facility] last March 28, 2021. Well 5 days ago, patient noted left upper extremity swelling with pain going to his chest. No shortness of breath no cough symptoms. No recollection of recent trauma. No fever, no chills. Possible weight gain from heavy arm as per patient. IV heparin started at the ER for LUE DVT. No previous history of blood clots as per patient. 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 Admission Exam Per Admitting Provider GENERAL: Comfortable, pleasant, no respiratory distress SKIN: Normal color, warm HEENT: Crane palpebral conjunctivae, no ptosis, dry buccal mucosa NECK : Supple, no tenderness CHEST : CTA, no tenderness HEART : Diminished S1 and 2, no obvious murmurs ABDOMEN: Some distention, nontender EXTREMITIES : Tender LUE swelling, no lower extremity swelling/tenderness NEUROLOGIC : Coherent, no facial asymmetry, no other gross focality Principal Diagnosis Acute deep vein thrombosis (DVT) of left upper extremity: Hypokalemia Combined systolic and diastolic heart failure: Non-ischemic cardiomyopathy: Nonsustained ventricular tachycardia: Diabetes mellitus type 2, uncontrolled: Hypertension LEVON (obstructive sleep apnea): History of tobacco use: Discharge Exam Gen: WD/WN, NAD, A&O x3 HEENT: Normocephalic, atraumatic, conjunctivae moist, sclerae anicteric, mucous membranes moist. Lung: Clear to Auscultation bilaterally, no wheezes/rales/rhonchi Heart: Regular rate, regular rhythm, no murmurs, rubs, or gallops, pacemaker incision healing Abdomen: Soft, NT, ND +BS x 4 Extremities: Left upper extremity edema noted, mild warmth, no erythema Skin: Warm, no rash, negative turgor. Discharge Data Allergies Allergy/AdvReac Type Severity Reaction Status Date / Time No Known Allergies Allergy Unverified 03/22/21 13:47 Consultations 04/23/21 19:18 ED Decision to Admit Stat 04/24/21 05:04 Consult Cardiology Routine Ordered Studies Chest X-Ray 04/23/21 13:07 XR chest 1V portable CLINICAL HISTORY: Atypical chest pain. COMPARISON STUDY: Chest CT and chest radiograph March 22, 2021. FINDINGS: Lung volumes are normal. Lungs are clear. There is no pneumothorax or pleural effusion. Mild cardiomegaly is unchanged. Mediastinal contours are normal. There is no evidence for pulmonary edema. IMPRESSION: No acute cardiopulmonary findings. ACT 112: Negative or not required by law. Electronically signed by: David Modi M.D. 04/23/2021 1:28 PM Extremity Venous Study 04/23/21 13:25 LEFT UPPER EXTREMITY VENOUS DOPPLER ULTRASOUND CLINICAL HISTORY: swelling x 3 days eval for DVT COMPARISON STUDY: Chest CT performed earlier today. TECHNIQUE: Sonography of the deep venous system of the left upper extremity was performed. FINDINGS: There is extensive acute appearing deep venous thrombus within the left upper extremity. Specifically, there is occlusive deep venous thrombus within the left subclavian, axillary and brachial veins. Thrombus adjacent to the left subclavian pacer wire is noted. There is also superficial thrombus within the left basilic vein. IMPRESSION: Extensive acute appearing deep venous thrombus within the left upper extremity with occlusive thrombus within the left subclavian, axillary and brachial veins. Thrombus adjacent to the left subclavian pacer lead. ACT 112: Negative or not required by law. Electronically signed by: David Modi M.D. 04/23/2021 6:58 PM Chest CTA 04/23/21 13:26 CT ANGIOGRAPHY OF THE CHEST, PULMONARY EMBOLUS PROTOCOL CLINICAL HISTORY: Chest pain. COMPARISON STUDY: Chest CT March 22, 2021. Chest radiograph performed earlier today. TECHNIQUE: Following IV administration of 102 mL of Optiray, helical axial images of the chest were obtained utilizing the pulmonary embolus protocol. Maximal intensity projections and sagittal and coronal reformats were viewed on an independent 3D workstation. IV contrast was administered without complication. Automated exposure control was utilized for the study. A dose lowering technique was utilized adhering to the principles of ALARA. CT DOSE: 438.48 mGy.cm FINDINGS: No pulmonary emboli are identified. There is no thoracic aortic dissection. Cardiomegaly is again noted. There is no pericardial effusion. No pneumothorax or pleural effusion is noted. There is no consolidation to suggest pneumonia. There is no thoracic lymphadenopathy. Interval placement of a left subclavian pacer/AICD is noted since CT of March 22, 2021. Note is made of infiltration within the left axilla, including adjacent to the left axillary vessels. Areas of apparent increased attenuation within the left axillary and brachial veins are noted. Vessels appear distended. This may reflect a deep venous thrombus. This could extend into the left subclavian vein, adjacent to the pacer lead. IMPRESSION: 1. No pulmonary emboli identified. 2. Left axillary infiltration and apparent increased attenuation and dilatation of the left axillary and brachial veins which is suspicious for deep venous thrombus. This may extend into left subclavian vein, adjacent to the left subclavian pacer/AICD lead. Left upper extremity venous Doppler ultrasound is recommended for further evaluation. 3. Stable cardiomegaly. ACT 112: Negative or not required by law. Electronically signed by: David Modi M.D. 04/23/2021 3:43 PM Hospital Course (1) Acute deep vein thrombosis (DVT) of left upper extremity: Present on admission with LUE swelling and pain s/p recent ICD placement on 03/28 CTA showed left axillary infiltration and apparent increased attenuation and dilatation of the left axillary and brachial veins which is suspicious for deep venous thrombus. This may extend into left subclavian vein, adjacent to the left subclavian pacer/AICD lead. Venous doppler of LUE showed Extensive acute appearing deep venous thrombus within the left upper extremity with occlusive thrombus within the left subclavian, axillary and brachial veins. Thrombus adjacent to the left subclavian pacer lead. Currently on IV heparin drip Case discussed with vascular surgeon recommended to continue anticoagulant with heparin drip Not a candidate for thrombolytic agents due to recent pacemaker placement as per vascular surgery. Cancelled the official consult as per Vascular surgery Keep IV heparin drip for 48 hrs, then transition to Eliquis on discharge. Patient is not interested to do the Coumadin. cost for Eliquis that will be $125 per month Will d/c heparin drip and give 1st dose of Eliquis prior discharge Okay to apply warm compress for symptom management Patient was initiated on Eliquis 10 mg twice daily x7 days and then transition to 5 mg twice daily Pt doing well on day of discharge. He has no complaints. Vitals stable and saturating well on room air. Tolerating oral diet. Hypokalemia K 4.2 on 04/25/21 Stable Combined systolic and diastolic heart failure: Non-ischemic cardiomyopathy: Nonsustained ventricular tachycardia: Echo with moderately to severe reduced EF of 30 to 35%. Global hypokinesis. No LVH S/P ICD Placement by Dr. Hutchinson on 03/28 at [facility] Incision scar healing, no redness and drainage Cardiology on board Continue Entresto, Toprol, torsemide, spironolactone No further cardiology recommendations prior to discharge as per cardiology Follow up with cardiology as an outpatient in about 4 weeks. Stable Diabetes mellitus type 2, uncontrolled: A1c 11.1 in Jan 2021 Hold home agents Basal/bolus insulin per protocol Ok to resume Metformin on discharge Will need close outpatient follow up with PCP for better glycemic control continue outpatient regimen on ozempic, metformin, Lantus 35 units daily Hypertension Normotensive. Continue home medications LEVON (obstructive sleep apnea): Continue bipap HS History of tobacco use: Recently quit smoking. DVT Ppx: On heparin drip Code status: FULL PCP: Zeynep Dispo: Discharge home today Follow up with cardiology as an outpatient in about 4 weeks Follow up with your PCP within 1 week Total Time Total Time Spent Total Time Spent (In Minutes): 60 minutes Total Time Includes: Examination of the Patient, Discharge Planning, Medication Reconciliation, Communication With Other Providers and Other Discharge Plan Discharge Items Patient Disposition: Home - Self-Care Reason For Visit: JENN OJEDA DVT Discharge Diagnosis: Acute deep vein thrombosis (DVT) of left upper extremity: Hypokalemia Combined systolic and diastolic heart failure: Non-ischemic cardiomyopathy: Nonsustained ventricular tachycardia: Diabetes mellitus type 2, uncontrolled: Hypertension LEVON (obstructive sleep apnea): History of tobacco use: Activity: Resume your previous activity Non-emergency contact: Primary Care Provider and Therapy Coordinator Call non-emergency contact if: you have any medication questions Follow-up/Referrals: Rabia Adhikari DO [Outside Practitioners] - 05/02/21 11:20 am (Date & Time 05/02/2021 11:20 AM Provider Rabia Adhikari DO [facility] ) Diet: Carb Consistent or DM2 and Heart Healthy Addtl Attending Provider Instructions: Follow with your primary care provider Dr. Adhikari on 05/02/2021 @ 11:20 AM at the [facility] Follow up with your cardiology in 4 weeks Continue Eliquis 10mg twice a day for 7 days, then after 7 days 5mg twice a day Continue monitor for any abnormal bleeding Seek medical attention if your symptoms worsening Please hold tramadol if you become drowsy and lethargy Do not drive or operate any machine after taking tramadol Medication Instructions: Eliquis Your condition is typically treated with an anticoagulant. Anticoagulants will thin your blood to help prevent new clots. You should take her medication exactly as directed. Never skip a dose. Never take a double dose. If you miss a dose, take it as soon as you remember. Avoid NSAIDs (Motrin, Aleve, Naproxen, Ibuprofen, Advil, Meloxicam,..) due to risks of bleeding Call your Primary Care doctor if you experience any of the following: Swelling or Pain in your leg Sudden, continuous pain deep in a muscle Pain that worsens when you are active or when you stand still for a long time Chest Pain Sudden Shortness of Breath Rapid or pounding heart beat Fainting Dizziness Cough with blood or bloody sputum Sweating more than normal Bruises Heavy or uncontrolled bleeding Blood in your urine, stool or vomit Black or tarry stools Pending Studies at Discharge: No Stand-Alone Forms: [facility] [employer], Opioid Pain Management, Smoking Cessation Medications and DC Order Prescriptions: New Eliquis 5 mg tablet 5 mg PO UD Qty: 74 RF: 0 tramadol 50 mg tablet 50 mg PO Q8H PRN (Reason: pain) Qty: 15 RF: 0 Continued aspirin 81 mg tablet,delayed release (DR/EC) 81 mg PO PM RF: 0 nicotine 14 mg/24 hr patch 24 hour 14 mg topical DAILY RF: 0 nitroglycerin 0.4 mg tablet, sublingual 0.4 mg buccal UD RF: 0 rosuvastatin 20 mg tablet 20 mg PO DAILY RF: 0 Lantus Solostar U-100 Insulin 100 unit/mL (3 mL) insulin pen 35 unit SC HS RF: 0 spironolactone 25 mg Tablet 25 mg PO DAILY Qty: 30 RF: 1 magnesium oxide 400 mg (241.3 mg magnesium) Tablet 400 mg PO QAM Qty: 10 RF: 0 Entresto 97-103 mg tablet 1 tab PO BID RF: 0 metoprolol succinate 100 mg tablet extended release 24 hr 100 mg PO BID RF: 0 acetaminophen [Tylenol Extra Strength] 500 mg Tablet 2,000 mg PO Q6H PRN (Reason: Pain) RF: 0 Ozempic 1 mg/dose (4 mg/3 mL) pen injector 1 mg SUBCUT WK RF: 0 torsemide 20 mg tablet 20 mg PO BID RF: 0 Discharge Orders: Discharge Order (Routine); Ordered 04/27/21 Ordered By: Karine Glez Admission Data Admit Date/Time: 04/23/21 20:32 Attending Provider: Leslye Damon Admit Provider: Ramy Talley Primary Care Provider: Jenny Smith Other Providers: Ramy Talley ; David Woods ; Konrad Blake ; Dominick Ortiz ; Willard Moore ; Son Maria ; Jose Enrique Kat ; Kamilah Gordon ; Siena Hutchinson ; Yaritza Zaragoza ; Goyo Shah ; Karine Glez Other Interventions: Discharge Summary Assessment (RN) Last Done: 04/27/21 10:49 Supervising Physician Co-Signing Physician Notes Attending addendum; The chart of the patient, relevant investigations and discharge instructions with medications were reviewed. The patient was not seen as he left the hospital before I could have seen him. Agree with the discharge plan and medications as advised. Dr Maria E Damon
--- NOTE | 2021-05-12 16:59 | Coding Query ---
CODING QUERY The patient was not seen by me. To promote full compliance with coding requirements relating to patient care, provider participation is requested in all cases of tableau administrator uncertainty. Please assist us with the question(s) below: Coding Question(s): Patient admitted with left upper extremity DVT .On a previous admission, 03/28 , patient had ICD pacer insertion. Please document, if known or suspected, the etiology of the thrombosis. Thanks for your help. Dewayne Michel [facility] Physician's Response(s): Principal Diagnosis: "that condition established after study, to be chiefly responsible for occasioning the admission of the patient to the hospital for care." Co-Existing Principal Diagnosis: "when two or more diagnoses equally meet the criteria for principal diagnosis as determined by the circumstances of admission, diagnostic work up, and/or therapy provided, and the Alphabetic Index, Tabular List, or another coding guideline does not provide sequencing direction, any one of the diagnoses may be sequenced first." "When the physician has documented what appears to be a current diagnosis in the body of the record, but has not included the diagnosis in the final diagnostic statement, the physician should be asked whether the diagnosis should be added." (Source Coding Clinic 2 QTR90. p3-4) AUBREY
--- NOTE | 2021-05-13 05:00 | Coding Query ---
CODING QUERY To promote full compliance with coding requirements relating to patient care, provider participation is requested in all cases of teacher emotionally impaired uncertainty. Please assist us with the question(s) below: Coding Question(s): Patient admitted with left upper extremity DVT. 03/28 patient had ICD pacer insertion at [facility]. Please document, if known or suspected, the etiology of the DVT. Thanks for your help. Dewayne Michel [facility] Physician's Response(s): Suspected to be related to the ICD pacer insertion Principal Diagnosis: "that condition established after study, to be chiefly responsible for occasioning the admission of the patient to the hospital for care." Co-Existing Principal Diagnosis: "when two or more diagnoses equally meet the criteria for principal diagnosis as determined by the circumstances of admission, diagnostic work up, and/or therapy provided, and the Alphabetic Index, Tabular List, or another coding guideline does not provide sequencing direction, any one of the diagnoses may be sequenced first." "When the physician has documented what appears to be a current diagnosis in the body of the record, but has not included the diagnosis in the final diagnostic statement, the physician should be asked whether the diagnosis should be added." (Source Coding Clinic 2 QTR90. p3-4) AUBREY
== END 2021-04-27 12:29 | disposition home or self-care (01) | DRG 315 ==
LOC: ED 12:50 → SUATTDRO 20:32 → EDINP 20:32 → 2N 23:52 → 3E 04-26 23:00